=== PATIENT | male | born 1950 | race Caucasian/White ===

== ENCOUNTER 2024-12-02 15:47 | Inpatient (IN) ==
[2024-12-02] MEDS: OPTIRAY 320 125ml IV ONE (16:10)
[2024-12-02] MEDS ORDERED: LABETALOL HCL IV 5 MG/ML 20ML IV PRN ×2 (16:11→20:57)
--- NOTE | 2024-12-02 16:19 | CT Scan Report ---
Clinical History: Possible stroke Technique: Axial computed tomography images were obtained of the brain without intravenous contrast. Findings: There is mild cerebral atrophy, within expected limits for the patient's age. Extensive areas of decreased attenuation are seen within the periventricular white matter, likely representing chronic small vessel ischemic disease. There is no definite sign of acute or old infarction. No intracranial hemorrhage is evident. No definite mass lesion is seen on this noncontrast examination. There is no midline shift or other form of herniation. No hydrocephalus is seen. No fracture is identified. There is a small mucous retention cyst in the right maxillary sinus. The mastoid air cells appear clear. Impression: 1. Cerebral atrophy and chronic small vessel ischemic disease 2. No definite acute pathology These findings were discussed with the emergency department physician at 4:18 PM on 12/02/2024 Electronically signed by Cortez Alexis 12-02-2024 4:18 PM
[2024-12-02] MEDS: SODIUM CHLORIDE 0.9% 1,000 ML IV SCH (16:29)
--- NOTE | 2024-12-02 16:30 | Emergency Department Note ---
Impression & Plan Expressive aphasia, HTN (hypertension) ED Provider Note ED Provider Note NAME: JERZY OTT AGE:73 SEX: Male : 1950 ARRIVES VIA: private vehicle INFORMANT: Patient ED PROVIDER(s): Jeanie Lucas DO CHIEF COMPLAINT: difficulty speaking HPI: This is a 73-year-old male presents emerged apartment with family at bedside due to concern for difficulty speaking. Patient initially seen and made a stroke alert in triage by nursing staff as he was initially reported that patient symptoms began an hour ago. Patient taken immediately down for CT imaging. I was able to speak with the first who states that he has difficulty speaking actually began yesterday evening and then got worse today which prompted them to come in for further evaluation. She denies any recent illness, fevers or chills. She states no recent change in medication. She states the last change in medication was an increase in his sertraline 3 months ago which did seem to give him tremors. She states he has never had difficulty with speech like this before. She denies noting any facial droop. She denies that the patient complained of any pain or dizziness. Upon the patient returning to the room following CT, he denied any headache, dizziness, vision changes, chest pain, shortness of breath, abdominal pain, nausea or vomiting, weakness, or difficulty speaking. states at this time symptoms seem improved. PAST MEDICAL HISTORY:See Below PAST SURGICAL HISTORY:See Below FAMILY HISTORY:See Below SOCIAL HISTORY:See Below HOME MEDICATIONS:See Below ALLERGIES:See Below VITALS:See Below PHYSICAL EXAMINATION: GENERAL: alert, well appearing, well nourished, no distress, non-toxic EYE EXAM: normal conjunctiva, PERRL and EOM's grossly intact OROPHARYNX: no exudate, no erythema, lips, buccal mucosa, and tongue normal and mucous membranes are moist NECK: supple, no nuchal rigidity, no adenopathy, non-tender LUNGS: Clear to auscultation. Normal chest wall mechanics, no w/r/r HEART: no murmurs, S1 normal and S2 normal ABDOMEN: abdomen soft, non-tender, normo-active bowel sounds, no masses, no rebound or guarding. BACK: Back is symmetrical on inspection and there is no deformity, no midline tenderness, no CVA tenderness. SKIN: no rashes, petechiae, orbruising UPPER EXTREMITIES: upper extremities are grossly normal. FROM, nml pulses b/l. LOWER EXTREMITIES: No pitting edema. FROM, nml pulses b/l. NEURO EXAM: Normal sensorium, cranial nerves II-XII grossly intact, normal speech, no facial droop,nogross weakness of arms, no gross weakness of legs. Gross sensation intact. No ataxia. NIHSS 0 Vital Signs: reviewed and remarkable Differential Diagnosis: ischemic Stroke, hemorrhagic stroke, bells palsy, mass, neoplasm, migraine headache, seizure, subarachnoid hemorrhage, TIA, transient global amnesia, medication ADR, as well as others were considered MEDICAL DECISION MAKING: This is a 73-year-old male presents emergency department due to difficulty speaking. He was made a stroke alert in triage and taken directly to CT. Upon arrival in the room, exam performed which showed symptoms had resolved and an NIH stroke score was 0. Labs drawn and sent, IV established, EKG and chest x- ray performed at bedside interpreted by me. Patient started on IV fluids. Case discussed with on-call radiology regarding the CT imaging and then with [facility]. Given symptoms resolved and initially began 24 hours ago, no indication for TNK. Patient had no new or evolving changes on reassessment. Due to concern for symptoms though neurology recommended additional inpatient evaluation as well as additional antiplatelet medication and statin. Case discussed with the hospitalist team additionally for further evaluation and management. Consultation(s): 1618: Discussed with [facility] radiology. 1624: Discussed with [facility] neurology, Dr. [place]. Recommends asa 81 mg, plavix 300 mg, lipitor 40 mg and admission for further evaluation. 1712: Discussed with [facility] hospitalist team, for additional evaluation and management. ER Treatment Provided: See below Diagnostics Interpreted By Me: -ECG: Normal sinus at 76, normal axis, normal intervals, no acute ST/T wave changes -Cardiac Monitoring: An order was placed for continuous cardiac monitoring. The monitor shows a rate of 66 with normal sinus rhythm. -Laboratory studies: As stated above and show below. -Imaging studies: CT head: No ICH Triage Nursing Note Reviewed Prior/Outside Records Reviewed Critical Care: Critical care of 39 min performed to assess and manage high likelihood of life-threatening strokelike symptoms, involving labs and imaging performed with assessment to evaluate strokelike symptoms diagnosis with frequent reassessment. This time includes bedside time, treatment discussions with patient/family/consultants, documentation time and excludes procedure time. Past Med/Surg History Problem List Depression Hypomagnesemia DM type 2 (diabetes mellitus, type 2) Stroke-like symptoms HTN (hypertension) (Acute) Expressive aphasia (Acute) High cholesterol (Chronic) Nausea, vomiting, and diarrhea (Acute) Palpitations (Acute) Vomiting (Acute) Medical History No pertinent family history Diarrhea Hypertension Surgical History No pertinent past surgical history Social History Smoking Status: Former smoker Smoking End Date: 1985; Hx Alcohol Use: No Hx Substance Use: No Preferred Language: Estonian Communication Ability: Effective Material Handler Required: No Beliefs That Will Affect Care: None Current Living Situation: Spouse Other Information That Helps Us Care for You: No Feels Safe at Home: Yes Safety Concerns: Feels Safe At This Time Assistive Devices: CPAP Allergies Allergies Allergy/AdvReac Type Severity Reaction Status Date / Time citalopram Allergy Intermediate "ITCHY Unverified 09/19/20 15:09 HANDS" oxycodone Allergy Intermediate GI SYMPTOMS Verified 09/19/20 15:09 meperidine Allergy Mild Verified 09/19/20 15:09 metaxalone Allergy Unknown Verified 09/19/20 15:09 Sulfa (Sulfonamide Allergy Unknown Verified 09/19/20 15:09 Antibiotics) promethazine AdvReac Mild TRIGGERS Verified 09/19/20 15:09 MIGRAINES Home Meds Home Medications Medication Instructions Recorded Confirmed aspirin 81 mg tablet,delayed 81 mg PO QAM 09/19/20 12/02/24 release atorvastatin 40 mg tablet 40 mg PO QAM 09/19/20 12/02/24 hydrocodone 5 mg-acetaminophen 325 1 tab PO TID PRN Pain 09/19/20 12/02/24 mg tablet omeprazole 20 mg capsule,delayed 20 mg PO QAM 09/19/20 12/02/24 release betamethasone, augmented 0.05 % 1 applic topical BID PRN 12/02/24 12/02/24 topical ointment DIRECTED metformin 500 mg tablet,extended 500 mg PO BIDM 12/02/24 12/02/24 release 24 hr multivitamin 1 tab PO QAM 12/02/24 12/02/24 ondansetron 4 mg disintegrating 4 mg translingual Q8 PRN 12/02/24 12/02/24 tablet NAUSEA/VOMITING sertraline 100 mg tablet 100 mg PO QPM 12/02/24 12/02/24 sildenafil 50 mg tablet 50 - 100 mg PO DAILY PRN Erectile 12/02/24 12/02/24 Dysfunction tamsulosin 0.4 mg capsule 0.4 mg PO QAM 12/02/24 12/02/24 testosterone 50 mg/5 gram (1 %) 50 mg transdermal QAM 12/02/24 12/02/24 transdermal gel Results & Data (ED) Vital Signs Vital Signs - 24 hr 12/02/24 15:55 12/02/24 16:15 12/02/24 16:32 Temperature 36.2 C L Temperature Source Skin Pulse Rate 83 Pulse Rate [Apical] 75 71 Pulse Rhythm [Apical] Regular Pulse Strength [Apical] Normal Normal Respiratory Rate 18 24 18 Respiratory Effort / Characteristics Non-Labored Non-Labored Spontaneous Non-Labored Spontaneous Respiratory Depth Normal Normal Normal Respiratory Pattern Regular Regular Regular Blood Pressure 173/62 H Blood Pressure [Right Arm] 182/85 H 161/82 H Blood Pressure Mean 99 Blood Pressure Mean [Right Arm] 117 108 Blood Pressure Position [Right Arm] Sitting Pulse Oximetry 96 98 98 Oxygen Delivery Method Room Air Room Air Room Air Sepsis Recent Fever Within 48 Hours No Sepsis New/Unexplained Change in Mental Status N/A Sepsis Action Taken by Nursing No Action Required 12/02/24 16:35 Temperature Temperature Source Pulse Rate 86 Pulse Rate [Apical] Pulse Rhythm [Apical] Pulse Strength [Apical] Respiratory Rate Respiratory Effort / Characteristics Respiratory Depth Respiratory Pattern Blood Pressure Blood Pressure [Right Arm] Blood Pressure Mean Blood Pressure Mean [Right Arm] Blood Pressure Position [Right Arm] Pulse Oximetry Oxygen Delivery Method Sepsis Recent Fever Within 48 Hours Sepsis New/Unexplained Change in Mental Status Sepsis Action Taken by Nursing Laboratory Data 12/03/24 05:23 12/03/24 05:23 Lab Results 12/02/24 Range/Units 16:19 WBC 7.09 (4.8-10.8) K/ul RBC 4.03 L (4.70-6.10) M/uL Hgb 11.8 L (14.0-18.0) g/dl Hct 34.8 L (42.0-52.0) % MCV 86.4 (80.0-100.0) fL MCH 29.3 (25.0-34.0) pg MCHC 33.9 (32.0-36.0) g/dL RDW Std Deviation 40.5 (36.4-46.3) fL RDW Coeff of Carmen 13.0 (11.5-14.5) % Plt Count 179 (130-400) K/uL MPV 9.2 L (9.4-12.4) fL Immature Gran % (Auto) 0.4 % Neut % (Auto) 50.5 % Lymph % (Auto) 36.4 % Kent % (Auto) 9.0 % Eos % (Auto) 3.1 % Baso % (Auto) 0.6 % Neut # (Auto) 3.58 (1.40-6.50) K/uL Lymph # (Auto) 2.58 (1.20-3.40) K/uL Kent # (Auto) 0.64 H (0.11-0.59) K/uL Eos # (Auto) 0.22 (0.00-0.50) K/uL Baso # (Auto) 0.04 (0.00-0.20) K/uL Immature Gran # (Auto) 0.03 (0.01-0.20) K/uL PT 11.0 (9.0-12.0) Seconds INR 1.0 (0.9-1.1) APTT 24 (21-31) Seconds PTT Ratio 0.9 Sodium 137 (136-145) mmol/L Potassium 3.5 (3.5-5.1) mmol/L Chloride 104 (98-107) mmol/L Carbon Dioxide 28 (21-32) mmol/L Anion Gap 5 (3-11) BUN 19 (6-23) mg/dl Creatinine 0.80 (0.6-1.4) mg/dl Est Cr Clr Drug Dosing 83.6 ml/min eGFR 92.87 BUN/Creatinine Ratio 23.8 H (10-20) Glucose 164 H (70-99(Fasting)) mg/dl Lactate 1.7 (0.4-2.0) mmol/L Calcium 8.4 L (8.6-10.3) mg/dl Magnesium 1.4 L (1.7-2.4) mg/dl Total Bilirubin 0.5 (0.2-1.0) mg/dl AST 16 (13-39) U/L ALT 15 (7-52) U/L Alkaline Phosphatase 62 (34-104) U/L Troponin I High Sens 3.7 (0-20) pg/ml Total Protein 5.8 L (6.0-8.3) gm/dl Albumin 3.7 (3.4-5.0) gm/dl Globulin 2.1 L (2.5-4.0) gm/dl Albumin/Globulin Ratio 1.8 (0.9-2) Blood Type O Negative Antibody Screen NEGATIVE Administered Medications Acetaminophen (Acetaminophen 325 Mg Tab) 650 mg PO Q4H PRN PRN Reason: Pain or Fever Stop: 01/01/25 20:56 Last Admin: 12/03/24 15:26 Dose: 650 mg Documented By: [facility] Admin: 12/03/24 11:17 Dose: 650 mg Documented By: [facility] Aspirin (Aspirin 81 Mg Ectab) 81 mg PO [facility] Stop: 01/02/25 08:59 Last Admin: 12/03/24 09:12 Dose: 81 mg Documented By: [facility] Atorvastatin Calcium (Atorvastatin 40 Mg Tab) 40 mg PO [facility] Stop: 01/02/25 08:59 Last Admin: 12/03/24 09:12 Dose: 40 mg Documented By: [facility] Heparin Sodium (Porcine) (Heparin Sod 5,000 Unit/0.5 Ml Vial) 5,000 units SQ Q12 [facility] Stop: 01/01/25 20:59 Last Admin: 12/03/24 20:29 Dose: 5,000 units Documented By: Admin: 12/03/24 09:26 Dose: 5,000 units Documented By: Admin: 12/02/24 21:28 Dose: 5,000 units Documented By: JASON Insulin Aspart (Insulin Aspart Per Unit Charge) 0 units SC ACHS [facility] Stop: 01/01/25 20:59 Last Admin: 12/03/24 20:29 Dose: Not Given Documented By: Admin: 12/03/24 18:14 Dose: 4 units Documented By: ANSELMO Co-signed By: JOHANNA Admin: 12/03/24 14:16 Dose: 7 units Documented By: ANSELMO Co-signed By: JOHANNA Admin: 12/03/24 09:42 Dose: 4 units Documented By: ANSELMO Co-signed By: JOHANNA Admin: 12/02/24 21:29 Dose: Not Given Documented By: JASON Multivitamins (Multivitamin Tab) 1 tab PO [facility] Stop: 01/02/25 08:59 Last Admin: 12/03/24 09:12 Dose: 1 tab Documented By: ANSELMO Pantoprazole Sodium (Pantoprazole 40 Mg Tab) 40 mg PO [facility] Stop: 01/02/25 08:59 Last Admin: 12/03/24 09:12 Dose: 40 mg Documented By: ANSELMO Sertraline HCl (Sertraline Hcl 100 Mg Tablet) 100 mg PO QPM [facility] Stop: 01/01/25 20:59 Last Admin: 12/03/24 20:28 Dose: 100 mg Documented By: Admin: 12/02/24 21:30 Dose: 100 mg Documented By: JASON Discontinued Medications Atorvastatin Calcium (Atorvastatin 40 Mg Tab) 40 mg PO NOW STA Stop: 12/02/24 17:09 Last Admin: 12/02/24 17:19 Dose: 40 mg Documented By: HALINA Clopidogrel Bisulfate (Clopidogrel Bisulfate 300 Mg Tab) 300 mg PO NOW STA Stop: 12/02/24 17:09 Last Admin: 12/02/24 17:19 Dose: 300 mg Documented By: HALINA Clopidogrel Bisulfate (Clopidogrel Bisulfate 75 Mg Tab) 75 mg PO [facility] Stop: 01/02/25 08:59 Last Admin: 12/03/24 09:12 Dose: 75 mg Documented By: ANSELMO Gadobutrol (Gadobutrol 65ml Vial) 8.5 ml IV ONCE ONE Stop: 12/03/24 17:06 Last Admin: 12/03/24 17:05 Dose: 8.5 ml Documented By: MOLINA Sodium Chloride (Nss) 1,000 mls @ 125 mls/hr IV .Q8H [facility] Stop: 12/03/24 16:14 Last Infusion: 12/02/24 21:11 Dose: Infused Documented By: Admin: 12/02/24 16:29 Dose: 125 mls/hr Documented By: HALINA Magnesium Sulfate/Dextrose (Magnesium Sulfate / D5w) 1 gm in 100 mls @ 100 mls/hr IV NOW STA Stop: 12/02/24 18:05 Last Infusion: 12/02/24 18:20 Dose: Infused Documented By: Admin: 12/02/24 17:19 Dose: 100 mls/hr Documented By: HALINA Magnesium Sulfate/Dextrose (Magnesium Sulfate / D5w) 1 gm in 100 mls @ 100 mls/hr IV Q1H [facility] Stop: 12/02/24 20:14 Last Infusion: 12/02/24 21:09 Dose: Infused Documented By: Admin: 12/02/24 19:28 Dose: 100 mls/hr Documented By: Infusion: 12/02/24 19:27 Dose: Infused Documented By: Admin: 12/02/24 18:27 Dose: 100 mls/hr Documented By: HALINA Ioversol (Optiray 320 125ml) 119 ml IV ONCE ONE Stop: 12/02/24 16:10 Last Admin: 12/02/24 16:10 Dose: 119 ml Documented By: NINO Imaging Data Radiologist's Impression: Head CT 12/02/24 16:00 Clinical History: Possible stroke Technique: Axial computed tomography images were obtained of the brain without intravenous contrast. Findings: There is mild cerebral atrophy, within expected limits for the patient's age. Extensive areas of decreased attenuation are seen within the periventricular white matter, likely representing chronic small vessel ischemic disease. There is no definite sign of acute or old infarction. No intracranial hemorrhage is evident. No definite mass lesion is seen on this noncontrast examination. There is no midline shift or other form of herniation. No hydrocephalus is seen. No fracture is identified. There is a small mucous retention cyst in the right maxillary sinus. The mastoid air cells appear clear. Impression: 1. Cerebral atrophy and chronic small vessel ischemic disease 2. No definite acute pathology These findings were discussed with the emergency department physician at 4:18 PM on 12/02/2024 Electronically signed by Cortez Alexis 12-02-2024 4:18 PM Head CTA 12/02/24 16:06 Clinical history: Expressive aphasia. Possible stroke Technique: Axial computed tomography images were obtained of the brain after the administration of intravenous contrast according to the CT angiogram protocol Findings: There is calcified plaque within the cavernous and supraclinoid segments of the internal carotid arteries bilaterally No definite stenosis or aneurysm is seen of the anterior, middle, or posterior cerebral artery circulations. The visualized vertebral arteries and the basilar artery appear unremarkable Impression: No definite stenosis or aneurysm of the intracranial arteries Electronically signed by Cortez Alexis 12-02-2024 4:34 PM Neck CTA 12/02/24 16:06 Clinical history: Expressive aphasia. Possible stroke Technique: Axial computed tomography images were obtained of the neck after the administration of intravenous contrast according to the CT angiogram protocol Findings: No stenosis is seen of the common carotid arteries bilaterally. There is partially calcified plaque within the right carotid bulb and the proximal left internal carotid artery, less than 30% diameter narrowing. The remainder of the internal carotid arteries appear patent bilaterally. No stenosis of the external carotid arteries is seen The vertebral arteries are patent bilaterally with no significant stenosis seen. 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 Impression: Bilateral carotid atherosclerosis, without apparent stenosis Electronically signed by Cortez Alexis 12-02-2024 4:36 PM Discharge Plan Visit Data Chief Complaint: TIA Symptoms Stated Complaint: SPEACH, BALANCE, SHAKY ED Provider: Jeanie Lucas Discharge Problem: Expressive aphasia, HTN (hypertension) Patient Disposition: Admitted As Inpatient Discharge Instructions Interventions: ED Discharge Assessment Last Done: 12/02/24 20:21
--- NOTE | 2024-12-02 16:34 | CT Scan Report ---
Clinical history: Expressive aphasia. Possible stroke Technique: Axial computed tomography images were obtained of the brain after the administration of intravenous contrast according to the CT angiogram protocol Findings: There is calcified plaque within the cavernous and supraclinoid segments of the internal carotid arteries bilaterally No definite stenosis or aneurysm is seen of the anterior, middle, or posterior cerebral artery circulations. The visualized vertebral arteries and the basilar artery appear unremarkable Impression: No definite stenosis or aneurysm of the intracranial arteries Electronically signed by Cortez Alexis 12-02-2024 4:34 PM
--- NOTE | 2024-12-02 16:37 | CT Scan Report ---
Clinical history: Expressive aphasia. Possible stroke Technique: Axial computed tomography images were obtained of the neck after the administration of intravenous contrast according to the CT angiogram protocol Findings: No stenosis is seen of the common carotid arteries bilaterally. There is partially calcified plaque within the right carotid bulb and the proximal left internal carotid artery, less than 30% diameter narrowing. The remainder of the internal carotid arteries appear patent bilaterally. No stenosis of the external carotid arteries is seen The vertebral arteries are patent bilaterally with no significant stenosis seen. 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 Impression: Bilateral carotid atherosclerosis, without apparent stenosis Electronically signed by Cortez Alexis 12-02-2024 4:36 PM
[2024-12-02 16:38] LABS: Basophils # (auto) 0.04 K/uL (0.00-0.20); Basophils % (auto) 0.6 %; Eosinophils # (auto) 0.22 K/uL (0.00-0.50); Eosinophils % (auto) 3.1 %; Hematocrit (blood only) 34.8 % (42.0-52.0); Hemoglobin 11.8 g/dl (14.0-18.0); Immature Granulocytes # (auto) 0.03 K/uL (0.01-0.20); Immature Granulocytes % (auto) 0.4 %; Lymphocytes # (auto) 2.58 K/uL (1.20-3.40); Lymphocytes % (auto) 36.4 %; Mean Corpuscular Hemoglobin 29.3 pg (25.0-34.0); Mean Corpuscular Hgb Conc 33.9 g/dL (32.0-36.0); Mean Corpuscular Volume 86.4 fL (80.0-100.0); Mean Platelet Volume 9.2 fL (9.4-12.4); Monocytes # (auto) 0.64 K/uL (0.11-0.59); Neutrophils # (auto) 3.58 K/uL (1.40-6.50); Neutrophils % (auto) 50.5 %; Platelet Count 179 K/uL (130-400); RDW Standard Deviation 40.5 fL (36.4-46.3); Red Blood Count 4.03 M/uL (4.70-6.10); White Blood Count 7.09 K/ul (4.8-10.8)
[2024-12-02 16:50] LABS: Albumin Globulin Ratio 1.8 (0.9-2); Albumin Level 3.7 gm/dl (3.4-5.0); BUN Creatinine Ratio 23.8 (10-20); Bilirubin,Total 0.5 mg/dl (0.2-1.0); Calcium 8.4 mg/dl (8.6-10.3); Creatinine Clr Calc Pharmacy 83.6 ml/min; Globulin 2.1 gm/dl (2.5-4.0); Magnesium 1.4 mg/dl (1.7-2.4); Potassium 3.5 mmol/L (3.5-5.1); Total Protein 5.8 gm/dl (6.0-8.3)
[2024-12-02 16:57] LABS: Troponin I High Sensitivity 3.7 pg/ml (0-20)
[2024-12-02 17:00] LABS: Partial Thromboplastin Ratio 0.9; Partial Thromboplastin Time 24 Seconds (21-31)
--- NOTE | 2024-12-02 17:14 | History & Physical Report ---
Date of Service December 02, 2024 Assessment & Plan (1) Stroke-like symptoms: Plan: Jean Gates is a 73y/o M with PMHx significant for HTN, HLD, DMII, diabetic polyneuropathy, JERMAINE on CPAP, asthma, GERD, BPH with LUTS, sacroiliitis, insomnia and depression who presented to the ED for evaluation of strokelike symptoms - notably expressive aphasia. Refer to [facility] for further details. Head CT - No acute pathology. Cerebral atrophy and chronic small vessel ischemic disease. Neck CTA - Bilateral carotid atherosclerosis without apparent stenosis. Head CTA - No definite stenosis or aneurysm of the intracranial arteries. S/p 300mg Plavix and 40mg Lipitor in the ED as advised by the [facility] per discussion with the ED provider. Continue ASA 81mg daily. Adding on Plavix 75mg daily starting tomorrow AM. Continue Lipitor 40mg daily. Feels speech is back to baseline at time of our evaluation in the ED. Allow for permissive HTN; PRN IV antihypertensives for SBP>185. Full stroke work-up pending and includes: brain MRI, echocardiogram, neurology consult, AM lipid panel, speech therapy evaluation and PT/OT evaluations. (2) DM type 2 (diabetes mellitus, type 2): Plan: Hold home metformin, SSI regimen while inpatient. BSG checks ACHS. Most recent Hgb A1c was 6.2% about 2 months ago. (3) Hypomagnesemia: Plan: Mag 1.4 on presentation. S/p 1 bag IV mag in ED. Will give another 2 bags of IV mag. Continue to monitor and replete PRN. (4) Depression: Plan: Continue Zoloft 100mg QPM. Recently increased dose of Zoloft from 50mg QPM to 100mg QPM about 2 months ago. Will need close PCP f/u appointment to discuss transitioning to a different antidepressant medication possibly as the Zoloft has caused him to develop BUE tremors. DVT Prophylaxis: SQ Heparin Code Status: FULL CODE PCP: Arthur Ng DO Disposition: Admit to Med/Telemetry for further inpatient evaluation and management. Patient seen in collaboration with Dr. Andrews. Please see addendum. I spent a total of 50 minutes coordinating, documenting, and providing care for this patient excluding time spent in the performance of separately billed services or time spent by another provider/QHP. This included personally reviewing all current laboratories and imaging studies, medical reconciliation, outpatient chart review and discussion with specialists. This chart was completed in part utilizing Speech Voice Recognition Software. Grammatical errors, random word insertions, pronoun errors, and incomplete sentences are an occasional consequence of this system due to software limitations, ambient noise, and hardware issues. Any formal questions or concerns about the content, text, or information contained within the body of this dictation should be directly addressed to the provider for clarification. History of Present Illness Chief Complaint: Strokelike Symptoms Primary Care Provider: Arthur Ng DO Jean Gates is a 73y/o M with PMHx significant for HTN, HLD, DMII, diabetic polyneuropathy, JERMAINE on CPAP, asthma, GERD, BPH with LUTS, sacroiliitis, insomnia and depression who presented to the ED for evaluation of strokelike symptoms including expressive aphasia and word finding difficulty. History obtained with the patient, at bedside and associated chart review. Patient seen at bedside with Dr. Andrews. Patient initially seen in ED triage and made a stroke alert by nursing staff as it was reported that the patient's strokelike symptoms began an hour prior to presentation. However, upon the ED provider's further discussion with the patient's at bedside, it was determined that the patient's symptoms actually started about 2 weeks ago and subsequently worsened today which prompted her to bring him in for evaluation. Patient reports difficulty with word finding and expressive aphasia over the past 2 weeks. Also with some slurred speech. mentions that it got to the point today where he could "not get his words out." Patient also mentions that he was trying to file out his tax forms earlier today and was unable to write. Mentions he could hold a pen but did could not comprehend how to write anything. Denies any weakness, numbness or tingling in his extremities since this all began 2 weeks ago. Also denies any facial drooping, visual disturbances or gait abnormalities over the past 2 weeks. No recent medication changes other than his Zoloft dose was increased from 50mg QPM to 100mg QPM about 2 months ago. He has BUE tremors which have been ongoing since he started taking Zoloft. He notes that his tremors seem to be worse since increasing his Zoloft dose 2 months ago but denies any loss of strength in his BUE. At the time of our evaluation, patient feels his speech is back to baseline. Head CT noted cerebral atrophy and chronic small vessel ischemic disease but otherwise was negative for any acute infarcts. Head CTA with no definite stenosis or aneurysm of the intracranial arteries. Neck CTA with bilateral carotid atherosclerosis however there is no apparent stenosis. CXR unremarkable. S/p 300mg Plavix and 40mg Lipitor in the ED [facility] per discussion with the ED provider. Thrombolytics not indicated. Also s/p 1L NSS in the ED. No alcohol use. Stopped smoking back in October 1985. 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 Allergies Allergy/AdvReac Type Severity Reaction Status Date / Time citalopram Allergy Intermediate "ITCHY Unverified 09/19/20 15:09 HANDS" oxycodone Allergy Intermediate GI SYMPTOMS Verified 09/19/20 15:09 meperidine Allergy Mild Verified 09/19/20 15:09 metaxalone Allergy Unknown Verified 09/19/20 15:09 Sulfa (Sulfonamide Allergy Unknown Verified 09/19/20 15:09 Antibiotics) promethazine AdvReac Mild TRIGGERS Verified 09/19/20 15:09 MIGRAINES Home Medications Medication Instructions Recorded Confirmed Type aspirin 81 mg tablet,delayed 81 mg PO QAM 09/19/20 12/02/24 History release atorvastatin 40 mg tablet 40 mg PO QAM 09/19/20 12/02/24 History hydrocodone 5 mg-acetaminophen 325 1 tab PO TID PRN Pain 09/19/20 12/02/24 Hi story mg tablet omeprazole 20 mg capsule,delayed 20 mg PO QAM 09/19/20 12/02/24 History release betamethasone, augmented 0.05 % 1 applic topical BID PRN 12/02/24 12/02/24 History topical ointment DIRECTED metformin 500 mg tablet,extended 500 mg PO BIDM 12/02/24 12/02/24 History release 24 hr multivitamin 1 tab PO QAM 12/02/24 12/02/24 History ondansetron 4 mg disintegrating 4 mg translingual Q8 PRN 12/02/24 12/02/24 History tablet NAUSEA/VOMITING sertraline 100 mg tablet 100 mg PO QPM 12/02/24 12/02/24 History sildenafil 50 mg tablet 50 - 100 mg PO DAILY PRN Erectile 12/02/24 12/02/24 History Dysfunction tamsulosin 0.4 mg capsule 0.4 mg PO QAM 12/02/24 12/02/24 History testosterone 50 mg/5 gram (1 %) 50 mg transdermal QAM 12/02/24 12/02/24 History transdermal gel Past Med/Surg History Problem List Depression Hypomagnesemia DM type 2 (diabetes mellitus, type 2) Stroke-like symptoms HTN (hypertension) (Acute) Expressive aphasia (Acute) High cholesterol (Chronic) Nausea, vomiting, and diarrhea (Acute) Palpitations (Acute) Vomiting (Acute) Medical History No pertinent family history Diarrhea Hypertension Surgical History No pertinent past surgical history Social History Smoking Status: Former smoker Preferred Language: Vietnamese Feels Safe at Home: Yes Review of Systems Review of Systems: At least ten systems reviewed and negative, except as noted in the HPI. Physical Exam Physical Exam: Please refer to Dr. Andrews's addendum for physical examination findings. Results & Data Results & Data Vital Signs (Past 12 Hours) Vital Signs Temp Pulse Pulse Resp BP BP Pulse Ox 12/02/24 16:35 86 12/02/24 16:32 71 18 161/82 H 98 12/02/24 16:15 75 24 182/85 H 98 12/02/24 15:55 36.2 C L 83 18 173/62 H 96 O2 Del Method 12/02/24 16:35 12/02/24 16:32 Room Air 12/02/24 16:15 Room Air 12/02/24 15:55 Room Air Laboratory Results Short CBC 12/02/24 Range/Units 16:19 WBC 7.09 (4.8-10.8) K/ul Hgb 11.8 L (14.0-18.0) g/dl Hct 34.8 L (42.0-52.0) % Plt Count 179 (130-400) K/uL BMP 12/02/24 16:19 Sodium 137 Potassium 3.5 Chloride 104 Carbon Dioxide 28 BUN 19 Creatinine 0.80 Glucose 164 H Calcium 8.4 L Liver Function 12/02/24 Range/Units 16:19 Total Bilirubin 0.5 (0.2-1.0) mg/dl AST 16 (13-39) U/L ALT 15 (7-52) U/L Alkaline Phosphatase 62 (34-104) U/L Albumin 3.7 (3.4-5.0) gm/dl Diagnostic Findings Head CT 12/02/24 16:00 Clinical History: Possible stroke Technique: Axial computed tomography images were obtained of the brain without intravenous contrast. Findings: There is mild cerebral atrophy, within expected limits for the patient's age. Extensive areas of decreased attenuation are seen within the periventricular white matter, likely representing chronic small vessel ischemic disease. There is no definite sign of acute or old infarction. No intracranial hemorrhage is evident. No definite mass lesion is seen on this noncontrast examination. There is no midline shift or other form of herniation. No hydrocephalus is seen. No fracture is identified. There is a small mucous retention cyst in the right maxillary sinus. The mastoid air cells appear clear. Impression: 1. Cerebral atrophy and chronic small vessel ischemic disease 2. No definite acute pathology These findings were discussed with the emergency department physician at 4:18 PM on 12/02/2024 Electronically signed by Cortez Alexis 12-02-2024 4:18 PM Head CTA 12/02/24 16:06 Clinical history: Expressive aphasia. Possible stroke Technique: Axial computed tomography images were obtained of the brain after the administration of intravenous contrast according to the CT angiogram protocol Findings: There is calcified plaque within the cavernous and supraclinoid segments of the internal carotid arteries bilaterally No definite stenosis or aneurysm is seen of the anterior, middle, or posterior cerebral artery circulations. The visualized vertebral arteries and the basilar artery appear unremarkable Impression: No definite stenosis or aneurysm of the intracranial arteries Electronically signed by Cortez Alexis 12-02-2024 4:34 PM Neck CTA 12/02/24 16:06 Clinical history: Expressive aphasia. Possible stroke Technique: Axial computed tomography images were obtained of the neck after the administration of intravenous contrast according to the CT angiogram protocol Findings: No stenosis is seen of the common carotid arteries bilaterally. There is partially calcified plaque within the right carotid bulb and the proximal left internal carotid artery, less than 30% diameter narrowing. The remainder of the internal carotid arteries appear patent bilaterally. No stenosis of the external carotid arteries is seen The vertebral arteries are patent bilaterally with no significant stenosis seen. 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 Impression: Bilateral carotid atherosclerosis, without apparent stenosis Electronically signed by Cortez Alexis 12-02-2024 4:36 PM Medications Administered Sodium Chloride (Nss) 1,000 mls @ 125 mls/hr IV .Q8H KAREEN Stop: 12/03/24 16:14 Last Admin: 12/02/24 16:29 Dose: 125 mls/hr Documented By: SNS Discontinued Medications Ioversol (Optiray 320 125ml) 119 ml IV ONCE ONE Stop: 12/02/24 16:10 Last Admin: 12/02/24 16:10 Dose: 119 ml Documented By: NINO Code Status & VTE Plan Code Status FULL CODE Supervising Physician Co-Signing Physician Notes 73-year-old male with PMH of HTN, HLD, T2DM, diabetic polyneuropathy, JERMAINE on CPAP, asthma, GERD, BPH with LUTS, sacroiliitis, insomnia and depression pr esented to the ED for evaluation of strokelike symptoms. Patient reports that he has been having difficulty finding words since about 2 weeks, gradually worsening, and hence decided to present to the ED. He denies any numbness or tingling, denies any unilateral weakness of arms or legs. He reports improvement in this expressive aphasia after coming at bedside exam. Patient denies fever/cough/sore throat/chest pain/belly pain/pain or burning with passing urine/acute changes in bowel habits/nausea/vomiting/difficulty swallowing. Patient reports appetite being okay. Labs reviewed, CBC WNL, RFT fairly WNL, magnesium 1.4 we will repalce w/ 2 gm IV magnesium. UA negative for UTI. Admitting CT head, CTA head and neck reviewed. No acute finding. CXR with no acute finding. Strokelike symptoms: Will get MRI brain, echo, lipid panel, a1c, neurology consult, telemetry monitoring, permissive hypertension. Add as needed blood pressure medications for blood pressure above 185 mmHg, 5 Mg IV labetalol q4h alternate with 5 Mg IV hydralazine q4h]. add plavix, c/w home aspirin and statin. On exam: GENERAL: Alert and oriented x3. NAD, on RA. some pauses during communication, overall was good. HEENT: No pallor, no icterus. Pupils equal, round and reactive to light. Oral mucosa moist. NECK: No JVD, no neck masses. HEART: S1 and S2 heard. Regular rate and rhythm. No murmur, no gallop. RESPIRATORY SYSTEM: Normal AP diameter. No accessory muscle use. No wheezing, no crackles. ABDOMEN: Soft, bowel sounds present, nontender, no distention. CENTRAL NERVOUS SYSTEM: No facial droop. Speech is clear. Obeys simple commands. Moves extremities. power 5/5 all extremities. EXTREMITIES: No edema, no erythema seen. I have seen and examined the patient and have discussed the case with the provider above. I agree with the assessment and plan as stated. Time spent separately: 35 min. (2) DM type 2 (diabetes mellitus, type 2) Diabetes mellitus complication status: with other specified complication Diabetes mellitus [employer] insulin use: without [employer] use Qualified Code(s): E11.69 - Type 2 diabetes mellitus with other specified complication (4) Depression Depression Type: unspecified Qualified Code(s): F32.A - Depression, unspecifi ed
[2024-12-02] MEDS: ATORVASTATIN 40 MG TAB PO STA (17:19)
[2024-12-02] MEDS: MAGNESIUM SULFATE / D5W 1 GM/100 ML BAG IV STA (17:19)
[2024-12-02] MEDS: CLOPIDOGREL BISULFATE 300 MG TAB PO STA (17:19)
--- NOTE | 2024-12-02 17:26 | XRay Report ---
Exam: Chest (two views) Reason for exam: Stroke alert Previous studies 01/05/2016 PA and lateral views of the chest demonstrate the lung melissa to be clear and normally expanded. The cardiovascular markings and pulmonary vascular pattern appear normal. Mediastinal structures and ravin are normal. Chronic elevation the right hemidiaphragm is stable. The bones and soft tissues show no active process. Impression: Negative for active cardiopulmonary disease. Electronically signed by Jay Jay Martin 12-02-2024 5:26 PM
[2024-12-02 17:41] LABS: Appearance Urine Clear (Clear); Bilirubin Urine Negative (Negative); Blood Urine Negative (Negative); Color Urine Yellow; Glucose Urine UA Negative (Negative); Ketones Urine Negative (Negative); Leukocyte Esterase Urine Negative (Negative); Nitrite Urine Negative (Negative); Protein Urine Negative (Negative); Specific Gravity Urine > 1.045 (1.000-1.030); Urobilinogen Urine Negative (Negative); pH Urine 5.5 (4.5-7.5)
[2024-12-02] MEDS: MAGNESIUM SULFATE / D5W 1 GM/100 ML BAG IV SCH (18:27)
[2024-12-02] MEDS ORDERED: ONDANSETRON INJ 2 MG/ML 2 ML VIAL IV PRN (20:57)
[2024-12-02] MEDS ORDERED: GLUCOSE 10 TAB/TUBE PO PRN (20:57)
[2024-12-02] MEDS ORDERED: GLUCOSE 40% GEL 15 GM TUBE PO PRN (20:57)
[2024-12-02] MEDS ORDERED: GLUCAGON FOR INJ 1 MG VIAL SQ PRN (20:57)
[2024-12-02] MEDS ORDERED: MAGNESIUM HYDROXIDE SUSP 30 ML UDC PO PRN (20:57)
[2024-12-02] MEDS ORDERED: hydrALAZINE HCL 20 MG/ML VIAL IV PRN (20:57)
[2024-12-02] MEDS ORDERED: DEXTROSE 50% 50 ML SYRINGE IV PRN (20:57)
[2024-12-02] MEDS ORDERED: POLYETHYLENE (MIRALAX) 17 GM PACK PO PRN (20:57)
[2024-12-02] MEDS ORDERED: PHARMACIST DISCHARGE MED REC CONSULT PRN (20:57)
[2024-12-02] MEDS ORDERED: CARBOHYDRATES FOR HYPOGLYCEMIA PO PRN (20:57)
[2024-12-02] MEDS: HEPARIN SOD 5,000 UNIT/0.5 ML VIAL SQ SCH (21:28)
[2024-12-02] MEDS: INSULIN ASPART PER UNIT CHARGE SC SCH (21:29)
[2024-12-02] MEDS: SERTRALINE HCL 100 MG TABLET PO SCH (21:30)
--- NOTE | 2024-12-03 00:33 | Magnetic Resonance Report ---
Exam(s): MRI HEAD Without Contrast EXAM: MR Head Without Intravenous Contrast CLINICAL HISTORY: Reason for exam: stroke r/o. TECHNIQUE: Magnetic resonance images of the head/brain without intravenous contrast in multiple planes. COMPARISON: No relevant prior studies available. FINDINGS: Brain: Advanced nonspecific right lateral changes. The flow voids at the base the brain are intact. No mass. No hemorrhage. No acute infarct. Ventricles: Unremarkable. No ventriculomegaly. Bones/joints: Unremarkable. No acute fracture. Sinuses: Unremarkable as visualized. No acute sinusitis. Mastoid air cells: Unremarkable as visualized. No mastoid effusion. Orbits: Bilateral lens replacements. IMPRESSION: No evidence for acute intracranial pathology. Electronically signed by: Amalia Barker MD 12/03/24 00:31 AM
--- OUTSIDE RECORDS SUMMARY | 2024-12-03 04:48 | External Medical Summary | Summary of Care ---
Author Name Unknown Organization [facility] Address [address] [place] [address] Phone [phone] Care Team Providers Care Mason Apprentice Name Role Phone Jessie Ng DO Primary Care Provider Reason for Visit * Reason Onset Date Comments Medication Refill 11/26/2024 Encounter Details Date Type Department Care Team (Late st Contact Info) Description 11/26/2024 Refill Family Practice [facility] [address] [place] [address] Jessie Ng DO [address] [place] [address] Pain Allergies Active Allergy Reactions Criticality Noted Date Comments Amoxicillin-Pot Clavulanate Diarrhea Low 06/18/20 14 Metaxalone 06/18/1998 Skelexin-numbness and tingling, itching Percodan 10/12/1997 GI upset Sulfa Antibiotics 10/28/2002 rash documented as of this encounter (statuses as of 12/01/2024) Medications aspirin enteric coated 81 MG TBEC Take 1 Tablet by mouth in the morning. 05/07/20 17 Active Blood Glucose Monitoring Suppl (Neema VERIO) w/Device KITIndications:Ty pe 2 diabetes mellitus without complication, without long-term current use of insulin (HCC) Use up to 4 times a day E11.9 1 Kit 05/20/20 20 Active OneTouch UltraSoft Lancets MISCIndications:T ype 2 diabetes mellitus without complication, without long-term current use of insulin ([facility]) Use as directed 4 times a day as needed for Hyperglycemia (high sugar). Use up to four times a day as directed 100 Each 11 05/20/20 20 Active Multi-Vitamin Oral Tablet Take 1 Tablet by mouth in the morning. 90 Tablet 3 03/26/20 24 Active Betamethasone Dipropionate Aug 0.05 % External Ointment (Diprolene)Indica tions:Dermatitis Apply to affected area twice a day, do not use for more than 2 weeks at a time 50 g 3 04/17/20 24 Active metFORMIN HCl ER 500 MG Oral Tablet Extended Release 24 Hour (Glucophage XR)Indications:Ty pe 2 diabetes mellitus without complication, without long-term current use of insulin ([facility]) Take 1 Tablet by mouth 2 times a day with morning and evening meals. 180 Tablet 3 06/16/20 24 Active Sertraline HCl 100 MG Oral Tablet (Zoloft)Indicatio ns:Moderate episode of recurrent major depressive disorder (HCC) Take 1 Tablet by mouth in the morning. 90 Tablet 3 09/17/20 24 Active Tamsulosin HCl 0.4 MG Oral Capsule (Flomax) Take 1 Capsule by mouth in the morning. 30 Capsule 2 09/22/20 24 Active OneTouch Verio In Vitro Strip (Glucose Blood)Indications :Type 2 diabetes mellitus without complication, without long-term current use of insulin ([facility]) Use up to 4 times a day E11.9 400 Strip 1 09/22/20 24 Active Ondansetron 4 MG Oral Tablet Disintegrating (Zofran)Indicatio ns:Nausea Place 1 Tablet on tongue every 8 hours as needed for Nausea. dissolve on tongue. 20 Tablet 09/22/20 24 Active Atorvastatin Calcium 40 MG Oral Tablet (Lipitor)Indicati ons:Dyslipidemia, goal to be determined Take 1 Tablet by mouth in the morning. In the morning.. 90 Tablet 1 10/25/19 25 Active Omeprazole 20 MG Oral Capsule Delayed Release (PriLOSEC) Take 1 Capsule by mouth in the morning. 90 Capsule 1 10/25/19 25 Active Sildenafil Citrate 50 MG Oral Tablet Take 1-2 Tablets by mouth daily as needed for Erectile Dysfunction. 20 Tablet 6 11/12/19 25 Active Testosterone 50 MG/5GM (1%) Transdermal GelIndications:Hy pogonadism in male Apply 5 grams in the morning to the shoulders or upper arms. 300 g 5 11/17/19 25 Active HYDROcodone-Aceta minophen 5-325 MG Oral TabletIndications :Pain Take 1 Tablet by mouth 3 times a day as needed (for pain). 90 Tablet 12/01/19 25 Active HYDROcodone-Aceta minophen 5-325 MG Oral TabletIndications :Pain Take 1 Tablet by mouth 3 times a day as needed (for pain). 90 Tablet 10/27/19 25 025 Discontin ued(Refil l) documented as of this encounter (statuses as of 12/01/2024) Active Problems Problem Noted Date Diagnosed Date Moderate episode of recurrent major depressive d isorder 05/01/2024 Sacroiliitis, not elsewhere classified 3 Type 2 diabetes mellitus wit h diabetic polyneuropathy, without long-term current use of insulin 01/23/2023 Uncomplicated asthma 01/23/2023 Post-traumatic stress disorder, unspecified 06/23 Gastroesophageal reflux disease without esophagi tis 04/03/2020 Major depressive disorder, recurrent, unspecifie d 04/03/2020 Type 2 diabetes mellitus wit hout complication, without long-term current use of insulin 04/29/2019 Family history of malignant neoplasm of colon Overview (10/29/2018): brother Family history of malignant neoplasm of prostate 10/29/2018 Overview (10/29/2018): brother Controlled substance agreement signed 09/06/2017 Benign localized prostatic h yperplasia with lower urinary tract symptoms (LUTS) 01/23/2017 Dyslipidemia, goal LDL below 130 10/08/2012 Moderate obstructive sleep apnea 11/14/2011 Overview (03/29/2012): 03/29/12 -- change back to 5-15 CPAP 8-15 RDI 15.4 [facility] Patient Essential hypertension with goal blood pressure less than 140/90 06/11/2008 Insomnia 11/13/2006 Overview (07/23/2017): ICD-10 update of inactive term 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 06/20/2002 Erectile Dysfunction 08/12/1998 documented as of this encounter (statuses as of 12/01/2024) Resolved Problems Problem Noted Date Diagnosed Date Resolved Date Moderate episode of recurren t major depressive disorder 07/20/2022 08/21/2023 Diabetes mellitus 07/20/2022 10/18/2022 Hx of adenomatous colonic polyps 04/17/2019 03/25/2020 Overview (03/25/2020): Historical. Preoperative cardiovascular examination 10/08/2012 11/14/2012 Shortness of breath 04/29/2012 11/14/19 13 Other chest pain 04/29/2012 10/08/2012 Bacterial pneumonia 12/07/2011 11/14/19 13 Adenomatous polyp of colon 12/30/2010 0 04/17/2019 Acute bronchitis, complicated 10/18/2010 11/18/2010 Dyslipidemia, goal to be determined 10/07/2009 10/08/2012 Overview (10/07/2009): Per Lipid Taxonomy. Type 2 diabetes mellitus 02/27/200701/2020 Overview (03/25/2020): Duplicate. ADVANCE DIRECTIVE INFORMATION 11/13/2006 03/25/2020 Overview (03/25/2020): No, Advance Directive brochure offered , patient declined. Historical. Major depression, single episode 11/13/2006 03/02/2021 TESTICULAR HYPOFUNC NEC 05/15/200510/23 FAMILY HX-GI MALIGNANCY 04/21/2005 0601/2020 Overview (03/25/2020): Historical. ADHESIVE CAPSULIT SHLDER 10/12/1997 Back disorder 11/13/2006 PURE HYPERCHOLESTEROLEM 09/21 Overview (10/07/2009): Per Lipid Taxonomy. PULSATILE TINNITUS 0 Overview (03/25/2020): Acute. Adenomatous colon polyp 03/23 Overview (11/14/2012): 2mm sessile documented as of this encounter (statuses as of 12/01/2024) Immunizations Name Administration Dates Next Due COVID-19 mRNA, LNP-s, No Pre serve, 2-Dose Series (Optichron) 07/30/2021,02/09/2021,01/26/2021,01/10,12/20/2020 COVID-19, MRNA-LNP, 24-25, P R, 30MCG/0.3ML, IM, 12YRS AND ABOVE ([employer] Utility) 08/05/2024 COVID-19, MRNA-LNP, PF, 30 M CG/0.3 mL, 12 YRS AND ABOVE, IM ([employer]) 08/08/2023 Covid-19, Mrna, Lnp-s, Pf, B ivalent, 30 Mcg, IM, 12 yrs and above (Optichron) 01/19/2023 DTaP Dipth/Tet/Acell Pertussis (Infanrix), Peds 10/22/2006 Pneumococcal Conjugate Vacc, 13 Valent (Prevnar) 10/21/2015 Pneumococcal Polysaccharide PPV23 (Pneumovax) 07/13/2016 RSV Vac., Bivalent, Perfusio n F, Pf,0.5 Ml (Abrysvo) 08/23/2023 Season Influenza, Quad, PF, Adjuvanted, 65+ Yrs, IM (FLUAD) 07/04/2023,07/11/2022,06/22/2020 Seasonal Influenza Vac., MDV , IM, 0.5 mL (Fluzone) 07/06/2017,08/05/2014,07/22/2013,07/22 Seasonal Influenza Virus Vac cine, Unspecified Formulation 06/22/2021,06/22/2020,06/27/2019,06/27,07/06/2017,07/19/2015,08/05/2014 ,07/22/2013,07/22/2012,07/22/2011,07/22 Seasonal Influenza, High Dos e, Trivalent, PF, IM (Fluzone HD) 08/01/2024 Seasonal Influenza, PF, 6 M & above, IM , (FluLaval or Fluzone) 06/27/2018 Seasonal Influenza, Quadriva lent, No Preserve, IM 07/19/2015 Seasonal Influenza, Recombin ant, Trivalent, PF (Flublock) 07/31/2016 Seasonal Influenza, Trivalen t, (IIV3), PF, (Fluzone) 07/22/2011,07/31/2010 Seasonal Influenza, Trivalen t, Adjuvanted, 65+ YRS, PF, (Fluad) 06/20/2019,06/27/2018 TD, Preservative Free 07/13/2016 TDAP (age 10 and older)(Boostrix) 03/18/2024 TDAP, Age 7 and older, IM (Adacel) 10/22/2005 Varicella Zoster Vaccine (Adult) 10/26/2014 Zoster Vaccine Recombinant (Shingrix) 09/02/2020 ,09/02/2020,05/20/2020 documented as of this encounter Social History Tobacco Use Types Packs/Day Years Used Date Smoking Tobacco: Former Cigarettes 1 20 0 10/22/1966 - 10/22/1986 Smokeless Tobacco: Never Alcohol Use Standard Drinks/Week Comments Yes 0 (1 standard drink = 0.6 oz pur e alcohol) very rare social PHQ-2 Answer Date Recorded PHQ Adult Total Score 0 01/23/2023 Hunger Vital Sign Answer Date Recorded Within the past 12 months, y ou worried that your food would run out before you got the money to buy more. Patient declined Within the past 12 months, t he food you bought just didn't last and you didn't have money to get more. Patient declined 02/2024 Childcare Answer Date Recorded Do you feel overwhelmed with taking care of a child, family member or friend? No 03/26/2024 Does your family need help f inding childcare? (Household - for ages 0-17 years) Not on file 03/26/2024 Clothing Answer Date Recorded Have you been unable to get clothing when it was really needed? No 03/26/2024 Is your family able to get c lothes or diapers when needed? (Household - for ages 0-17 years) Not on file 03/26/2024 Personal Safety Answer Date Recorded Do you feel unsafe or have concerns for your saf ety? No 03/26/2024 Do you have concerns for you r family's safety? (Household - for ages 0-17 years) Not on file 03/26/2024 Utilities Answer Date Recorded Do you have trouble paying y our heating, water, or electric bill? No 03/26/2024 Is your family able to pay t he heat, water, or electric bill? (Household - for ages 0-17 years) Not on file 03/26/2024 Does your family have access to good internet? (Household - for ages 0-17 years) Not on file 03/26/2024 Employment Status Answer Date Recorded Are you unemployed or without regular income? No 03/26/2024 Does the household have a re gular source of income? (Household - for ages 0-17 years) Not on file 03/26/2024 Social Connections Answer Date Recorded How often do you feel lonely or isolated from th ose around you? Never 03/26/2024 Financial Resource Strain Answer Date R ecorded Do you have any trouble payi ng for your medications, or do you think you might in the future? No 03/26/2024 Does your family have troubl e paying for medicine? (Household - for ages 0-17 years) Not on file 03/26/2024 Transportation Needs Answer Date Record ed READ ONLY Do you have troubl e getting a ride to medical visits or work? Never True 03/26/2024 Does your family have a hard time getting a ride to doctors visits? (Household - for ages 0-17 years) Not on file 03/26/2024 Has lack of transportation k ept you from medical appointments, meetings, work, or from getting things needed for daily living? Check all that apply. (Adult - for ages 18 years and over) Not on file 03/26/2024 Do you (or your family) have trouble finding or paying for a ride (transportation)? (Household - for ages 0-17 years) Not on file 03/26/2024 Housing Stability Answer Date Recorded Do you currently live in a s helter or have no steady place to sleep at night? No 03/26/2024 READ ONLY Do you think you a re at risk of becoming homeless? No 03/26/2024 Does your family worry about paying for your home or becoming homeless? (Household - for ages 0-17 years) Not on file 0 03/26/2024 Are you homeless or worried that you might be in the future? (Adult - for ages 18 years and over) Not on file Are you (or your family) merrill eless or worried that you might be in the future? (Household - for ages 0-17 years) Not on file Food Insecurity Answer Date Recorded Do you need food for this week? No 03/26/2024 Are you able to get enough f ood for your family? (Household - for ages 0-17 years) Not on file 03/26/2024 Does your family need food t his week? (Household - for ages 0-17 years) Not on file 03/26/2024 Do you always have enough fo od for your family? (Household - for ages 0-17 years) Not on file 03/26/2024 Food Insecurity Answer Date Recorded Within the past 12 months, y ou worried that your food would run out before you got the money to buy more. Patient declined Within the past 12 months, t he food you bought just didn't last and you didn't have money to get more. Patient declined 02/2024 Do you need food for this week? 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 Authorizing Provider: JESSIE NG * Telephone Encounter - July Louis [facility] - 11/27/2024 12:20 PM EST Pending Prescriptions: Disp Refills HYDROcodone-Acetaminophen 5-325 MG Oral Ta*90 Tab*0 Sig: Take 1 Tablet by mouth 3 times a day as needed (for pain). * Telephone Encounter - July Louis [facility] - 11/27/2024 12:17 PM EST I have reviewed the patients controlled substance dispensing history in the Prescription Drug Monitoring Program in compliance with the [facility] regulations before prescribing a controlled substance. PDMP checked on 11/27/2024. Pending Prescriptions: Disp Refills HYDROcodone-Acetaminophen 5-325 MG Oral T*90 Tab*0 Sig: Take 1 Tablet by mouth 3 times a day as needed (for pain). Last Visit: 10/30/2024 (in office), Visit date not found (telemedicine) Next Visit: Visit date not found Date medication was last filled: 10/27/24 Date medication is due for refill: 11/25/24 Pharmacy: [id number] Is this request for a controlled substance? Yes and Urine Drug Screen Not completed Toxicology results: Results for orders placed or performed in visit on 07/11/22 PAIN MANAGEMENT DRUG PANEL, URINE W/ INTERPRETATION Result Value Pain Management Interpretation Based on the medication information provided: The presence of hydrocodone, dihydrocodeine and hydromorphone is CONSISTENT with hydrocodone use. Amphetamines Screen, U Negative Benzodiazepines Screen, U Negative Cannabinoids Screen, U Negative Cocaine Metabolite Screen, U Negative Fentanyl Screen, U Negative Hydrocodone Screen, U Refer to confirmation results (A) Methadone Metabolite Screen, U Negative Morphine/Codeine Screen, U Refer to confirmation results (A) Oxycodone Screen, U Refer to confirmation results (A) Specimen Validity Interpretation Normal Creatinine, U 109 Narrative Cutoff Concentrations: Drug Level Amphetamines 500 ng/mL Benzodiazepines 100 ng/mL Cannabinoids 50 ng/mL Cocaine Metabolite 150 ng/mL Fentanyl 1 ng/mL Hydrocodone / Hydromorphone 300 ng/mL Methadone Metabolite 100 ng/mL Morphine / Codeine 300 ng/mL Oxycodone / Oxymorphone 100 ng/mL Screening results are presumptive and can only be used for medical purposes. Confirmatory testing is available upon request. *Note: Due to a large number of results and/or encounters for the requested time period, some results have not been displayed. A complete set of results can be found in Results Review. Please approve if appropriate. Thank you, July Louis, PharmD Clinical Pharmacist [facility] ([facility] [phone] 11/27/2024, 12:20 PM documented in this encounter Plan of Treatment Upcoming Encounters Date Type Department Care Team (Late st Contact Info) Description 12/19/2024 10:30 AM EST Office Visit Orthopaedics Spine Surgery [facility] [address] [phone] Dinesh Reilly MD [address] [place] [address] 01/12/2025 10:15 AM EDT Office Visit Orthopaedics [facility] [address] [phone] Brandyn Yadav PA-C [address] [place] [phone] 04/10/2025 1:00 PM EDT Office Visit Orthopaedics Spine Surgery [facility] [address] [place] [phone] Dinesh Reilly MD [address] [place] [address] 05/26/2025 2:45 PM EDT Office Visit Urology, [facility] [address] [place] [address] Man Odonnell MD [address] [place] [place] [address] Scheduled Procedures Name Priority Associated Diagnoses Date/Ti me COLONOSCOPY FLEXIBLE PROXIMA L DIAGNOSTIC Recall Family history of colon cancer Health Maintenance Due Date Last Done Comments Cologuard 1994 Sigmoidoscopy 1994 Adult Wellness Visit 2015 Fecal Occult Blood Test 10/23/2019 10/23/2018, 08/17 Depression Monitoring 01/24/2024 01/23/2023 COVID-19 Vaccine ( season) 2024 08/05/2024, 08/08/2023, 01/19/2023, Additional history exists Diabetic Foot Exam 12/24/2024 12/25/2023, 0 01/23/2023, 03/09/2022, Additional history exists Diabetic Eye Exam 12/30/2024 12/31/2023, , 05/07/2023, Additional history exists HbA1c 03/17/2025 09/17/2024, 04/21, 08/21/2023, Additional history exists Albumin/Creatinine Ratio 09/17/202509/17/2 024, 05/01/2024, 08/21/2023, Additional history exists B-12 09/17/2025 09/17/2024, 07/24, 01/23/2023, Additional history exists GFR 09/17/2025 09/17/2024, 04/21, 08/21/2023, Additional history exists Colonoscopy 05/10/2026 05/10/2021, 04/22, 03/01/2016, Additional history exists Colorectal Cancer Screening 05/10/2026 Lipid Panel 09/17/2029 09/17/2024, 04/21, 08/21/2023, Additional history exists DTap/Tdap Vaccines (5 - Td or Tdap) 03/18/2034 03/18/2024, 07/13/2016, 10/22/2006, Additional history exists AAA Screening Completed 02/09/2016, 01/12/2009 Pneumococcal Vaccine: 50+ Years Completed 07/13/2016, 10/21/2015 Zoster Vaccines Completed 09/02/2020, 08/22, 05/20/2020, Additional history exists RETIRED - COLONOSCOPY-EVERY 5 YRS AGES 18-100 Discontinued 05/10/2021, 05/10/2021, 03/01/2016, Additional history exists Influenza Vaccine (FLU shot) Completed 08/01/2024, 08/01/2024, 07/04/2023, Additional history exists HPV (Gardasil) Vaccine Aged Out No lo nger eligible based on patient's age to complete this topic Hepatitis B Vaccine Aged Out No longe r eligible based on patient's age to complete this topic MENINGOCOCCAL (MENACTRA/MENVEO) Aged Out No longer eligible based on patient's age to complete this topic documented as of this encounter Medical Devices Not on filedocumented as of this encounter Visit Diagnoses Diagnosis Pain Generalized pain documented in this encounter Care Teams Mason Apprentice Relationship Specialty Start Date End Date Jessie Ng DO [address] [facility] [place] [address] PCP - General Family Medicine 11/20/19 documented as of this encounter
--- OUTSIDE RECORDS SUMMARY | 2024-12-03 04:48 | External Medical Summary | Summary of Care ---
Author Name Unknown Organization [facility] Address [address] [place] [address] Phone [phone] Care Team Providers Care Rural Route Mail Carrier Name Role Phone Arthur Ng Primary Care Provider Reason for Referral * Evaluate & Treat - Unlimited Visits (Within 30 days (routine)) - Authorized Specialty Diagnoses / Procedures Referred By Francisco Javier villarreal Referred To Contact Neuro/Ortho Surgery - Spine. / Neurological Surgery Diagnoses Degeneration of intervertebral disc of lumbar region with discogenic back pain Brandyn Yadav PA-C [address] [place] [phone] Phone: tel: fax: Referral ID Status Reason Start Date Expiration Date Visits Requested Visits Authorized [id number] Authorized Specialty Services Required 12/01/2024 [id number] Question Answer Referral Priority Within 30 days (routine) Where should this appointment be scheduled? [facility] spine region: Back - Thoracic/Lumbar Do you have any recent complete loss of bladder or bowel function? No * Evaluate & Treat - Unlimited Visits (Within 10 days (routine)) - Authorized Specialty Diagnoses / Procedures Referred By Francisco Javier villarreal Referred To Contact Physical Therapy / Physical Medicine And Rehab Diagnoses Right patellofemoral syndrome Degeneration of intervertebral disc of lumbar region with discogenic back pain Brandyn Yadav PA-C [address] [place] [phone] Phone: tel: fax: Referral ID Status Reason Start Date Expiration Date Visits Requested Visits Authorized [id number] Authorized Specialty Services Required 12/01/2024 [id number] Question Answer Referral Priority Within 10 days (routine) Where should this appointment be scheduled? [facility] Reason for Visit * Reason Comments NEW PATIENT New pt presents for R knee pain * Evaluate & Treat - Unlimited Visits (Within 10 days (routine)) - Authorized Specialty Diagnoses / Procedures Referred By Contjoni t Referred To Contact Orthopaedic Surgery / Orthopedics Diagnoses Plica syndrome of knee, right Cipriano, Ralph Khan MD [address] [place] [address] [place] [address] Phone: tel: fax: Referral ID Status Reason Start Date Expiration Date Visits Requested Visits Authorized [id number] Authorized Specialty Services Required 10/30/2024 [id number] Encounter Details Date Type Department Care Team (Latest Contact Info) Description 12/01/2024 9:30 AM EST Office Visit Orthopaedics [facility] [address] [place] [phone] Brandyn Yadav PA-C [address] [place] [phone] Right patellofemoral syndrome*; Patellofemoral arthritis of right knee Allergies Active Allergy Reactions Criticality Noted Date Comments Amoxicillin-Pot Clavulanate Diarrhea Low 06/18/20 14 Metaxalone 06/18/1998 Skelexin-numbness and tingling, itching Percodan 10/12/1997 GI upset Sulfa Antibiotics 10/28/2002 rash documented as of this encounter (statuses as of 12/01/2024) Medications aspirin enteric coated 81 MG TBEC Take 1 Tablet by mouth in the morning. 05/07/20 17 Active Blood Glucose Monitoring Suppl (ONETOUCH VERIO) w/Device KITIndications:Ty pe 2 diabetes mellitus without complication, without long-term current use of insulin (HCC) Use up to 4 times a day E11.9 1 Kit 05/20/20 20 Active OneTouch UltraSoft Lancets MISCIndications:T ype 2 diabetes mellitus without complication, without long-term current use of insulin (HCC) Use as directed 4 times a day [...] without long-term current use of insulin (HCC) Take 1 Tablet by mouth 2 times [...] Active Ondansetron 4 MG Oral Tablet Disintegrating (Zofran)Cosmetio ns:Nausea Place 1 Tablet on tongue every 8 hours as needed for Nausea. dissolve on tongue. 20 Tablet 09/22/20 24 Active Atorvastatin Calcium 40 MG Oral Tablet (Lipitor)Indicati ons:Dyslipidemia, goal to be determined Take 1 Tablet by mouth in the morning. In the morning.. 90 Tablet 1 01/04/20 25 Active Omeprazole 20 MG Oral Capsule [...] back to 5-15 CPAP 8-15 RDI 15.4 [facility] Essential hypertension with goal blood [...] mRNA, LNP-s, No Pre serve, 2-Dose Series (L8 SmartLight) 07/30/2021,02/09/2021,01/26/2021,01/10,12/20/2020 COVID-19, MRNA-LNP, 24-25, P R, 30MCG/0.3ML, IM, 12YRS AND ABOVE (Telerik) 08/05/2024 COVID-19, MRNA-LNP, PF, 30 M CG/0.3 mL, 12 YRS AND ABOVE, IM (Hilosoft) 08/08/2023 Covid-19, Mrna, Lnp-s, Pf, B ivalent, 30 Mcg, IM, 12 yrs and above (L8 SmartLight) 01/19/2023 DTaP Dipth/Tet/Acell Pertussis (Infanrix), Peds 10/22/2006 [...] on file documented as of this encounter Progress Notes * Brandyn Yadav PA-C - 12/01/2024 10:16 AM EST Subjective Jean Gates is a 73 year old male. Chief Complaint Patient presents with NEW PATIENT New pt presents for R knee pain HPI: New patient presents with several months of right knee pain. He points towards the anterior knee approximate patellar tendon and distal quad tendon. States that he had 3 previous knee arthroscopies by [facility] for debridement as well as plica excision. Denies any mechanical symptoms. Denies any swelling or redness. No calf pain. No numbness or tingling distally. X-rays will need to be updated. PMH: Patient Active Problem List Diagnosis Erectile Dysfunction Displacement of lumbar intervertebral disc without myelopathy TESTICULAR HYPOFUNC NEC Insomnia Essential hypertension with goal blood pressure less than 140/90 Moderate obstructive sleep apnea Dyslipidemia, goal LDL below 130 Benign localized prostatic hyperplasia with lower urinary tract symptoms (LUTS) Controlled substance agreement signed Family history of malignant neoplasm of colon Family history of malignant neoplasm of prostate Type 2 diabetes mellitus without complication, without long-term current use of insulin ([facility]) Gastroesophageal reflux disease without esophagitis Major depressive disorder, recurrent, unspecified ([facility]) Post-traumatic stress disorder, unspecified Sacroiliitis, not elsewhere classified ([facility]) Type 2 diabetes mellitus with diabetic polyneuropathy, without long-term current use of insulin ([facility]) Uncomplicated asthma Moderate episode of recurrent major depressive disorder ([facility]) Current Outpatient Medications Medication Sig Dispense Refill aspirin enteric coated 81 MG TBEC Take 1 Tablet by mouth in the morning. Blood Glucose Monitoring Suppl ([employer] VERIO) w/Device KIT Use up to 4 times a day E11.9 1 Kit 0 HackerRankTouch UltraSoft Lancets [facility] Use as directed 4 times a day as needed for Hyperglycemia (high sugar). Use up to four times a day as directed 100 Each 11 Multi-Vitamin Oral Tablet Take 1 Tablet by mouth in the morning. 90 Tablet 3 Betamethasone Dipropionate Aug 0.05 % External Ointment (Diprolene) Apply to affected area twice a day, do not use for more than 2 weeks at a time 50 g 3 metFORMIN HCl ER 500 MG Oral Tablet Extended Release 24 Hour (Glucophage XR) Take 1 Tablet by mouth2 times a day with morning and evening meals. 180 Tablet 3 Sertraline HCl 100 MG Oral Tablet (Zoloft) Take 1 Tablet by mouth in the morning. 90 Tablet 3 Tamsulosin HCl 0.4 MG Oral Capsule (Flomax) Take 1 Capsule by mouth in the morning. 30 Capsule 2 OneTouch Verio In Vitro Strip (Glucose Blood) Use up to 4 times a day E11.9 400 Strip 1 Ondansetron 4 MG Oral Tablet Disintegrating (Zofran) Place 1 Tablet on tongue every 8 hours as needed for Nausea. dissolve on tongue. 20 Tablet 0 Atorvastatin Calcium 40 MG Oral Tablet (Lipitor) Take 1 Tablet by mouth in the morning. In the morning.. 90 Tablet 1 Omeprazole 20 MG Oral Capsule Delayed Release (PriLOSEC) Take 1 Capsule by mouth in the morning. 90Capsule 1 HYDROcodone-Acetaminophen 5-325 MG Oral Tablet Take 1 Tablet by mouth 3 times a day as needed (for pain). 90 Tablet 0 Sildenafil Citrate 50 MG Oral Tablet Take 1-2 Tablets by mouth daily as needed for Erectile Dysfunction. 20 Tablet 6 Testosterone 50 MG/5GM (1%) Transdermal Gel Apply 5 grams in the morning to the shoulders or upper arms. 300 g 5 No current facility-administered medications for this visit. Past Medical History: Diagnosis Date Adenomatous colon polyp 12/2010 2mm sessile Adenomatous polyp of colon 12/30/2010 Bacterial pneumonia 12/07/2011 Benign neoplasm of colon 01/18/2011 one polyp, path shows adenomatous tissuerepeat in 5 years Benign prostatic hypertrophy with lower urinary tract symptoms (LUTS) 01/23/2017 Calculus of ureter 08/12/1998 Dyslipidemia, goal to be determined Erectile Dysfunction 08/12/1998 Essential and other specified forms of tremor Family history of malignant neoplasm of colon 10/29/2018 Family history of malignant neoplasm of prostate 10/29/2018 FAMILY HX-GI MALIGNANCY 04/21/2005 Herpes zoster 06/13/2009 HTN, goal below 140/90 06/11/2008 Insomnia, unspecified 11/13/2006 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 OS LUMBAR DISC DISPLACEMENT 06/20/2002 RENETTA DEPRESS DISOR SGL EPIS UNSP 11/13/2006 Major depressive disorder, single episode, severe (HCC) with PTSD Obstructive sleep apnea on CPAP JERMAINE (obstructive sleep apnea) 11/14/2011 Other chest pain 04/29/2012 Plica syndrome of knee, right 1969 Pulsatile tinnitus PVD (posterior vitreous detachment), both eyes 07/2012 OU Retinal tear 08/23/2012 OS-treatment Laser Retinopexy, Dr. Brown Shortness of breath 04/29/2012 TESTICULAR HYPOFUNC NEC 05/10/2005 Type 2 diabetes mellitus (HCC) 02/27/2007 Vitreous hemorrhage (HCC) 09/29/2012 left eye Past Surgical History: Procedure Laterality Date COLONOSCOPY W/ BIOPSY (RECTUM) 01/18/2011 one polyp, path shows adenomatous tissuerepeat in 5 years COLONOSCOPY, DIAGNOSTIC (RECTUM) 03/01/2016 diverticulosis, repeat 5 yrs/COLONOSCOPY FLEXIBLE PROXIMAL DIAGNOSTIC performed by Teena Keith MD at [facility] COLONOSCOPY, DIAGNOSTIC (RECTUM) 05/10/2021 Family hx colon cancer, diverticulosis, 5y recall/ COLONOSCOPY FLEXIBLE PROXIMAL DIAGNOSTIC performed by Teena Keith MD at [facility] DESTROY LUMBAR SACRAL NERVE IMAGING SINGLE 12/30/2018 DESTROY LUMBAR SACRAL NERVE IMAGING SINGLE performed by Johnathan Darby, DO at OR [facility] DESTROY LUMBAR SACRAL NERVE IMAGING SINGLE 02/17/2019 DESTROY LUMBAR SACRAL NERVE IMAGING SINGLE performed by Johnathan Darby, at OR [facility] EMG, 1 EXTREMITY 05/31/2000 Left Leg. Positive for chronic L3-L4 radiculopathy. INJECT DX/THER SUBSTANCE INTERLAMINAR LUMBAR/SACRAL W IMAGE GUIDE 07/22/2018 INJECTION SPINE LUMBAR OR SACRAL performed by Johnathan Darby, at OR [facility] INJECT DX/THER SUBSTANCE INTERLAMINAR LUMBAR/SACRAL W IMAGE GUIDE 07/18/2023 INJECTION SPINE LUMBAR OR SACRAL performed by Johnathan Darby, at OR [facility] KNEE ARTHROSCOPY, DIAGNOSTIC X2 KNEE ARTHROSCOPY/SURGERY L-/S-SPINE PARAVERTEBRAL FACET INJ,1 LEVEL 09/19/2018 L-/S-SPINE PARAVERTEBRAL FACET INJ, 1 LEVEL performed by Johnathan Darby, DO at OR [facility] L-/S-SPINE PARAVERTEBRAL FACET INJ,1 LEVEL Bilateral 10/17/2018 L-/S-SPINE PARAVERTEBRAL FACET INJ, 1 LEVEL performed by Johnathan Darby, DO at OR [facility] L-/S-SPINE PARAVERTEBRAL FACET INJ,1 LEVEL 07/21/2019 L-/S-SPINE PARAVERTEBRAL FACET INJ, 1 LEVEL performed by Johnathan Darby, DO at OR [facility] L-/S-SPINE PARAVERTEBRAL FACET INJ,1 LEVEL 09/04/2019 L-/S-SPINE PARAVERTEBRAL FACET INJ, 1 LEVEL performed by Johnathan Darby, DO at OR [facility] L-/S-SPINE PARAVERTEBRAL FACET INJ,1 LEVEL 03/11/2020 L-/S-SPINE PARAVERTEBRAL FACET INJ, 1 LEVEL performed by Johnathan Darby, DO at OR [facility] L-/S-SPINE PARAVERTEBRAL FACET INJ,1 LEVEL 06/24/2020 L-/S-SPINE PARAVERTEBRAL FACET INJ, 1 LEVEL performed by Johnathan Darby, DO at OR [facility] L-/S-SPINE PARAVERTEBRL FACET INJ,2 LEVELS 06/24/2020 L-/S-SPINE PARAVERTEBRAL FACET INJ, 2 LEVELS performed by Johnathan Darby, DO at OR [facility] LASER TRABECULOPLASTY 08/23/2012 Laser procedure of the LEFT eye; Dr. Brown LUMBAR / SACRAL EPIDURAL, SINGLE LEVEL 06/12/2016 INJECTION TRANSFORAMINAL EPIDURAL LUMBAR OR SACRAL performed by Johnathan Safia Darby, DO at OR [facility] LUMBAR / SACRAL EPIDURAL, SINGLE LEVEL 04/11/2018 INJECTION TRANSFORAMINAL EPIDURAL LUMBAR OR SACRAL performed by Johnathan Safia Darby, DO at OR [facility] LUMBAR / SACRAL EPIDURAL, SINGLE LEVEL 05/16/2018 INJECTION TRANSFORAMINAL EPIDURAL LUMBAR OR SACRAL performed by Johnathan Safia Darby, DO at OR [facility] MISCELLANEOUS ORDER ([facility] ONLY) Bilateral adhesive capsulitis reversal under anethesia MISCELLANEOUS ORDER ([facility] ONLY) Right flank lipoma removed MRI BRAIN W WO CONTRAST 10/17/2024 No acute intracranial abnormality. Advanced chronic small vessel ischemic gliosis. PARTIAL REMOVAL OF EYE FLUID 23G PPV for non-clearing VH OS; Dr. Brown REMOVAL OF APPENDIX 1961 SACROILIAC JOINT INJECT W/GUIDANCE 09/13/2020 INJECTION SACROILIAC JOINT performed by Johnathan Darby, DO at [facility] SACROILIAC JOINT INJECT W/GUIDANCE 01/09/2022 INJECTION SACROILIAC JOINT performed by Johnathan Darby, DO at OR [facility] SACROILIAC JOINT INJECT W/GUIDANCE 08/16/2022 INJECTION SACROILIAC JOINT performed by Johnathan Darby, DO at OR [facility] Review of patient's allergies indicates: Allergen Reactions Metaxalone Skelexin-numbness and tingling, itching Percodan GI upset Sulfa Antibiotics rash Amoxicillin-Pot Clavulanate Diarrhea Family History Problem Relation Name Age of Onset Cancer Father lung Cancer Brother colon Heart Disorder Mother [place] late 70's Thyroid Disorder Mother Graves Diabetes Brother 1/2 brother same mother Eye Problems Sister Multiple Sclerosis Sister Eye Problems Brother Prostate cancer Brother Other (skin disorders) Other denies melanoma or other skin disorders Allergies Son No Past Hx Daughter Eye Problems None Denies family hx of retinal problems Glaucoma None Family Status Relation Status Fa (Not Specified) Bro (Not Specified) Mo (Not Specified) Bro (Not Specified) Sis (Not Specified) Bro (Not Specified) Other (Not Specified) Son (Not Specified) Clemente (Not Specified) NONE (Not Specified) NONE (Not Specified) Social History Socioeconomic History Marital status: Spouse name: Not on file Number of children: Not on file Years of education: Not on file Highest education level: Not on file Occupational History 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 Social Needs Financial Resource Strain: Low Risk (03/26/2024) Financial Resource Strain Do you have any trouble paying for your medications, or do you think you might in the future? (Adult - for ages 18 years and over): No Does your family have trouble paying for medicine? (Household - for ages 0-17 years): Not on file Food Insecurity: Unknown (03/26/2024) Food Insecurity Worried About Running Out of Food in the Last Year: Patient declined Ran Out of Food in the Last Year: Patient declined Do you need food for this week? (Adult - for ages 18 years and over): No Transportation Needs: No Transportation Needs (03/26/2024) Transportation Needs Do you have trouble getting a ride to medical visits or work? (Adult - for ages 18 years and over):Never True Does your family have a hard time getting a ride to doctors visits? (Household - for ages 0-17 years): Not on file Has lack of transportation kept you from medical appointments, meetings, work, or from getting things needed for daily living? Check all that apply. (Adult - for ages 18 years and over): Not on file Do you (or your family) have trouble finding or paying for a ride (transportation)? (Household - for ages 0-17 years): Not on file Social Connections: Socially Integrated (03/26/2024) Social Connections How often do you feel lonely or isolated from those around you? (Adult - for ages 18 years and over): Never Housing Stability: Low Risk (03/26/2024) Housing Stability Do you currently live in a mcc or have no steady place to sleep at night? (Adult - for ages 18 years and over): No Do you think you are at risk of becoming homeless? (Adult - for ages 18 years and over): No Does your family worry about paying for your home or becoming homeless? (Household - for ages 0-17 years): Not on file Are you homeless or worried that you might be in the future? (Adult - for ages 18 years and over): Not on file Are you (or your family) homeless or worried that you might be in the future? (Household - for ages0-17 years): Not on file Objective There were no vitals taken for this visit. complete review of systems negative General: alert and oriented x3 male, no acute distress, appears currently stated age, pleasant, well nourished Skin: Right knee does not reveal any erythema, effusion, ecchymosis, abrasion, laceration, skin breakdown otherwise Neurovascular: Right lower extremity is neurovascularly intact with good sensation strength throughout, calf supple nontender, toes were mobile, +5 strength dorsi and plantar flexion of the foot Musculoskeletal: Right knee ROM 0-125, minimal jointline tenderness, noted crepitation noted in PFJ, femoral condyles and tibial plateau on our overly tender. Negative Shannon's. There is not a notable amount of discomfort in the patellofemoral joint with resisted knee extension or maintaining quad function and straight leg raise. Ligamentously stable regarding cruciate and collateral ligaments.Extensor mechanism intact. No obvious cystic change or masses the popliteal fossa. Pes anserine bursa and patellar tendon nontender. Hip and ankle atraumatic X-rays of the right knee four views reveals fairly well-preserved mediolateral joint spaces there is notable degeneration patellofemoral joints with lateral patellar tilt joint space narrowing and sclerotic bone change. Correlates clinically. There is no evidence of loose bodies. Plain film radiographs do not reveal any type of advanced degeneration such as osteoarthritis. No acute findings such as fracture dislocation or subluxation. Unable to identify any type of obvious cystic changes or masses in the bone. Official radiology report to follow accordingly and we listed in the patient's chart under imaging. Personal interpretation and documentation regarding today's plain film radiographs performed by myself. ASSESSMENT/PLAN: Right patellofemoral syndrome (Primary) - PHYSICAL THERAPY REFERRAL OP Patellofemoral arthritis of right knee Other orders - XR KNEE 4 OR MORE VIEWS - SPINE SURGERY REFERRAL OP Check-out note: Physical therapy order and a 6 week follow up with myself 6 week New consultation with Teresa or Dr. Reilly, thank you Impression: Right knee pain secondary to patellofemoral syndrome with underlying patellofemoral osteoarthritis Plan: Today 's findings were discussed with the patient. They were educated regarding their diagnosis. The patient is requesting appointment with our spine team regarding his low back. States that hehas a history of degenerative disc disease treated elsewhere. Has not done a lot of physical therapy over the last several years. He has received pain injections from pain management, I believe outside facility. I can facilitate assisting with getting the patient is set up with our spine team. Advised that he should utilize minimum of 6 weeks of physical therapy before seeing the spine team and determine at that time of his consultation if referral to pain management warranted. The patient willfollow up with myself in 6 weeks for his right knee pain. Minimal relief and we would likely pursueinjection options for his patellofemoral arthritis. The patient is in agreement. The patient has noother questions or concerns. Pleased with today 's care. Call sooner if needed. This chart was completed in part utilizing [employer] Speech Voice Recognition Software. Grammatical errors, random word insertions, prounoun errors, and incomplete sentences are an occasional consequence of this system due to software limitations, ambient noise, and hardware issues. Any formal questions or concerns about the content, text, or information contained within the body of this dictation should be directly addressed to the provider for clarification. Brandyn Yadav PA-C documented in this encounter Nursing Notes * Loan Kumar CMA - 12/01/2024 9:36 AM EST New pt presents for R knee pain Pt states pain 5/10 today in R knee Pt states most of the pain comes at night Pt had fall many years ago from a 12 ft in the air, fell right onto R knee R knee has had 3 surgeries (every 6-8 years) Plica syndrome - Loan MONET documented in this encounter Miscellaneous Notes * Addendum Note - Keysha Londono MED ASSIST - 12/01/2024 3:03 PM EST Addended by: KEYSHA LONDONO on: 12/01/2024 03:03 PM Modules accepted: Orders documented in this encounter Plan of Treatment Upcoming Encounters Date Type Department Care Team (Late st Contact Info) Description 12/19/2024 10:30 AM EST Office Visit Orthopaedics Spine Surgery [facility] [address] [place] [phone] Dinesh Reilly MD [address] [place] [address] 01/12/2025 10:15 AM EDT Office Visit Orthopaedics [facility] [address] [place] [phone] Brandyn Yadav PA-C [address] [place] [phone] 04/10/2025 1:00 PM EDT Office Visit Orthopaedics Spine Surgery [facility] [address] [place] [phone] Dinesh Reilly MD [address] [place] [address] 05/26/2025 2:45 PM EDT Office Visit Urology, [facility] [address] [place] [address] Man Odonnell MD [address] [place] [address] Scheduled Procedures Name Priority Associated Diagnoses Date/Ti me COLONOSCOPY FLEXIBLE PROXIMA L DIAGNOSTIC Recall Family history of colon cancer Scheduled Referrals Name Type Priority Associated Diagnoses Orde r Schedule PHYSICAL THERAPY REFERRAL OP Referral Within 10 days (routine) Right patellofemoral syndrome Ordered: 12/01/2024 SPINE SURGERY REFERRAL OP Referral Within 30 days (routine) Ordered: 12/01/2024 Health Maintenance Due Date Last Done Comments [...] 04/21, 08/21/2023, Additional history exists Albumin/Creatinine Ratio 09/17/2025 024, 05/01/2024, 08/21/2023, Additional history exists B-12 [...] Not on filedocumented as of this encounter Procedures Procedure Name Priority Date/Time Associated Diagnosis Comments XR KNEE 4 OR MORE VIEWS Routine 12/01/2024 9:59 AM EST documented in this encounter Results * XR KNEE 4 OR MORE VIEWS (12/01/2024 9:59 AM EST) Anatomical Region Laterality Modality Knee, Lower Extremity Digital Ra diography 12/01/2024 9:38 PM EST Impressions 12/01/2024 9:36 PM EST IMPRESSION Left greater than right lateral patellar tilt with mild patellofemoral arthrosis bilaterally. Narrative 12/01/2024 9:36 PM EST EXAM Bilateral knees -12/01/2024 9:59 am HISTORY Pain COMPARISON No Comparison. TECHNIQUE Three views of right knee, skyline view of bilateral knees FINDINGS Moderate lateral patellar tilt, left greater than right with mild bilateral patellofemoral arthrosis. Right femorotibial joint spaces relatively preserved. Trace right suprapatellar joint effusion. Vascular calcifications. Bone island at the supracondylar distal right femur measuring about 1.2 by 0.4 cm. Procedure Note Raymond Burch MD - 12/01/2024 EXAM Bilateral knees -12/01/2024 9:59 am HISTORY Pain COMPARISON No Comparison. TECHNIQUE Three views of right knee, skyline view of bilateral knees FINDINGS Moderate lateral patellar tilt, left greater than right with mildbilateral patellofemoral arthrosis. Right femorotibial joint spaces relatively preserved. Trace right suprapatellar joint effusion. Vascular calcifications. [place] at the supracondylar distal right femur measuring about 1.2 by 0.4cm. IMPRESSION IMPRESSION Left greater than right lateral patellar tilt with mild patellofemoralarthrosis bilaterally. us Brandyn Yadav PA-C RADIOLOGY ([employer] [facility]) Final Result documented in this encounter Visit Diagnoses Diagnosis Right patellofemoral syndrome- Primary Pain in joint, lower leg Patellofemoral arthritis of right knee documented in this encounter Care Teams Rural Route Mail Carrier Relationship Specialty Start Date End Date Arthur Ng DO [address] [place] [address] PCP - General Family Medicine 11/20/19 documented as of this encounter
--- OUTSIDE RECORDS SUMMARY | 2024-12-03 04:48 | External Medical Summary | Summary of Care ---
Author Name Unknown Organization [facility] Address [address] [address] Phone [phone] Care Team Providers Care Vanstone Machine Operator Name Role Phone Jessie Ng DO Primary Care Provider Reason for Visit * Reason Onset Date Comments Medication Refill 11/14/2024 Encounter Details Date Type Department Care Team (Late st Contact Info) Description 11/14/2024 Refill Family Practice [facility] [address] [place] [address] Jessie Ng DO [address] [place] [address] Hypogonadism in male Allergies Active Allergy Reactions Criticality Noted Date Comments Amoxicillin-Pot Clavulanate Diarrhea Low 06/18/20 14 Metaxalone 06/18/1998 Skelexin-numbness and tingling, itching Percodan 10/12/1997 GI upset Sulfa Antibiotics 10/28/2002 rash documented as of this encounter (statuses as of 11/17/2024) Medications aspirin enteric coated 81 MG TBEC Take 1 Tablet by mouth in the morning. 05/07/20 17 Active Blood Glucose Monitoring Suppl ([employer] VERIO) w/Device KITIndications:Ty pe 2 diabetes mellitus without complication, without long-term current use of insulin ([facility]) Use up to 4 times a [...] morning. 90 Capsule 1 10/25/19 25 Active HYDROcodone-Aceta minophen 5-325 MG Oral TabletIndications :Pain Take 1 Tablet by mouth 3 times a day as needed (for pain). 90 Tablet 10/27/19 25 Active Sildenafil Citrate 50 MG Oral Tablet Take 1-2 Tablets by mouth daily as needed for Erectile Dysfunction. 20 Tablet 6 11/12/19 25 Active Testosterone 50 MG/5GM (1%) Transdermal GelIndications:Hy pogonadism in male Apply 5 grams in the morning to the shoulders or upper arms. 300 g 5 11/17/19 25 Active Testosterone 50 MG/5GM (1%) Transdermal GelIndications:Hy pogonadism in male Apply 5 grams in the morning to the shoulders or upper arms. 300 g 5 06/16/20 24 025 Discontin ued(Refil l) documented as of this encounter (statuses as of 11/17/2024) Active Problems Problem Noted Date Diagnosed Date [...] back to 5-15 CPAP 8-15 RDI 15.4 [place] Home Patient Essential hypertension with goal blood pressure less than 140/90 06/11/2008 Insomnia 11/13/2006 Overview (07/23/2017): ICD-10 update of inactive term 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 06/20/2002 Erectile Dysfunction 08/12/1998 documented as of this encounter (statuses as of 11/17/2024) Resolved Problems Problem Noted Date Diagnosed Date [...] TESTICULAR HYPOFUNC NEC 05/15/200510/23 FAMILY HX-GI MALIGNANCY 04/21/200501/2020 Overview (03/25/2020): Historical. ADHESIVE CAPSULIT SHLDER 10/12/1997 Back disorder 11/13/2006 PURE HYPERCHOLESTEROLEM 09/21 Overview (10/07/2009): Per Lipid Taxonomy. PULSATILE TINNITUS 0 Overview (03/25/2020): Acute. Adenomatous colon polyp 03/23 Overview (11/14/2012): 2mm sessile documented as of this encounter (statuses as of 11/17/2024) Immunizations Name Administration Dates Next Due COVID-19 mRNA, LNP-s, No Pre serve, 2-Dose Series ([employer]) 07/30/2021,02/09/2021,01/26/2021,01/10,12/20/2020 COVID-19, MRNA-LNP, 24-25, P R, 30MCG/0.3ML, IM, 12YRS AND ABOVE ([employer]) 08/05/2024 COVID-19, MRNA-LNP, PF, 30 M CG/0.3 mL, 12 YRS AND ABOVE, IM ([employer]) 08/08/2023 Covid-19, Mrna, Lnp-s, Pf, B ivalent, 30 Mcg, IM, 12 yrs and above ([employer]) 01/19/2023 DTaP Dipth/Tet/Acell Pertussis (Infanrix), Peds 10/22/2006 [...] ages 0-17 years) Not on file 03/26/2024 Sex and Gender Information Value Date [...] Telephone Encounter - Jessie Ng DO - 11/17/2024 12:05 PM EST Signed Prescriptions: Disp Refills Testosterone 50 MG/5GM (1%) Transdermal [id number] g 5 Sig: Apply 5 grams in the morning to the shoulders or upper arms. Authorizing Provider: JESSIE NG * Telephone Encounter - Fabi Raymond [facility] - 11/14/2024 1:24 PM EST Pending Prescriptions: Disp Refills Testosterone 50 MG/5GM (1%) Transdermal [id number] g 5 Sig: Apply 5 grams in the morning to the shoulders or upper arms. * Telephone Encounter - Fabi Raymond, [facility] - 11/14/2024 1:23 PM EST I have reviewed the patients controlled substance dispensing history in the Prescription Drug Monitoring Program in compliance with the [facility] regulations before prescribing a controlled substance. PDMP checked on 11/14/2024. Pending Prescriptions: Disp Refills Testosterone 50 MG/5GM (1%) Transdermal G*300 g 5 Sig: Apply 5 grams in the morning to the shoulders or upper arms. Last Visit: 10/30/2024 (in office), Visit date not found (telemedicine) Next Visit: Visit date not found Date medication was last filled: 06/17/24 Date medication is due for refill: 08/15/24 Pharmacy: [id number] Is this request for a controlled substance? Yes and Urine Drug Screen Not completed Toxicology results: Results for orders placed or performed in visit on 07/11/22 PAIN MANAGEMENT DRUG PANEL, URINE W/ INTERPRETATION Result Value Compliance Interpretation Based on the medication information provided: [...] Screen, U Refer to confirmation results (A) Valid Interpretation Normal Creatinine, U 109 Narrative Cutoff [...] in Results Review. Please approve if appropriate. Fabi Stevens [facility] Clinical Pharmacist [facility] ([facility]) [phone] documented in this encounter Plan of Treatment Upcoming Encounters Date Type Department Care Team (Late st Contact Info) Description 11/19/2024 11:30 AM EST Office Visit Orthopaedics [facility] [address] [place] [phone] Brandyn Yadav PA-C [address] [place] [phone] 04/10/2025 1:00 PM EDT Office Visit Orthopaedics Spine Surgery [facility] [address] [facility] [place] [phone] Dinesh Reilly MD [address] [place] [address] 05/26/2025 2:45 PM EDT Office Visit Urology, [facility] [address] [facility] [place] [address] Man Odonnell MD [address] [place] [...] as of this encounter Visit Diagnoses Diagnosis Hypogonadism in male documented in this encounter Care Teams Vanstone Machine Operator Relationship Specialty Start Date End Date Jessie Ng DO [address] [place] [address] PCP - General Family Medicine 11/20/19 documented as of this encounter
--- OUTSIDE RECORDS SUMMARY | 2024-12-03 04:48 | External Medical Summary | Summary of Care ---
Author Name Unknown Organization [facility] Address [address] [place] [address] Phone [phone] Care Team Providers Care Automation And Control Engineer Name Role Phone Arthur Ng Primary Care Provider Reason for Referral * Evaluate & Treat - Unlimited Visits (Within 30 days (routine)) - Authorized Specialty Diagnoses / Procedures Referred By Francisco Javier villarreal Referred To Contact Neuro/Ortho Surgery - Spine. / Neurological Surgery Diagnoses Degeneration of intervertebral disc of lumbar region with discogenic back pain Brandyn Yadav PA-C [address] [place] [phone] Phone: tel: fax: Referral ID Status Reason Start Date Expiration Date Visits Requested Visits Authorized [id number] Authorized Specialty Services Required 12/01/2024 999 999 [...] Yadav PA-C [address] [place] [phone] Phone: tel: fax: Referral ID Status Reason Start Date Expiration Date Visits Requested Visits Authorized [id number] Authorized Specialty Services Required 12/01/2024 999 999 [...] of knee, right Cipriano, Ralph Khan MD [address] [place] [address] [place] [address] Phone: tel: fax: Referral ID Status Reason Start Date Expiration Date Visits Requested Visits Authorized [id number] Authorized Specialty Services Required 10/30/[phone] Encounter Details Date Type Department Care Team (Latest Contact Info) Description 12/01/2024 9:30 AM EST Office Visit Orthopaedics [facility] [address] [place] [phone] Brandyn Yadav PA-C [address] [place] [phone] Right patellofemoral syndrome*; Patellofemoral arthritis of right [...] back to 5-15 CPAP 8-15 RDI 15.4 [place] Home Patient Essential hypertension with goal blood [...] mRNA, LNP-s, No Pre serve, 2-Dose Series ([employer]) 07/30/2021,02/09/2021,01/26/2021,01/10,12/20/2020 COVID-19, MRNA-LNP, 24-25, P R, 30MCG/0.3ML, IM, 12YRS AND ABOVE ([employer]) 08/05/2024 COVID-19, MRNA-LNP, PF, 30 M CG/0.3 mL, 12 YRS AND ABOVE, IM ([employer]) 08/08/2023 Covid-19, Mrna, Lnp-s, Pf, B ivalent, 30 Mcg, IM, 12 yrs and above ([employer]) 01/19/2023 DTaP Dipth/Tet/Acell Pertussis (Infanrix), Peds 10/22/2006 [...] he had 3 previous knee arthroscopies by [facility] for debridement as well as plica [...] complication, without long-term current use of insulin ([facility]) Gastroesophageal reflux disease without esophagitis Major depressive disorder, recurrent, unspecified ([facility]) Post-traumatic stress disorder, unspecified Sacroiliitis, not elsewhere classified ([facility]) Type 2 diabetes mellitus with diabetic polyneuropathy, without long-term current use of insulin ([facility]) Uncomplicated asthma Moderate episode of recurrent major depressive disorder ([facility]) Current Outpatient Medications Medication Sig Dispense Refill aspirin enteric coated 81 MG TBEC Take 1 Tablet by mouth in the morning. Blood Glucose Monitoring Suppl ([employer] VERIO) w/Device KIT Use up to 4 times a day E11.9 1 Kit 0 Food [employer] UltraSoft Lancets [facility] [place] Use as directed 4 times a day [...] performed by Teena Keith MD at ENDOSCOPY [facility] COLONOSCOPY, DIAGNOSTIC (RECTUM) 05/10/2021 Family hx colon cancer, diverticulosis, 5y recall/ COLONOSCOPY FLEXIBLE PROXIMAL DIAGNOSTIC performed by Teena Keith MD at ENDOSCOPY [facility] DESTROY LUMBAR SACRAL NERVE IMAGING SINGLE 12/30/2018 DESTROY LUMBAR SACRAL NERVE IMAGING SINGLE performed by Johnathan Darby, DO at OR [facility] DESTROY LUMBAR SACRAL NERVE IMAGING SINGLE 02/17/2019 DESTROY LUMBAR SACRAL NERVE IMAGING SINGLE performed by Johnathan Darby, at OR [facility] EMG, 1 EXTREMITY 05/31/2000 Left Leg. Positive for chronic L3-L4 radiculopathy. INJECT DX/THER SUBSTANCE INTERLAMINAR LUMBAR/SACRAL W IMAGE GUIDE 07/22/2018 INJECTION SPINE LUMBAR OR SACRAL performed by Johnathan Darby, at OR [facility] INJECT DX/THER SUBSTANCE INTERLAMINAR LUMBAR/SACRAL W IMAGE GUIDE 07/18/2023 INJECTION SPINE LUMBAR OR SACRAL performed by Johnathan Darby, at OR [facility] KNEE ARTHROSCOPY, DIAGNOSTIC X2 KNEE ARTHROSCOPY/SURGERY L-/S-SPINE PARAVERTEBRAL FACET INJ,1 LEVEL 09/19/2018 L-/S-SPINE PARAVERTEBRAL FACET INJ, 1 LEVEL performed by Johnathan Darby, DO at OR [facility] L-/S-SPINE PARAVERTEBRAL FACET INJ,1 LEVEL Bilateral 10/17/2018 L-/S-SPINE PARAVERTEBRAL FACET INJ, 1 LEVEL performed by Johnathan Darby, DO at OR [facility] L-/S-SPINE PARAVERTEBRAL FACET INJ,1 LEVEL 07/21/2019 L-/S-SPINE PARAVERTEBRAL FACET INJ, 1 LEVEL performed by Johnathan Darby, DO at OR [facility] L-/S-SPINE PARAVERTEBRAL FACET INJ,1 LEVEL 09/04/2019 L-/S-SPINE PARAVERTEBRAL FACET INJ, 1 LEVEL performed by Johnathan Darby, DO at OR [facility] L-/S-SPINE PARAVERTEBRAL FACET INJ,1 LEVEL 03/11/2020 L-/S-SPINE PARAVERTEBRAL FACET INJ, 1 LEVEL performed by Johnathan Darby, DO at OR [facility] L-/S-SPINE PARAVERTEBRAL FACET INJ,1 LEVEL 06/24/2020 L-/S-SPINE PARAVERTEBRAL FACET INJ, 1 LEVEL performed by Johnathan Darby, DO at OR [facility] L-/S-SPINE PARAVERTEBRL FACET INJ,2 LEVELS 06/24/2020 L-/S-SPINE PARAVERTEBRAL FACET INJ, 2 LEVELS performed by Johnathan Darby, DO at OR [facility] LASER TRABECULOPLASTY 08/23/2012 Laser procedure of the LEFT eye; Dr. Brown LUMBAR / SACRAL EPIDURAL, SINGLE LEVEL 06/12/2016 INJECTION TRANSFORAMINAL EPIDURAL LUMBAR OR SACRAL performed by Johnathan Safia Darby, DO at OR [facility] LUMBAR / SACRAL EPIDURAL, SINGLE LEVEL 04/11/2018 INJECTION TRANSFORAMINAL EPIDURAL LUMBAR OR SACRAL performed by Johnathan Safia Darby, DO at OR [facility] LUMBAR / SACRAL EPIDURAL, SINGLE LEVEL 05/16/2018 INJECTION TRANSFORAMINAL EPIDURAL LUMBAR OR SACRAL performed by Johnathan Safia Darby, DO at OR [facility] MISCELLANEOUS ORDER ([facility] ONLY) Bilateral adhesive capsulitis [...] performed by Johnathan Darby, DO at OR [facility] SACROILIAC JOINT INJECT W/GUIDANCE 01/09/2022 INJECTION SACROILIAC JOINT performed by Johnathan Darby, DO at OR [facility] SACROILIAC JOINT INJECT W/GUIDANCE 08/16/2022 INJECTION SACROILIAC JOINT performed by Johnathan Darby, DO at OR [facility] Review of patient's allergies indicates: Allergen Reactions Metaxalone Skelexin-numbness and tingling, itching Percodan GI upset Sulfa Antibiotics rash Amoxicillin-Pot Clavulanate Diarrhea Family History Problem Relation Name Age of Onset Cancer Father lung Cancer Brother colon Heart Disorder Mother [place] late 70's Thyroid Disorder Mother Graves Diabetes [...] on file Occupational History 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 Grammatical errors, random [...] AM EST Office Visit Orthopaedics Spine Surgery [facility] [address] [place] [phone] Dinesh Reilly MD [address] [place] [address] 01/12/2025 10:15 AM EDT Office Visit Orthopaedics [facility] [address] [place] [phone] Brandyn Yadav PA-C [address] [place] [phone] 04/10/2025 1:00 PM EDT Office Visit Orthopaedics Spine Surgery [facility] [address] [place] [phone] Dinesh Reilly MD [address] [place] [address] 05/26/2025 2:45 PM EDT Office Visit Urology, [facility] [address] [place] [address] Man Odonnell MD [address] [place] [address] Pending Results Name Type Priority Associated Diagnoses Date /Time XR KNEE 4 OR MORE VIEWS Medical Imaging Routine 12/01/2024 9:59 AM EST Scheduled Procedures Name Priority Associated Diagnoses Date/Ti [...] 04/21, 08/21/2023, Additional history exists Albumin/Creatinine Ratio 09/17/20252 024, 05/01/2024, 08/21/2023, Additional history exists B-12 [...] as of this encounter Visit Diagnoses Diagnosis Right patellofemoral syndrome- Primary Pain in joint, lower leg Patellofemoral arthritis of right knee documented in this encounter Care Teams Automation And Control Engineer Relationship Specialty Start Date End Date Arthur Ng DO [address] [facility] [place] [address] PCP - General Family Medicine 11/20/19 documented as of this encounter
--- OUTSIDE RECORDS SUMMARY | 2024-12-03 04:49 | External Medical Summary | Summary of Care ---
Author Name Unknown Organization [facility] Address [address] [place] [address] Phone [phone] Care Team Providers Care Inspector Rubber Stamp Die Name Role Phone Jessie Ng Primary Care Provider Reason for Visit * Reason Comments Follow Up Encounter Details Date Type Department Care Team (Late st Contact Info) Description 11/12/2024 1:45 PM EST Office Visit Urology, [facility] [address] [facility] [place] [address] Man Odonnell MD [address] [place] [address] Elevated prostate specific antigen (PSA)*; BPH with obstruction/lower urinary tract symptoms Allergies Active Allergy Reactions Criticality Noted Date Comments Amoxicillin-Pot Clavulanate Diarrhea Low 06/18/20 14 Metaxalone 06/18/1998 Skelexin-numbness and tingling, itching Percodan 10/12/1997 GI upset Sulfa Antibiotics 10/28/2002 rash documented as of this encounter (statuses as of 11/12/2024) Medications aspirin enteric coated 81 MG TBEC Take 1 Tablet by mouth in the morning. 017 Active Blood Glucose Monitoring Suppl (DJZ VERIO) w/Device KITIndications:Ty pe 2 diabetes mellitus without complication, without long-term current use of insulin (HCC) Use up to 4 times a day E11.9 1 Kit Active OneTouch UltraSoft Lancets MISCIndications:T ype 2 diabetes mellitus without complication, without long-term current use of insulin (HCC) Use as directed 4 times a day as needed for Hyperglycemia (high sugar). Use up to four times a day as directed 100 Each 11 Active Multi-Vitamin Oral Tablet Take 1 Tablet by mouth in the morning. 90 Tablet 3 024 Active Betamethasone Dipropionate Aug 0.05 % External Ointment (Diprolene)Indica tions:Dermatitis Apply to affected area twice a day, do not use for more than 2 weeks at a time 50 g 3 024 Active metFORMIN HCl ER 500 MG Oral Tablet Extended Release 24 Hour (Glucophage XR)Indications:Ty pe 2 diabetes mellitus without complication, without long-term current use of insulin ([facility]) Take 1 Tablet by mouth 2 times a day with morning and evening meals. 180 Tablet 3 024 Active Testosterone 50 MG/5GM (1%) Transdermal GelIndications:Hy pogonadism in male Apply 5 grams in the morning to the shoulders or upper arms. 300 g 5 024 Active Sertraline HCl 100 MG Oral Tablet (Zoloft)Indicatio ns:Moderate episode of recurrent major depressive disorder (HCC) Take 1 Tablet by mouth in the morning. 90 Tablet 3 024 Active Tamsulosin HCl 0.4 MG Oral Capsule (Flomax) Take 1 Capsule by mouth in the morning. 30 Capsule 2 Active OneTouch Verio In Vitro Strip (Glucose Blood)Indications :Type 2 diabetes mellitus without complication, without long-term current use of insulin (HCC) Use up to 4 times a day E11.9 400 Strip 1 024 Active Ondansetron 4 MG Oral Tablet Disintegrating (Zofran)Indicatio ns:Nausea Place 1 Tablet on tongue every 8 hours as needed for Nausea. dissolve on tongue. 20 Tablet 024 Active Atorvastatin Calcium 40 MG Oral Tablet (Lipitor)Indicati ons:Dyslipidemia, goal to be determined Take 1 Tablet by mouth in the morning. In the morning.. 90 Tablet 1 025 Active Omeprazole 20 MG Oral Capsule Delayed Release (PriLOSEC) Take 1 Capsule by mouth in the morning. 90 Capsule 1 025 Active HYDROcodone-Aceta minophen 5-325 MG Oral TabletIndications :Pain Take 1 Tablet by mouth 3 times a day as needed (for pain). 90 Tablet 025 Active Sildenafil Citrate 50 MG Oral Tablet Take 1-2 Tablets by mouth daily as needed for Erectile Dysfunction. 20 Tablet 6 025 Active Tadalafil 5 MG Oral Tablet (Cialis)Indicatio ns:Benign prostatic hyperplasia with lower urinary tract symptoms, symptom details unspecified 1 daily for lower urinary tract symptoms FILL PRESCRIBED 90 Tablet 3 024 2024 Discontinued documented as of this encounter (statuses as of 11/12/2024) Active Problems Problem Noted Date Diagnosed Date [...] back to 5-15 CPAP 8-15 RDI 15.4 German Morley Patient Essential hypertension with goal blood pressure less than 140/90 06/11/2008 Insomnia 11/13/2006 Overview (07/23/2017): ICD-10 update of inactive term 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 06/20/2002 Erectile Dysfunction 08/12/1998 documented as of this encounter (statuses as of 11/12/2024) Resolved Problems Problem Noted Date Diagnosed Date [...] as of this encounter (statuses as of 11/12/2024) Immunizations Name Administration Dates Next Due COVID-19 mRNA, LNP-s, No Pre serve, 2-Dose Series (ClearMyMail) 07/30/2021,02/09/2021,01/26/2021,01/10,12/20/2020 COVID-19, MRNA-LNP, 24-25, P R, 30MCG/0.3ML, IM, 12YRS AND ABOVE ([employer]) 08/05/2024 COVID-19, MRNA-LNP, PF, 30 M CG/0.3 mL, 12 YRS AND ABOVE, IM ([employer]) 08/08/2023 Covid-19, Mrna, Lnp-s, Pf, B ivalent, 30 Mcg, IM, 12 yrs and above ([employer]My[employer]) 01/19/2023 DTaP Dipth/Tet/Acell Pertussis (Infanrix), Peds 10/22/2006 [...] 03/26/2024 Does the household have a re lar source of income? (Household - for ages [...] as of this encounter Progress Notes * Man Odonnell MD - 11/12/2024 1:45 PM EST [id number] PCP: JESSIE NG [address] [place] [address] [phone] Jean Gates is a 73 year old male, who presents for follow-up of his history of BPH and elevated PSA. Patient's past notes reviewed. Unfortunately, the patient's PSA has continued to rise. Free PSA of 33% is noted. Patient's history of topical testosterone use is noted. 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 He is using tadalafil, tamsulosin and testosterone. BPH: Patient is being seen for BPH today. He has had the following symptoms: slow stream, intermittency,nocturia x 1-2, urgency and frequency. Severity is moderate. Using tadalafil for LUTS. He has previously had no surgery done. Problem has been present for years. Problem is getting worse. Elevated PSA: Patient is being seen for evaluation of an elevated PSA. Previous evaluation includes prostate biopsy Sep 2019, 1 core with atypia.. Patient has been on tadalafil daily. ED: Using tadalafil and testosterone. Provided by PMD. Provided for low libido. PSA Results: Lab Results Component Value Date/Time PSA - [facility] 7.78 (H) 09/17/2024 08:57 AM PSA - [facility] 5.69 (H) 02/07/2024 03:57 PM PSA - [facility] 6.07 (H) 08/21/2023 08:43 AM PSA - [facility] 4.62 (H) 09/02/2020 10:29 AM PSA - [facility] 4.74 (H) 09/22/2019 11:43 AM PSA - [facility] 4.17 (H) 10/29/2018 02:16 PM PSA SCREENING 3.28 06/18/2014 11:14 AM PSA SCREENING 2.62 11/14/2012 10:49 AM PSA SCREENING 2.75 11/18/2010 11:42 AM Current Outpatient Medications Medication Sig Dispense Refill aspirin enteric coated 81 MG TBEC Take 1 Tablet by mouth in the morning. Blood Glucose Monitoring Suppl (ONETOUCH VERIO) w/Device KIT Use up to 4 times a day E11.9 1 Kit 0 OneTouch UltraSoft Lancets MIS Use as directed 4 times a day [...] morning and evening meals. 180 Tablet 3 Tadalafil 5 MG Oral Tablet (Cialis) 1 daily for lower urinary tract symptoms FILL PRESCRIBED 90 Tablet 3 Testosterone 50 MG/5GM (1%) Transdermal Gel Apply 5 grams in the morning to the shoulders or upper arms. 300 g 5 Sertraline HCl 100 MG Oral Tablet (Zoloft) [...] as needed (for pain). 90 Tablet 0 No current facility-administered medications for this visit. Review of patient's allergies indicates: Allergen Reactions Metaxalone Skelexin-numbness and tingling, itching Percodan GI upset Sulfa Antibiotics rash Amoxicillin-Pot Clavulanate Diarrhea Social History: Social History Tobacco Use Smoking status: Former Current packs/day: 0.00 Average packs/day: 1 pack/day for 20.0 years (20.0 ttl pk-yrs) Types: Cigarettes Start date: 10/22/1966 Quit date: 10/22/1986 Years since quittin.0 Smokeless tobacco: Never Substance Use Topics Alcohol use: Yes Comment: very rare social Vaping/E-Cigarette Use Vaping/E-Cigarette Use Never User Vaping/E-Cigarette Substances Vaping/E-Cigarette Devices Family History Problem Relation Name Age of Onset Cancer Father lung Cancer Brother colon Heart Disorder Mother DE late 70's Thyroid Disorder Mother Graves Diabetes Brother 1/2 brother same mother Eye Problems Sister Multiple Sclerosis Sister Eye Problems Brother Prostate cancer Brother Other (skin disorders) Other denies melanoma or other skin disorders Allergies Son No Past Hx Daughter Eye Problems None Denies family hx of retinal problems Glaucoma None Past Surgical History: Procedure Laterality Date COLONOSCOPY W/ BIOPSY (RECTUM) 01/18/2011 one polyp, path shows adenomatous tissuerepeat in 5 years COLONOSCOPY, DIAGNOSTIC (RECTUM) 03/01/2016 diverticulosis, repeat 5 yrs/COLONOSCOPY FLEXIBLE PROXIMAL DIAGNOSTIC performed by Teena Keith MD at [facility] COLONOSCOPY, DIAGNOSTIC (RECTUM) 05/10/2021 Family hx colon cancer, diverticulosis, 5y recall/ COLONOSCOPY FLEXIBLE PROXIMAL DIAGNOSTIC performed by Teena Keith MD at [facility] DESTROY LUMBAR SACRAL NERVE IMAGING SINGLE 12/30/2018 DESTROY LUMBAR SACRAL NERVE IMAGING SINGLE performed by Johnathan Darby, at [facility] DESTROY LUMBAR SACRAL NERVE IMAGING SINGLE 02/17/2019 DESTROY LUMBAR SACRAL NERVE IMAGING SINGLE performed by Johnathan Darby DO at OR [facility] EMG, 1 EXTREMITY 05/31/2000 Left Leg. Positive for chronic L3-L4 radiculopathy. INJECT DX/THER SUBSTANCE INTERLAMINAR LUMBAR/SACRAL W IMAGE GUIDE 07/22/2018 INJECTION SPINE LUMBAR OR SACRAL performed by Johnathan Darby, at [facility] INJECT DX/THER SUBSTANCE INTERLAMINAR LUMBAR/SACRAL W IMAGE GUIDE 07/18/2023 INJECTION SPINE LUMBAR OR SACRAL performed by Johnathan Darby, DO at [facility] KNEE ARTHROSCOPY, DIAGNOSTIC X2 KNEE ARTHROSCOPY/SURGERY L-/S-SPINE PARAVERTEBRAL FACET INJ,1 LEVEL 09/19/2018 L-/S-SPINE PARAVERTEBRAL FACET INJ, 1 LEVEL performed by Johnathan Darby, DO at [facility] L-/S-SPINE PARAVERTEBRAL FACET INJ,1 LEVEL Bilateral 10/17/2018 L-/S-SPINE PARAVERTEBRAL FACET INJ, 1 LEVEL performed by Johnathan Darby DO at [facility] L-/S-SPINE PARAVERTEBRAL FACET INJ,1 LEVEL 07/21/2019 L-/S-SPINE PARAVERTEBRAL FACET INJ, 1 LEVEL performed by Johnathan Darby, DO at [facility] L-/S-SPINE PARAVERTEBRAL FACET INJ,1 LEVEL 09/04/2019 L-/S-SPINE PARAVERTEBRAL FACET INJ, 1 LEVEL performed by Johnathan Darby, DO at [facility] L-/S-SPINE PARAVERTEBRAL FACET INJ,1 LEVEL 03/11/2020 L-/S-SPINE PARAVERTEBRAL FACET INJ, 1 LEVEL performed by Johnathan Darby DO at [facility] L-/S-SPINE PARAVERTEBRAL FACET INJ,1 LEVEL 06/24/2020 L-/S-SPINE PARAVERTEBRAL FACET INJ, 1 LEVEL performed by Johnathan Darby, DO at [facility] L-/S-SPINE PARAVERTEBRL FACET INJ,2 LEVELS 06/24/2020 L-/S-SPINE PARAVERTEBRAL FACET INJ, 2 LEVELS performed by Johnathan Eugene Darby, at [facility] LASER TRABECULOPLASTY 08/23/2012 Laser procedure of the LEFT eye; Dr. Brown LUMBAR / SACRAL EPIDURAL, SINGLE LEVEL 06/12/2016 INJECTION TRANSFORAMINAL EPIDURAL LUMBAR OR SACRAL performed by Johnathan Safia Darby, DO at [facility] LUMBAR / SACRAL EPIDURAL, SINGLE LEVEL 04/11/2018 INJECTION TRANSFORAMINAL EPIDURAL LUMBAR OR SACRAL performed by Johnathan Safia Darby, DO at [facility] LUMBAR / SACRAL EPIDURAL, SINGLE LEVEL 05/16/2018 INJECTION TRANSFORAMINAL EPIDURAL LUMBAR OR SACRAL performed by Mcdermott Safia Darby, at [facility] MISCELLANEOUS ORDER ([facility] ONLY) Bilateral adhesive capsulitis [...] performed by Johnathan Darby, DO at [facility] SACROILIAC JOINT INJECT W/GUIDANCE 01/09/2022 INJECTION SACROILIAC JOINT performed by Johnathan Darby, DO at [facility] SACROILIAC JOINT INJECT W/GUIDANCE 08/16/2022 INJECTION SACROILIAC JOINT performed by Johnathan Darby, at [facility] Past Medical History: Diagnosis Date Adenomatous colon [...] HYPOFUNC NEC 05/10/2005 Type 2 diabetes mellitus ([facility]) 02/27/2007 Vitreous hemorrhage ([facility]) 09/29/2012 left eye Patient Active Problem List Diagnosis Erectile Dysfunction [...] without long-term current use of insulin (HCC) Gastroesophageal reflux disease without esophagitis Major depressive disorder, recurrent, unspecified (HCC) Post-traumatic stress disorder, unspecified Sacroiliitis, not elsewhere classified ([facility]) Type 2 diabetes mellitus with diabetic polyneuropathy, without long-term current use of insulin ([facility]) Uncomplicated asthma Moderate episode of recurrent major depressive disorder ([facility]) Constitutional: (-) fever and (-) chills Eyes: (+) corrective lenses ENT: (-) stridor Male : see HPI Musculoskeletal: (+) back pain/problems Neurology: (+) tremor Psychiatry: (+) expressive aphasia Physical Exam Nursing note reviewed. Constitutional: Appearance: Normal appearance. HENT: Head: Normocephalic and atraumatic. Right Ear: External ear normal. Left Ear: External ear normal. Ears: Comments: Resolving right periocular ecchymosis Nose: Nose normal. Mouth/Throat: Mouth: Mucous membranes are moist. Eyes: Extraocular Movements: Extraocular movements intact. Cardiovascular: Pulses: Normal pulses. Pulmonary: Effort: Pulmonary effort is normal. No respiratory distress. Abdominal: Palpations: Abdomen is soft. Tenderness: There is no abdominal tenderness. Musculoskeletal: Cervical back: Normal range of motion and neck supple. Lymphadenopathy: Cervical: No cervical adenopathy. Skin: Coloration: Skin is not cyanotic or pale. Neurological: Mental Status: He is alert and oriented to person, place, and time. Comments: Intention tremor, mild Psychiatric: Attention and Perception: Attention normal. Mood and Affect: Mood and affect normal. Impression/Plan: 73-year-old male with a history of elevated and rising PSA. Findings reviewed with the patient. Patient request switch to sildenafil for his ED as he feels tadalafil is not as effective as previously - provided. While his PSA value is elevated his free PSA value is somewhat reassuring. Seen that it has been a couple of months since his last value we will recheck it today. If the value remains elevated will proceed with a prostate MRI. If both of these areworrisome for the presence of malignancy will consider a prostate biopsy. Otherwise, will see the patient in 6 months time with repeat lab work. Above content is personally reviewed. Patient vocalizes good understanding of the treatment plan. Man Odonnell MD 12:09 PM 11/12/2024 documented in this encounter Nursing Notes * Sruthi Fry LPN - 11/12/2024 1:27 PM EST 20 month ret. Patient presents alone. Tamsulosin, tadalafil, testosterone gel. documented in this encounter Plan of Treatment Upcoming Encounters Date Type Department Care Team (Late st Contact Info) Description 11/14/2024 9:30 AM EST Office Visit Orthopaedics [facility] [address] [place] [phone] Brandyn Yadav PA-C [address] [place] [phone] 04/10/2025 1:00 PM EDT Office Visit Orthopaedics Spine Surgery [facility] [address] [facility] [place] [phone] Dinesh Reilly MD [address] [place] [address] 05/26/2025 2:45 PM EDT Office Visit Urology, [facility] [address] [place] [address] Man Odonnell MD [address] [place] [address] Pending Results Name Type Priority Associated Diagnoses Date /Time PSA WITH FREE PSA IF INDICATED Lab Routine Elevated prostate specific antigen (PSA) 11/12/2024 2:04 PM EST Scheduled Orders Name Type Priority Associated Diagnoses Orde r Schedule PSA WITH FREE PSA IF INDICATED Lab Routine Elevated prostate specific antigen (PSA) Expected: 11/12/2024, Expires: 11/12/2025 PSA WITH FREE PSA IF INDICATED Lab Routine Elevated prostate specific antigen (PSA) BPH with obstruction/lower urinary tract symptoms Expected: 05/12/2025 (Approximate), Expires: 11/12/2025 Scheduled Procedures Name Priority Associated Diagnoses Date/Ti [...] as of this encounter Visit Diagnoses Diagnosis Elevated prostate specific antigen (PSA)- Primary BPH with obstruction/lower urinary tract symptoms Hypertrophy of prostate with urinary obstruction and other lower urinary tract symptoms (LUTS) documented in this encounter Care Teams Inspector Rubber Stamp Die Relationship Specialty Start Date End Date Jessie Ng DO [address] [place] [address] PCP - General Family Medicine 11/20/19 documented as of this encounter
--- OUTSIDE RECORDS SUMMARY | 2024-12-03 04:49 | External Medical Summary | Summary of Care ---
Author Name Unknown Organization [facility] Address [address] [place] [address] Phone [phone] Care Team Providers Care Cable Inspector Name Role Phone NgCuongArthurruben Duvalmirlande Primary Care Provider Reason for Visit * Reason Comments Outpatient Testing Encounter Details Date Type Department Care Team (Late st Contact Info) Description 11/12/2024 2:00 PM EST Laboratory Laboratory, [facility] [address] [place] [phone] [facility] [address] [place] [address] Elevated prostate specific antigen (PSA) Allergies Active Allergy Reactions Criticality Noted Date Comments Amoxicillin-Pot Clavulanate Diarrhea Low 06/18/20 14 Metaxalone 06/18/1998 Skelexin-numbness and tingling, itching Percodan 10/12/1997 GI upset Sulfa Antibiotics 10/28/2002 rash documented as of this encounter (statuses as of 11/12/2024) Medications aspirin enteric coated 81 MG TBEC Take 1 Tablet by mouth in the morning. 05/07/20 17 Active Blood Glucose Monitoring Suppl (Cotap VERIO) w/Device KITIndications:Typ e 2 diabetes mellitus without complication, without long-term current use of insulin (HCC) Use up to 4 times a day E11.9 1 Kit 05/20/20 20 Active OneTouch UltraSoft Lancets MISCIndications:Ty pe 2 diabetes mellitus without complication, without long-term current use of insulin ([facility]) Use as directed 4 times a day as needed for Hyperglycemia (high sugar). Use up to four times a day as directed 100 Each 11 05/20/20 20 Active Multi-Vitamin Oral Tablet Take 1 Tablet by mouth in the morning. 90 Tablet 3 03/26/20 24 Active Betamethasone Dipropionate Aug 0.05 % External Ointment (Diprolene)Indicat ions:Dermatitis Apply to affected area twice a day, do not use for more than 2 weeks at a time 50 g 3 04/17/20 24 Active metFORMIN HCl ER 500 MG Oral Tablet Extended Release 24 Hour (Glucophage XR)Indications:Typ e 2 diabetes mellitus without complication, without long-term current use of insulin ([facility]) Take 1 Tablet by mouth 2 times a day with morning and evening meals. 180 Tablet 3 06/16/20 24 Active Testosterone 50 MG/5GM (1%) Transdermal GelIndications:Hyp ogonadism in male Apply 5 grams in the morning to the shoulders or upper arms. 300 g 5 06/16/20 24 Active Sertraline HCl 100 MG Oral Tablet (Zoloft)Indication s:Moderate episode of recurrent major depressive disorder (HCC) Take 1 Tablet by mouth in the morning. 90 Tablet 3 09/17/20 24 Active Tamsulosin HCl 0.4 MG Oral Capsule (Flomax) Take 1 Capsule by mouth in the morning. 30 Capsule 2 09/22/20 24 Active OneTouch Verio In Vitro Strip (Glucose Blood)Indications: Type 2 diabetes mellitus without complication, without long-term current use of insulin ([facility]) Use up to 4 times a day E11.9 400 Strip 1 09/22/20 24 Active Ondansetron 4 MG Oral Tablet Disintegrating (Zofran)Indication s:Nausea Place 1 Tablet on tongue every 8 hours as needed for Nausea. dissolve on tongue. 20 Tablet 09/22/20 24 Active Atorvastatin Calcium 40 MG Oral Tablet (Lipitor)Indicatio ns:Dyslipidemia, goal to be determined Take 1 Tablet by mouth in the morning. In the morning.. 90 Tablet 1 10/25/19 25 Active Omeprazole 20 MG Oral Capsule Delayed Release (PriLOSEC) Take 1 Capsule by mouth in the morning. 90 Capsule 1 10/25/19 25 Active HYDROcodone-Acetam inophen 5-325 MG Oral TabletIndications: Pain Take 1 Tablet by mouth 3 times a day as needed (for pain). 90 Tablet 10/27/19 25 Active Sildenafil Citrate 50 MG Oral Tablet Take 1-2 Tablets by mouth daily as needed for Erectile Dysfunction. 20 Tablet 6 11/12/19 25 Active documented as of this encounter (statuses as [...] back to 5-15 CPAP 8-15 RDI 15.4 [facility] Patient Essential hypertension with goal blood [...] mRNA, LNP-s, No Pre serve, 2-Dose Series ([employer]) 07/30/2021,02/09/2021,01/26/2021,01/10,12/20/2020 COVID-19, MRNA-LNP, 24-25, P R, 30MCG/0.3ML, IM, 12YRS AND ABOVE ([employer]) 08/05/2024 COVID-19, MRNA-LNP, PF, 30 M CG/0.3 mL, 12 YRS AND ABOVE, IM ([employer]) 08/08/2023 Covid-19, Mrna, Lnp-s, Pf, B ivalent, 30 Mcg, IM, 12 yrs and above ([employer]) 01/19/2023 DTaP Dipth/Tet/Acell Pertussis (Infanrix), Peds 10/22/2006 [...] on file documented as of this encounter Plan of Treatment Upcoming Encounters Date Type Department Care Team (Late st Contact Info) Description 11/14/2024 9:30 AM EST Office Visit Orthopaedics [facility] [address] [place] [phone] Brandyn Yadav PA-C [address] [place] [phone] 04/10/2025 1:00 PM EDT Office Visit Orthopaedics Spine Surgery [facility] [address] [place] [phone] Dinesh Reilly MD [address] [place] [address] 05/26/2025 2:45 PM EDT Office Visit Urology, [facility] [address] [place] [address] Man Odonnell MD [address] [place] [address] Pending Results Name Type Priority Associated Diagnoses Date /Time PSA WITH FREE PSA IF INDICATED Lab Routine Elevated prostate specific antigen (PSA) 11/12/2024 2:04 PM EST Scheduled Procedures Name Priority Associated Diagnoses [...] Visit Diagnoses Diagnosis Elevated prostate specific antigen (PSA) documented in this encounter Care Teams Cable Inspector Relationship Specialty Start Date End Date Arthur Ng DO [address] [place] [address] PCP - General Family Medicine 11/20/19 documented as of this encounter
--- OUTSIDE RECORDS SUMMARY | 2024-12-03 04:49 | External Medical Summary ---
Author Name Unknown Address Unknown Organization K01:[facility] - [address] [place] [address] Laboratory Report Ordering Provider Test Date Status MISA AKHTAR 11/12/2024 14:04:01 Final Observation Date Value Abnormality Reference (Units ) Status PSA 11/12/2024 14:04:01 5.85 Above high normal <4 .10 (ng/mL) Final Performing Location [facility] - [address] [place] [address]
--- OUTSIDE RECORDS SUMMARY | 2024-12-03 04:49 | External Medical Summary | Summary of Care ---
Author Name Unknown Organization [facility] Address [address] [place] [address] Phone [phone] Care Team Providers Care Referral Coordinator Name Role Phone Mumtaz Ngale Duvalmirlande Primary Care Provider Encounter Details Date Type Department Care Team (Late st Contact Info) Description 11/12/2024 Population Health External Data Unspecified Department Allergies Active Allergy Reactions Criticality Noted Date Comments Amoxicillin-Pot Clavulanate Diarrhea Low 06/18/20 14 Metaxalone 06/18/1998 Skelexin-numbness and tingling, itching Percodan 10/12/1997 GI upset Sulfa Antibiotics 10/28/2002 rash documented as of this encounter (statuses as of 11/12/2024) Medications aspirin enteric coated 81 MG TBEC Take 1 Tablet by mouth in the morning. 05/07/20 17 Active Blood Glucose Monitoring Suppl (ONETOUCH VERIO) w/Device KITIndications:Typ e 2 diabetes mellitus without complication, without long-term current use of insulin (HCC) Use up to 4 times a day E11.9 1 Kit 05/20/20 Active OneTouch UltraSoft Lancets MISCIndications:Ty pe 2 diabetes mellitus without complication, without long-term current use of insulin (HCC) Use as directed 4 times a day as needed for Hyperglycemia (high sugar). Use up to four times a day as directed 100 Each 11 05/20/20 Active Multi-Vitamin Oral Tablet Take 1 Tablet [...] back to 5-15 CPAP 8-15 RDI 15.4 [facility] Essential hypertension with goal blood [...] mRNA, LNP-s, No Pre serve, 2-Dose Series ([place]) 07/30/2021,02/09/2021,01/26/2021,01/10,12/20/2020 COVID-19, MRNA-LNP, 24-25, P R, 30MCG/0.3ML, IM, 12YRS AND ABOVE ([facility]) 08/05/2024 COVID-19, MRNA-LNP, PF, 30 M CG/0.3 mL, 12 YRS AND ABOVE, IM ([facility]) 08/08/2023 Covid-19, Mrna, Lnp-s, Pf, B ivalent, 30 Mcg, IM, 12 yrs and above (Pfizer) 01/19/2023 DTaP Dipth/Tet/Acell Pertussis (Infanrix), Peds 10/22/2006 [...] 11/14/2024 9:30 AM EST Office Visit Orthopaedics [facility] [address] [phone] Brandyn Yadav PA-C [address] [phone] 04/10/2025 1:00 PM EDT Office Visit Orthopaedics Spine Surgery [facility] [address] [phone] Dinesh Reilly MD [address] [place] [address] 05/26/2025 2:45 PM EDT Office Visit Urology, [facility] [address] [place] [address] Man Odonnell MD [address] [place] [...] Not on filedocumented as of this encounter Care Teams Referral Coordinator Relationship Specialty Start Date End Date Arthur Ng DO [address] [address] PCP - General Family Medicine 11/20/19 documented as of this encounter
--- OUTSIDE RECORDS SUMMARY | 2024-12-03 04:49 | External Medical Summary ---
Author Name Unknown Address Unknown Organization K01:LABORATORY [facility] [place] - [address] [place] [address] Laboratory Report Ordering Provider Test Date Status GIOVANAMISA 11/12/2024 14:04:01 Final Observation Date Value Abnormality Reference (Units ) Status Free PSA 11/12/2024 14:04:01 1.90 (ng/mL) Final Free PSA % 11/12/2024 14:04:01 32 >25 (%) Final Performing Location LAB[facility]ATORY [facility] [place] - [address] [place] [address]
--- OUTSIDE RECORDS SUMMARY | 2024-12-03 04:49 | External Medical Summary | Summary of Care ---
Author Name Unknown Organization [facility] Address [address] [address] Phone [phone] Care Team Providers Care Steel Roller Name Role Phone Arthur Ng Primary Care Provider Reason for Referral * Evaluate & Treat - Unlimited Visits (Within 10 days (routine)) - Authorized Specialty Diagnoses / Procedures Referred By Francisco Javier villarreal Referred To Contact Orthopaedic Surgery / Orthopedics Diagnoses Plica syndrome of knee, right Ralph Cota MD [address] [place] [address] [place] [address] Phone: tel: fax: Referral ID Status Reason Start Date Expiration Date Visits Requested Visits Authorized [id number] Authorized Specialty Services Required 10/30/[phone] Question Answer Referral Priority Within 10 days (routine) Where should this appointment be scheduled? [facility] What body part is the patient being seen for? Thigh/Knee What condition is the patient being seen for? Sprain/Strain/Tear/Other Comments Plica syndrome right knee, previous surgery with [facility], Dr Chowdhury Reason for Visit * Reason Comments Acute Pt here for symptoms of Plica syndrome in Rt knee, he has had this in the past and now has same type of symptoms. Had been seen at [facility] for 3 prior episodes. This was an abrupt onset 2 weeks ago.He feels this is number 4 with having this issue Encounter Details Date Type Department Care Team (Late st Contact Info) Description 10/30/2024 10:20 AM EST Office Visit Family [facility] [address] [place] [address] Ralph Cota MD [address] [place] [address] [place] [address] Plica syndrome of knee, right* Allergies Active Allergy Reactions Criticality Noted Date Comments Amoxicillin-Pot Clavulanate Diarrhea Low 06/18/20 14 Metaxalone 06/18/1998 Skelexin-numbness and tingling, itching Percodan 10/12/1997 GI upset Sulfa Antibiotics 10/28/2002 rash documented as of this encounter (statuses as of 10/30/2024) Medications aspirin enteric coated 81 MG TBEC [...] meals. 180 Tablet 3 06/16/20 24 Active Tadalafil 5 MG Oral Tablet (Cialis)Indicatio ns:Benign prostatic hyperplasia with lower urinary tract symptoms, symptom details unspecified 1 daily for lower urinary tract symptoms FILL PRESCRIBED 90 Tablet 3 06/16/20 24 Active Testosterone 50 MG/5GM (1%) Transdermal GelIndications:Hy [...] (for pain). 90 Tablet 10/27/19 25 Active predniSONE 20 MG Oral Tablet (Deltasone)Indica tions:Plica syndrome of knee, right two pills daily with food for 5 days, then one daily with food 15 Tablet 10/30/19 25 025 Active Cyclobenzaprine HCl 5 MG Oral Tablet (Flexeril)Indicat ions:DDD (degenerative disc disease), cervical Take 1 Tablet by mouth at bedtime as needed for Muscle spasms. 30 Tablet 09/22/20 24 025 Discontin ued(Patie nt preferenc e/discont inuation) documented as of this encounter (statuses as of 10/30/2024) Active Problems Problem Noted Date Diagnosed Date [...] back to 5-15 CPAP 8-15 RDI 15.4 [facility] Essential hypertension with goal blood pressure less than 140/90 06/11/2008 Insomnia 11/13/2006 Overview (07/23/2017): ICD-10 update of inactive term 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 06/20/2002 Erectile Dysfunction 08/12/1998 documented as of this encounter (statuses as of 10/30/2024) Resolved Problems Problem Noted Date Diagnosed Date [...] as of this encounter (statuses as of 10/30/2024) Immunizations Name Administration Dates Next Due COVID-19 mRNA, LNP-s, No Pre serve, 2-Dose Series (Me[employer]) 07/30/2021,02/09/2021,01/26/2021,01/10,12/20/2020 COVID-19, MRNA-LNP, 24-25, P R, 30MCG/0.3ML, IM, 12YRS AND ABOVE ([facility]) 08/05/2024 COVID-19, MRNA-LNP, PF, 30 M CG/0.3 mL, 12 YRS AND ABOVE, IM ([facility]) 08/08/2023 Covid-19, Mrna, Lnp-s, Pf, B ivalent, [...] on file documented as of this encounter Last Filed Vital Signs Vital Sign Reading Time Taken Comments Blood Pressure 136/72 10/30/2024 10:10 AM EST Pulse 64 10/30/2024 10:10 AM EST Temperature 35.9 C (96.7 F) 10/30/2024 10:[address] Respiratory Rate 16 10/30/2024 10:10 AM EST Oxygen Saturation - - Inhaled Oxygen Concentration - - Weight 79.4 kg (175 lb) 10/30/2024 10:10 AM EST Height - - Body Mass Index 28.25 09/17/2024 8:14 AM EST documented in this encounter Progress Notes * Ralph Coat MD - 10/30/2024 10:06 AM EST Jean was dropped in 1968 from 12 feet during parachute training in the [place] and hurt his right knee and has had problems since. Dr Chowdhury finally diagnosed plica syndrome and he has been scoped three times with relief that can last years. The right knee is acting up again with a pain that can reach 8. The hydrocodone drops it to a 4 but he feels he needs to see ortho again. Health Maintenance addressed. Is vaxxed Patient Active Problem List Diagnosis Erectile Dysfunction [...] stress disorder, unspecified Sacroiliitis, not elsewhere classified (HCC) Type 2 diabetes mellitus with diabetic polyneuropathy, without long-term current use of insulin (HCC) Uncomplicated asthma Moderate episode of recurrent major depressive disorder (HCC) Past Medical History: Diagnosis Date Adenomatous colon polyp 12/30 2mm sessile Adenomatous polyp of colon 12/30/2010 Bacterial pneumonia 12/07/2011 Benign neoplasm of colon 01/18/2011 one polyp, path shows adenomatous tissuerepeat in 5 years Benign prostatic hypertrophy with lower urinary tract symptoms (LUTS) 01/23/2017 Calculus of ureter 08/12/98 Dyslipidemia, goal to be determined Erectile Dysfunction 08/12/1998 Essential and other specified forms of tremor Family history of malignant neoplasm of colon 10/29/2018 Family history of malignant neoplasm of prostate 10/29/2018 FAMILY HX-GI MALIGNANCY 04/21/2005 Herpes zoster 06/13/09 HTN, goal below 140/90 06/11/2008 Insomnia, unspecified 11/13/2006 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 OS LUMBAR DISC DISPLACEMENT 06/20/2002 RENETTA DEPRESS DISOR SGL EPIS UNSP 11/13/2006 Major depressive disorder, single episode, severe (HCC) with PTSD Obstructive sleep apnea on CPAP JERMAINE (obstructive sleep apnea) 11/14/2011 Other chest pain 04/29/2012 Pulsatile tinnitus PVD (posterior vitreous detachment), both [...] performed by Teena Keith MD at ENDOSCOPY [facility] COLONOSCOPY, DIAGNOSTIC (RECTUM) 05/10/2021 Family hx colon cancer, diverticulosis, 5y recall/ COLONOSCOPY FLEXIBLE PROXIMAL DIAGNOSTIC performed by Teena Keith MD at ENDOSCOPY [facility] DESTROY LUMBAR SACRAL NERVE IMAGING SINGLE 12/30/2018 DESTROY LUMBAR SACRAL NERVE IMAGING SINGLE performed by Johnathan Darby DO at OR [facility] DESTROY LUMBAR SACRAL NERVE IMAGING SINGLE 02/17/2019 DESTROY LUMBAR SACRAL NERVE IMAGING SINGLE performed by Johnathan Darby DO at OR [facility] EMG, 1 EXTREMITY 05/31/2000 Left Leg. Positive for chronic L3-L4 radiculopathy. INJECT DX/THER SUBSTANCE INTERLAMINAR LUMBAR/SACRAL W IMAGE GUIDE 07/22/2018 INJECTION SPINE LUMBAR OR SACRAL performed by Johnathan Darby DO at OR [facility] INJECT DX/THER SUBSTANCE INTERLAMINAR LUMBAR/SACRAL W IMAGE GUIDE 07/18/2023 INJECTION SPINE LUMBAR OR SACRAL performed by Johnathan Darby DO at OR [facility] KNEE ARTHROSCOPY, DIAGNOSTIC X2 KNEE ARTHROSCOPY/SURGERY L-/S-SPINE PARAVERTEBRAL FACET INJ,1 LEVEL 09/19/2018 L-/S-SPINE PARAVERTEBRAL FACET INJ, 1 LEVEL performed by Johnathan Darby DO at OR [facility] L-/S-SPINE PARAVERTEBRAL FACET INJ,1 LEVEL Bilateral 10/17/2018 L-/S-SPINE PARAVERTEBRAL FACET INJ, 1 LEVEL performed by Johnathan Darby DO at OR [facility] L-/S-SPINE PARAVERTEBRAL FACET INJ,1 LEVEL 07/21/2019 L-/S-SPINE PARAVERTEBRAL FACET INJ, 1 LEVEL performed by Johnathan Darby DO at OR [facility] L-/S-SPINE PARAVERTEBRAL FACET INJ,1 LEVEL 09/04/2019 L-/S-SPINE PARAVERTEBRAL FACET INJ, 1 LEVEL performed by Johnathan Darby DO at OR [facility] L-/S-SPINE PARAVERTEBRAL FACET INJ,1 LEVEL 03/11/2020 L-/S-SPINE PARAVERTEBRAL FACET INJ, 1 LEVEL performed by Johnathan Darby DO at OR [facility] L-/S-SPINE PARAVERTEBRAL FACET INJ,1 LEVEL 06/24/2020 L-/S-SPINE PARAVERTEBRAL FACET INJ, 1 LEVEL performed by Johnathan Darby DO at OR [facility] L-/S-SPINE PARAVERTEBRL FACET INJ,2 LEVELS 06/24/2020 L-/S-SPINE PARAVERTEBRAL FACET INJ, 2 LEVELS performed by Johnathan Darby DO at OR [facility] LASER TRABECULOPLASTY 08/23/2012 Laser procedure of the LEFT eye; Dr. Brown LUMBAR / SACRAL EPIDURAL, SINGLE LEVEL 06/12/2016 INJECTION TRANSFORAMINAL EPIDURAL LUMBAR OR SACRAL performed by Johnathan Darby, DO at OR [facility] LUMBAR / SACRAL EPIDURAL, SINGLE LEVEL 04/11/2018 INJECTION TRANSFORAMINAL EPIDURAL LUMBAR OR SACRAL performed by Johnathan Darby, DO at OR [facility] LUMBAR / SACRAL EPIDURAL, SINGLE LEVEL 05/16/2018 INJECTION TRANSFORAMINAL EPIDURAL LUMBAR OR SACRAL performed by Johnathan Darby, at OR [facility] MISCELLANEOUS ORDER ([facility] ONLY) Bilateral adhesive capsulitis reversal under anethesia MISCELLANEOUS ORDER ([facility] ONLY) Right flank lipoma removed PARTIAL REMOVAL OF EYE FLUID 23G PPV for non-clearing VH OS; Dr. Brown REMOVAL OF APPENDIX 1961 SACROILIAC JOINT INJECT W/GUIDANCE 09/13/2020 INJECTION SACROILIAC JOINT performed by Johnathan Darby, DO at OR [facility] SACROILIAC JOINT INJECT W/GUIDANCE 01/09/2022 INJECTION SACROILIAC JOINT performed by Johnathan Darby, DO at OR [facility] SACROILIAC JOINT INJECT W/GUIDANCE 08/16/2022 INJECTION SACROILIAC JOINT performed by Johnathan Darby, DO at OR [facility] Review of patient's allergies indicates: Allergen Reactions Metaxalone Skelexin-numbness and tingling, itching Percodan GI upset Sulfa Antibiotics rash Amoxicillin-Pot Clavulanate Diarrhea Social History Socioeconomic History Marital status: Spouse name: Not on file Number of children: Not on file Years of education: Not on file Highest education level: Not on file Occupational History 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 (Adult - for ages 18 years and over): No Does your family have trouble paying for medicine? (Household - for ages 0-17 years): Not on file Food Insecurity: No Food Insecurity (03/26/2024) Food Insecurity Do you need food for this week? (Adult - for ages 18 years and over): No Are you able to get enough food for your family? (Household - for ages 0-17 years): Not on file Does your family need food this week? (Household - for ages 0-17 years): Not on file Do you always have enough food for your family? (Household - for ages 0-17 years): Not on file Transportation Needs: No Transportation Needs (03/26/2024) Transportation [...] Stability Do you currently live in a residential or have no steady place to sleep [...] - for ages0-17 years): Not on file Current Outpatient Medications Medication Sig Dispense Refill aspirin enteric coated 81 MG TBEC Take 1 Tablet by mouth in the morning. Blood Glucose Monitoring Suppl (ONETOUCH VERIO) w/Device KIT Use up to 4 times a day E11.9 1 Kit 0 OneTouch UltraSoft Lancets MISC Use as directed 4 times a day [...] Nausea. dissolve on tongue. 20 Tablet 0 Cyclobenzaprine HCl 5 MG Oral Tablet (Flexeril) Take 1 Tablet by mouth at bedtime as needed for Muscle spasms. 30 Tablet 0 Atorvastatin Calcium 40 MG Oral [...] No current facility-administered medications for this visit. Immunization History Administered Date(s) Administered COVID-19 mRNA, LNP-s, No Preserve, 2-Dose Series ([employer]) 12/20/2020, 01/10/2021, 01/26/2021, 02/09/2021, 07/30/2021 COVID-19, LNP-s, No Preserve, Gregg-sucrose, Ages 12+ (MeBeam) 02/26/2022 COVID-19, MRNA-LNP, 24-25, PA, 30MCG/0.3ML, IM, 12YRS AND ABOVE ([facility]) 08/05/2024 COVID-19, MRNA-LNP, PF, 30 MCG/0.3 mL, 12 YRS AND ABOVE, IM ([facility]) 08/08/2023 Covid-19, Mrna, Lnp-s, Pf, Bivalent, 30 Mcg, IM, 12 yrs and above ([employer]) 01/19/2023 DTaP - Dipth/Tet/Acell Pertussis (Infanrix), Peds 10/22/2006 Pneumococcal Conjugate Vacc, 13 Valent (Prevnar) 10/21/2015 Pneumococcal Polysaccharide PPV23 (Pneumovax) 07/13/2016 RSV Vac., Bivalent, Perfusion F, Pf,0.5 Ml (Abrysvo) 08/23/2023 Season Influenza, Quad, PF, Adjuvanted, 65+ Yrs, IM (FLUAD) 06/22/2020, 07/11/2022, 07/04/2023 Seasonal Influenza Vac., MDV, IM, 0.5 mL (Fluzone) 07/22/2012, 07/22/2013, 08/05/2014, 07/06/2017 Seasonal Influenza Virus Vaccine, Unspecified Formulation 07/31/2010, 07/22/2011, 07/22/2012, 07/22/2013, 08/05/2014, 07/19/2015, 07/06/2017, 06/27/2018, 06/27/2019, 06/22/2020, 06/22/2021 Seasonal Influenza, High Dose, Trivalent, PF, IM (Fluzone HD) 08/01/2024 Seasonal Influenza, PF, 6 M & above, IM , (FluLaval or Fluzone) 06/27/2018 Seasonal Influenza, Quadrivalent, No Preserve, IM 07/19/2015 Seasonal Influenza, Recombinant, Trivalent, PF (Flublock) 07/31/2016 Seasonal Influenza, Trivalent, (IIV3), PF, (Fluzone) 07/31/2010, 07/22/2011 Seasonal Influenza, Trivalent, Adjuvanted, 65+ YRS, PF, (Fluad) 06/27/2018, 06/20/2019 TD, Preservative Free 07/13/2016 TDAP (age 10 and older)(Boostrix) 03/18/2024 TDAP, Age 7 and older, IM (Adacel) 10/22/2005 Varicella Zoster Vaccine (Adult) 10/26/2014 Zoster Vaccine Recombinant (Shingrix) 05/20/2020, 09/02/2020, 09/02/2020 Lab Results Component Value Date/Time HEMOGLOBIN A1C - [facility] 6.2 (H) 09/17/2024 08:57 AM HEMOGLOBIN A1C - [facility] 6.5 (H) 05/01/2024 03:20 PM HEMOGLOBIN A1C - [facility] 6.4 (H) 08/21/2023 08:43 AM HEMOGLOBIN A1C - [facility] 6.9 (H) 09/02/2020 10:29 AM HEMOGLOBIN A1C - [facility] 7.5 (H) 05/20/2020 08:57 AM HEMOGLOBIN A1C - [facility] 6.9 (H) 11/04/2019 10:19 AM Results for orders placed or performed in visit on 09/17/24 LIPID PANEL WITH DIRECT LDL IF TG IS HIGH Result Value Ref Range Triglycerides 88 <=174 mg/dL Cholesterol 137 <200 mg/dL HDL Cholesterol 65 >39 mg/dL Non-HDL Cholesterol 72 <=159 mg/dL LDL Cholesterol 54 <=129 mg/dL Results for orders placed or performed in visit on 09/17/24 COMPREHENSIVE METABOLIC PANEL Result Value Ref Range BUN 22 (H) 6 - 20 mg/dL CREATININE 0.8 0.6 - 1.2 mg/dL EGFR >90 >=60 mL/min SODIUM 141 135 - 146 mmol/L POTASSIUM 4.5 3.5 - 5.1 mmol/L CHLORIDE 101 98 - 107 mmol/L CO2 30 22 - 32 mmol/L ANION GAP 10 7 - 15 mmol/L GLUCOSE 161 (H) 70 - 120 mg/dL Albumin 4.5 3.8 - 5.0 g/dL AST 23 10 - 50 U/L Alkaline Phosphatase 97 35 - 130 U/L Bilirubin, Total 0.4 <=1.2 mg/dL CALCIUM 9.9 8.4 - 10.2 mg/dL Protein 6.8 6.0 - 8.3 g/dL ALT 24 10 - 50 U/L O: General appearance: well developed, well nourished and in no acute distress. Blood pressure 136/72, pulse 64, temperature 96.7 F (35.9 C), temperature source Tympanic, resp. rate 16, weight 175 lb (79.4 kg). The right knee is just a little swollen A: Plica syndrome of knee, right (Primary) - predniSONE 20 MG Oral Tablet (Deltasone); two pills daily with food for 5 days, then one daily with food this is up to him. He did not want a muscle relaxer. He uses ice when the thigh tightens up. - ORTHOPAEDICS REFERRAL OP [facility]. Follow Up: Return if symptoms worsen or fail to improve. documented in this encounter Plan of Treatment Upcoming Encounters Date Type Department Care Team (Late st Contact Info) Description 11/12/2024 1:45 PM EST Office Visit Urology, [facility] [address] [address] Man Odonnell MD [address] [place] [address] 11/14/2024 9:30 AM EST Office Visit Orthopaedics [facility] [address] [phone] Brandyn Yadav PA-C [address] [address] 04/10/2025 1:00 PM EDT Office Visit Orthopaedics Spine Surgery [facility] [address] [phone] Dinesh Reilly MD [address] [place] [address] Scheduled Procedures Name Priority Associated Diagnoses Date/Ti me COLONOSCOPY FLEXIBLE PROXIMA L DIAGNOSTIC Recall Family history of colon cancer Scheduled Referrals Name Type Priority Associated Diagnoses Order Schedule ORTHOPAEDICS REFERRAL OP Referral Within 10 days (routine) Plica syndrome of knee, right Ordered: 10/30/2024 Health Maintenance Due Date Last Done Comments [...] as of this encounter Visit Diagnoses Diagnosis Plica syndrome of knee, right- Primary documented in this encounter Care Teams Steel Roller Relationship Specialty Start Date End Date Arthur Ng DO [address] [place] [address] PCP - General Family Medicine 11/20/19 documented as of this encounter
--- OUTSIDE RECORDS SUMMARY | 2024-12-03 04:49 | External Medical Summary | Summary of Care ---
Author Name Unknown Organization [facility] Address [address] [place] [address] Phone [phone] Care Team Providers Care Club Director Name Role Phone Jessie Ng DO Primary Care Provider Reason for Visit * Reason Onset Date Comments Medication Refill 10/23/2024 Encounter Details Date Type Department Care Team (Late st Contact Info) Description 10/23/2024 Refill Family Practice [facility] [address] [place] [address] Jessie Ng DO [address] [place] [address] Dyslipidemia, goal to be determined; Pain Allergies Active Allergy Reactions Criticality Noted Date Comments Amoxicillin-Pot Clavulanate Diarrhea Low 06/18/20 14 Metaxalone 06/18/1998 Skelexin-numbness and tingling, itching Percodan 10/12/1997 GI upset Sulfa Antibiotics 10/28/2002 rash documented as of this encounter (statuses as of 10/27/2024) Medications aspirin enteric coated 81 MG TBEC Take 1 Tablet by mouth in the morning. 05/07/20 17 Active Blood Glucose Monitoring Suppl (FiTeqIO) w/Device KITIndications:Ty pe 2 diabetes mellitus without complication, without long-term current use of insulin ([facility]) Use up to 4 times a day E11.9 1 Kit 05/20/20 20 Active OneTouch UltraSoft Lancets MISCIndications:T ype 2 diabetes mellitus without complication, without long-term current use of insulin ([facility]) Use as directed 4 times [...] on tongue. 20 Tablet 09/22/20 24 Active Cyclobenzaprine HCl 5 MG Oral Tablet (Flexeril)Indicat ions:DDD (degenerative disc disease), cervical Take 1 Tablet by mouth at bedtime as needed for Muscle spasms. 30 Tablet 09/22/20 24 Active Atorvastatin Calcium 40 [...] (for pain). 90 Tablet 10/27/19 25 Active Atorvastatin Calcium 40 MG Oral Tablet (Lipitor)Indicati ons:Dyslipidemia, goal to be determined Take 1 Tablet by mouth in the morning. In the morning.. 90 Tablet 1 07/17/20 24 025 Discontin ued(Refil l) Omeprazole 20 MG Oral Capsule Delayed Release (PriLOSEC) Take 1 Capsule by mouth in the morning. 90 Capsule 1 07/17/20 24 025 Discontin ued(Refil l) HYDROcodone-Aceta minophen 5-325 MG Oral TabletIndications :Pain Take 1 Tablet by mouth 3 times a day as needed (for pain). 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 06/20/2002 Erectile Dysfunction 08/12/1998 documented as of this encounter (statuses as of 10/27/2024) Resolved Problems Problem Noted Date Diagnosed Date [...] as of this encounter (statuses as of 10/27/2024) Immunizations Name Administration Dates Next Due COVID-19 mRNA, LNP-s, No Pre serve, 2-Dose Series ([employer]) 07/30/2021,02/09/2021,01/26/2021,01/10,12/20/2020 COVID-19, MRNA-LNP, 24-25, P R, 30MCG/0.3ML, IM, 12YRS AND ABOVE ([employer]) 08/05/2024 COVID-19, MRNA-LNP, PF, 30 M CG/0.3 mL, 12 YRS AND ABOVE, IM ([employer]) 08/08/2023 Covid-19, Mrna, Lnp-s, Pf, B ivalent, 30 Mcg, IM, 12 yrs and above ([employer]) 01/19/2023 DTaP Dipth/Tet/Acell Pertussis (Infanrix), Peds 10/22/2006 [...] No 03/26/2024 Does the household have a [facility] source of income? (Household - for ages [...] Miscellaneous Notes * Telephone Encounter - Jessie Ng, - 10/27/2024 8:49 AM EST Signed Prescriptions: Disp Refills Atorvastatin Calcium 40 MG Oral Tablet (Li*90 Tab*1 Sig: Take 1 Tablet by mouth in the morning. In the morning.. Authorizing Provider: JESSIE NG Ordering User: JERZY SALEH Omeprazole 20 MG Oral Capsule Delayed Rele*90 Cap*1 Sig: Take 1 Capsule by mouth in the morning. Authorizing Provider: JESSIE NG Ordering User: JERZY SALEH HYDROcodone-Acetaminophen 5-325 MG Oral Ta*90 Tab*0 Sig: Take 1 Tablet by mouth 3 times a day as needed (for pain). Authorizing Provider: JESSIE NG * Telephone Encounter - Jerzy Banerjee, [facility] - 10/25/2024 7:38 AM ESTPending Prescriptions: Disp Refills HYDROcodone-Acetaminophen 5-325 MG Oral Ta*90 Tab*0 Sig: Take 1 Tablet by mouth 3 times a day as needed (for pain). Signed Prescriptions: Disp Refills Atorvastatin Calcium 40 MG Oral Tablet (Li*90 Tab*1 Sig: Take 1 Tablet by mouth in the morning. In the morning.. Authorizing Provider: JESSIE NG Ordering User: JERZY SALEH Omeprazole 20 MG Oral Capsule Delayed Rele*90 Cap*1 Sig: Take 1 Capsule by mouth in the morning. Authorizing Provider: JESSIE NG Ordering User: JERZY SALEH * Telephone Encounter - Jerzy Banerjee, [facility] - 10/25/2024 7:38 AM EST I have reviewed the patients controlled substance dispensing history in the Prescription Drug Monitoring Program in compliance with the [facility] regulations before prescribing a controlled substance. PDMP checked on 10/25/2024. Pending Prescriptions: Disp Refills HYDROcodone-Acetaminophen 5-325 MG Oral T*90 Tab*0 Sig: Take 1 Tablet by mouth 3 times a day as needed (for pain). Signed Prescriptions: Disp Refills Atorvastatin Calcium 40 MG Oral Tablet (Li*90 Tab*1 Sig: Take 1 Tablet by mouth in the morning. In the morning.. Authorizing Provider: JESSIE NG Ordering User: JERZY SALEH Omeprazole 20 MG Oral Capsule Delayed Rele*90 Cap*1 Sig: Take 1 Capsule by mouth in the morning. Authorizing Provider: JESSIE NG Ordering User: JERZY SALEH Last Visit: 09/17/2024 (in office), Visit date not found (telemedicine) Next Visit: Visit date not found Date medication was last filled: 09/22/24 Date medication is due for refill: 10/21/24 Pharmacy: [id number] Is this request for a controlled [...] Results Review. Please approve if appropriate. Thank You, Jerzy Saleh [facility] Clinical Pharmacist Centralized Clinical Pharmacy Services ([facility]) 10/25/2024, 7:38 AM documented in this encounter Plan of Treatment Upcoming Encounters Date Type Department Care Team (Late st Contact Info) Description 11/12/2024 1:45 PM EST Office Visit Urology, [facility] [address] [place] [address] Man Odonnell MD [address] [place] [address] 04/10/2025 1:00 PM EDT Office Visit Orthopaedics Spine Surgery, [facility] [address] [place] [address] Dinesh Reilly MD [address] [place] [id number] Scheduled Procedures Name Priority Associated Diagnoses Date/Ti [...] as of this encounter Visit Diagnoses Diagnosis Dyslipidemia, goal to be determined Other and unspecified hyperlipidemia Pain Generalized pain documented in this encounter Care Teams Club Director Relationship Specialty Start Date End Date Jessie Ng DO [address] [place] [address] PCP - General Family Medicine 11/20/19 documented as of this encounter
--- OUTSIDE RECORDS SUMMARY | 2024-12-03 04:50 | External Medical Summary | Summary of Care ---
Author Name Unknown Organization [facility] Address [address] [facility] [address] Phone [phone] Care Team Providers Care Sewer Repairer Name Role Phone Jessie Ng Primary Care Provider Reason for Visit * Reason Onset Date Comments Medication Refill 09/20/2024 Encounter Details Date Type Department Care Team (Late st Contact Info) Description 09/20/2024 Refill Family Practice [facility] [address] [place] [address] Anisa Holman MD [address] [place] [address] Pain Allergies Active Allergy Reactions Criticality Noted Date Comments Amoxicillin-Pot Clavulanate Diarrhea Low 06/18/20 14 Metaxalone 06/18/1998 Skelexin-numbness and tingling, itching Percodan 10/12/1997 GI upset Sulfa Antibiotics 10/28/2002 rash documented as of this encounter (statuses as of 09/22/2024) Medications aspirin enteric coated 81 MG TBEC Take 1 Tablet by mouth in the morning. 05/07/20 17 Active Blood Glucose Monitoring Suppl ([employer] VERIO) w/Device KITIndications:Ty pe 2 diabetes mellitus without complication, without long-term current use of insulin ([facility]) Use up to 4 times a day E11.9 1 Kit 05/20/20 20 Active OneTouch UltraSoft Lancets MISCIndications:T ype 2 diabetes mellitus without complication, without long-term current use of insulin ([facility]) Use as directed 4 times a day as needed for Hyperglycemia (high sugar). Use up to four times a day as directed 100 Each 11 05/20/20 20 Active Glucose Blood (ONETOUCH VERIO) STRPIndications:T ype 2 diabetes mellitus without complication, without long-term current use of insulin ([facility]) Use up to 4 times a day E11.9 100 Strip 11 05/20/20 20 Active Ondansetron 4 MG Oral Tablet Disintegrating (Zofran)Indicatio ns:Nausea Place 1 Tablet on tongue every 8 hours as needed for Nausea. dissolve on tongue. 20 Tablet 03/20/20 23 Active Multi-Vitamin Oral Tablet Take 1 Tablet [...] complication, without long-term current use of insulin ([facility]) Take 1 Tablet by mouth 2 [...] arms. 300 g 5 06/16/20 24 Active Cyclobenzaprine HCl 5 MG Oral Tablet (Flexeril)Indicat ions:DDD (degenerative disc disease), cervical Take 1 Tablet by mouth at bedtime as needed for Muscle spasms. 30 Tablet 06/16/20 24 Active Atorvastatin Calcium 40 MG Oral Tablet (Lipitor)Indicati ons:Dyslipidemia, goal to be determined Take 1 Tablet by mouth in the morning. In the morning.. 90 Tablet 1 07/17/20 24 Active Omeprazole 20 MG Oral Capsule Delayed Release (PriLOSEC) Take 1 Capsule by mouth in the morning. 90 Capsule 1 07/17/20 24 Active Sertraline HCl 100 MG Oral Tablet (Zoloft)Indicatio ns:Moderate episode of recurrent major depressive disorder (HCC) Take 1 Tablet by mouth in the morning. 90 Tablet 3 09/17/20 24 Active HYDROcodone-Aceta minophen 5-325 MG Oral TabletIndications :Pain Take 1 Tablet by mouth 3 times a day as needed (for pain). 90 Tablet 09/22/20 24 Active Tamsulosin HCl 0.4 MG Oral Capsule (Flomax) Take 1 Capsule by mouth in the morning. 30 Capsule 2 09/22/20 24 Active HYDROcodone-Aceta minophen 5-325 MG Oral TabletIndications :Pain Take 1 Tablet by mouth 3 times a day as needed (for pain). 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 06/20/2002 Erectile Dysfunction 08/12/1998 documented as of this encounter (statuses as of 09/22/2024) Resolved Problems Problem Noted Date Diagnosed Date [...] as of this encounter (statuses as of 09/22/2024) Immunizations Name Administration Dates Next Due COVID-19 mRNA, LNP-s, No Pre serve, 2-Dose Series ([employer]) 07/30/2021,02/09/2021,01/26/2021,01/10,12/20/2020 COVID-19, MRNA-LNP, 24-25, P R, 30MCG/0.3ML, IM, 12YRS AND ABOVE ([employer]) 08/05/2024 COVID-19, MRNA-LNP, PF, 30 M CG/0.3 mL, 12 YRS AND ABOVE, IM ([employer]) 08/08/2023 Covid-19, Mrna, Lnp-s, Pf, B ivalent, 30 Mcg, IM, 12 yrs and above ([employer] system) 01/19/2023 DTaP Dipth/Tet/Acell Pertussis (Infanrix), Peds 10/22/2006 [...] No 03/26/2024 Does the [facility] have [facility]? (Household - for ages [...] Telephone Encounter - Jessie Ng DO - 09/22/2024 11:27 AM EST Signed Prescriptions: Disp Refills HYDROcodone-Acetaminophen 5-325 MG Oral Ta*90 Tab*0 Sig: Take 1 Tablet by mouth 3 times a day as needed (for pain). Authorizing Provider: JESSIE NG * Telephone Encounter - Sofy Mccracken, [facility] - 09/22/2024 10:43 AM ESTPending Prescriptions: Disp Refills HYDROcodone-Acetaminophen 5-325 MG Oral Ta*90 Tab*0 Sig: Take 1 Tablet by mouth 3 times a day as needed (for pain). * Telephone Encounter - Sofy Mccracken [facility] - 09/22/2024 10:43 AM EST I have reviewed the patients controlled substance dispensing history in the Prescription Drug Monitoring Program in compliance with the [facility] regulations before prescribing a controlled substance. PDMP checked on 09/22/2024. Pending Prescriptions: Disp Refills HYDROcodone-Acetaminophen 5-325 MG Oral T*90 Tab*0 Sig: Take 1 Tablet by mouth 3 times a day as needed (for pain). Last Visit: 09/17/2024 (in office), Visit date not found (telemedicine) Next Visit: Visit date not found Date medication was last filled: 08/21 Date medication is due for refill: 09/19 Pharmacy: [id number] Is this request for a controlled [...] Review. Please approve if appropriate. Thank you, Sofy Mccracken, PharmD Clinical Pharmacist Centralized Clinical Pharmacy Services ([facility]PS) 09/22/24 10:43 AM [phone] documented in this encounter Plan of Treatment Upcoming Encounters Date Type Department Care Team (Late st Contact Info) Description 10/17/2024 9:30 AM EST Imaging Radiology [address] 132 [facility] [place] [address] 04/10/2025 1:00 PM EDT Office Visit Orthopaedics Spine Surgery, [facility] [address] [place] [address] Dinesh Reilly MD [address] [place] [address] Scheduled Procedures Name Priority Associated Diagnoses Date/Ti [...] AAA Screening Completed 02/09/2016, 01/12/2009 Pneumococcal Vaccine: 65+ Years Completed 07/13/2016, 10/21/2015 Zoster Vaccines Completed [...] pain documented in this encounter Care Teams Sewer Repairer Relationship Specialty Start Date End Date Jessie Ng DO [address] [place] [address] PCP - General Family Medicine 11/20/19 documented as of this encounter
--- OUTSIDE RECORDS SUMMARY | 2024-12-03 04:50 | External Medical Summary | Summary of Care ---
Author Name Unknown Organization [facility] Address [address] [place] [address] Phone [phone] Care Team Providers Care Seismology Technical Officer Name Role Phone Arthur Ng Primary Care Provider Reason for Visit * Reason Onset Date Comments Medication Refill 09/20/2024 Encounter Details Date Type Department Care Team (Late st Contact Info) Description 09/20/2024 [facility]ill Urology, [facility] [place] [address] Giovana Bynum MD [address] [place] [address] Allergies Active Allergy Reactions Criticality Noted Date Comments Amoxicillin-Pot Clavulanate Diarrhea Low 06/18/20 14 Metaxalone 06/18/1998 Skelexin-numbness and tingling, itching Percodan 10/12/1997 GI upset Sulfa Antibiotics 10/28/2002 rash documented as of this encounter (statuses as of 09/24/2024) Medications aspirin enteric coated 81 MG TBEC Take 1 Tablet by mouth in the morning. 05/07/20 17 Active Blood Glucose Monitoring Suppl ([id number] VER[facility]) w/Device KITIndications:Ty pe 2 diabetes mellitus without complication, without long-term current use of insulin (HCC) Use up to 4 times a day E11.9 1 Kit 05/20/20 20 Active OneTouch UltraSoft Lancets MISCIndications:T ype 2 diabetes mellitus without complication, without long-term current use of insulin ([facility]) Use as directed 4 times a [...] long-term current use of insulin ([facility]) Take 1 Tablet by mouth 2 [...] arms. 300 g 5 06/16/20 24 Active Atorvastatin Calcium 40 MG [...] morning. 30 Capsule 2 09/22/20 24 Active Glucose Blood (ONETOUCH VERIO) STRPIndications:T ype 2 diabetes mellitus without complication, without long-term current use of insulin (HCC) Use up to 4 times a day E11.9 100 Strip 11 05/20/20 20 024 Discontin ued(Refil l) Ondansetron 4 MG Oral Tablet Disintegrating (Zofran)Indicatio ns:Nausea Place 1 Tablet on tongue every 8 hours as needed for Nausea. dissolve on tongue. 20 Tablet 03/20/20 23 024 Discontin ued(Refil l) Tamsulosin HCl 0.4 MG Oral Capsule (Flomax) Take 1 Capsule by mouth in the morning. 90 Capsule 3 03/10/20 24 024 Discontin ued(Refil l) Cyclobenzaprine HCl 5 MG Oral Tablet (Flexeril)Indicat ions:DDD (degenerative disc disease), cervical Take 1 Tablet by mouth at bedtime as needed for Muscle spasms. 30 Tablet 06/16/20 24 024 Discontin ued(Refil l) HYDROcodone-Aceta minophen 5-325 MG Oral TabletIndications :Pain Take 1 Tablet by mouth 3 times a day as needed (for pain). 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 ADHESIVE CAPSULIT SHLDER 10/12/1997 Back disorder 11/13/2006 PURE HYPERCHOLESTEROLEM 09/21 Overview (10/07/2009): Per Lipid Taxonomy. PULSATILE TINNITUS 0 Overview (03/25/2020): Acute. Adenomatous colon polyp 03/23 Overview (11/14/2012): 2mm sessile documented as of this encounter (statuses as of 09/24/2024) Immunizations Name Administration Dates Next Due COVID-19 mRNA, LNP-s, No Pre serve, 2-Dose Series ([employer]) 07/30/2021,02/09/2021,01/26/2021,01/10,12/20/2020 COVID-19, MRNA-LNP, 24-25, P R, 30MCG/0.3ML, IM, 12YRS AND ABOVE ([employer]) 08/05/2024 COVID-19, MRNA-LNP, PF, 30 M CG/0.3 mL, 12 YRS AND ABOVE, IM ([employer]) 08/08/2023 Covid-19, Mrna, Lnp-s, Pf, B ivalent, 30 Mcg, IM, 12 yrs and above ([employer]) 01/19/2023 DTaP Dipth/Tet/Acell Pertussis (Infanrix), Peds 10/22/2006 [...] encounter Miscellaneous Notes * Telephone Encounter - Zelda Moody OSA - 09/24/2024 9:26 AM EST Pt is scheduled for November 12 * Telephone Encounter - Giovana Bynum MD - 09/22/2024 10:07 AM EST Patient overdue for OV. PSA has risen, needs f/o to discuss cancer risk. Thx, HM * Telephone Encounter - Giovana Bynum MD - 09/22/2024 10:07 AM EST Signed Prescriptions: Disp Refills Tamsulosin HCl 0.4 MG Oral Capsule (Flomax)30 Cap*2 Sig: Take 1 Capsule by mouth in the morning. Authorizing Provider: GIOVANA BYNUM * Telephone Encounter - Denise Erickson LPN - 09/22/2024 9:42 AM ESTPending Prescriptions: Disp Refills Tamsulosin HCl 0.4 MG Oral Capsule (Flomax)90 Cap*3 Sig: Take 1 Capsule by mouth in the morning. * Telephone Encounter - Lilly Maynard LPN - 09/22/2024 8:27 AM ESTPending Prescriptions: Disp Refills Tamsulosin HCl 0.4 MG Oral Capsule (Flomax)90 Cap*3 Sig: Take 1Capsule by mouth in the morning. documented in this encounter Plan of Treatment Upcoming Encounters Date Type Department Care Team (Late st Contact Info) Description 10/17/2024 9:30 AM EST Imaging Radiology [facility] [address] [facility] [place] [address] 11/12/2024 1:45 PM EST Office Visit Urology, [facility] [address] [place] [address] Giovana Bynum MD [address] [place] [address] 04/10/2025 1:00 PM EDT Office Visit Orthopaedics Spine Surgery, [facility] [address] [facility] [place] [address] Dinesh Reilly MD [address] [place] [address] Scheduled Procedures Name Priority Associated Diagnoses Date/Ti [...] filedocumented as of this encounter Care Teams Seismology Technical Officer Relationship Specialty Start Date End Date Arthur Ng DO [address] [place] [address] PCP - General Family Medicine 11/20/19 documented as of this encounter
--- OUTSIDE RECORDS SUMMARY | 2024-12-03 04:50 | External Medical Summary | Summary of Care ---
Author Name Unknown Organization [facility] Address [address] [place] [address] Phone [phone] Care Team Providers Care Test Engineering Manager Name Role Phone Arthur Ng DO Primary Care Provider Reason for Visit * Reason Onset Date Comments Medication Refill 09/20/2024 Encounter Details Date Type Department Care Team (Late st Contact Info) Description 09/20/2024 Refill Family Practice [facility] [address] [place] [address] Arthur Ng DO [address] [place] [address] Type 2 diabetes mellitus without complication, without long-term current use of insulin ([facility]) Allergies Active Allergy Reactions Criticality Noted Date Comments Amoxicillin-Pot Clavulanate Diarrhea Low 06/18/20 14 Metaxalone 06/18/1998 Skelexin-numbness and tingling, itching Percodan 10/12/1997 GI upset Sulfa Antibiotics 10/28/2002 rash documented as of this encounter (statuses as of 09/22/2024) Medications aspirin enteric coated 81 MG TBEC Take 1 Tablet by mouth in the morning. 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 300 g 5 06/16/20 24 Active Cyclobenzaprine HCl 5 MG Oral Tablet (Flexeril)Indicati ons:DDD (degenerative disc disease), cervical Take 1 Tablet [...] morning. 90 Tablet 3 09/17/20 24 Active HYDROcodone-Acetam inophen 5-325 MG Oral TabletIndications: Pain Take 1 Tablet by mouth 3 times a day as needed (for pain). 90 Tablet 09/22/20 24 Active Tamsulosin HCl 0.4 MG Oral Capsule (Flomax) Take 1 Capsule by mouth in the morning. 30 Capsule 2 09/22/20 24 Active documented as of this encounter (statuses [...] back to 5-15 CPAP 8-15 RDI 15.4 [facility] Patient Essential hypertension with goal blood pressure [...] mRNA, LNP-s, No Pre serve, 2-Dose Series ([employer] 07/30/2021,02/09/2021,01/26/2021,01/10,12/20/2020 COVID-19, MRNA-LNP, 24-25, P R, 30MCG/0.3ML, IM, 12YRS AND ABOVE ([employer]) 08/05/2024 COVID-19, MRNA-LNP, PF, 30 M CG/0.3 mL, 12 YRS AND ABOVE, IM ([employer]) 08/08/2023 Covid-19, Mrna, Lnp-s, Pf, B ivalent, 30 Mcg, IM, 12 yrs and above ([employer] 01/19/2023 DTaP Dipth/Tet/Acell Pertussis (Infanrix), Peds 10/22/2006 [...] encounter Miscellaneous Notes * Telephone Encounter - Kirsty Mccracken [facility] - 09/22/2024 12:01 PM ESTRefused Prescriptions: Disp Refills metFORMIN HCl ER 500 MG Oral Tablet Extend*180 Ta*3 Sig: Take 1Tablet by mouth 2 times a day with morning and evening meals.Refused By: KIRSTY MCCRACKEN for Refusal: Too soonReason for Refusal Comment: 180/3 sent 06/16 documented in this encounter Plan of Treatment Upcoming Encounters Date Type Department Care Team (Late st Contact Info) Description 10/17/2024 9:30 AM EST Imaging Radiology [address] [place] [address] 04/10/2025 1:00 PM EDT Office Visit Orthopaedics Spine Surgery, [facility] [address] [place] [address] Dinesh Reilly MD [address] [place] [address] Scheduled Procedures Name Priority Associated Diagnoses [...] as of this encounter Visit Diagnoses Diagnosis Type 2 diabetes mellitus without complication, without long-term current use of insulin (HCC) documented in this encounter Care Teams Test Engineering Manager Relationship Specialty Start Date End Date Arthur Ng DO [address] [place] [address] PCP - General Family Medicine 11/20/19 documented as of this encounter
--- OUTSIDE RECORDS SUMMARY | 2024-12-03 04:50 | External Medical Summary | Summary of Care ---
Author Name Unknown Organization [facility] Address [address] [place] [facility] [place] [address] Phone [phone] Care Team Providers Care Converting Supervisor Name Role Phone Arthur Ng Primary Care Provider Reason for Visit * Reason Onset Date Comments Medication Refill 09/20/2024 Encounter Details Date Type Department Care Team (Late st Contact Info) Description 09/20/2024 Refill Urology, [facility] [place] [address] Giovana Bynum MD 27 [...] 05/07/20 17 Active Blood Glucose Monitoring Suppl ([employer] [place] VERIO) w/Device KITIndications:Ty pe 2 diabetes mellitus without complication, without long-term current use of insulin (HCC) Use up to 4 times a day E11.9 1 Kit 05/20/20 20 Active OneTouch UltraSoft Lancets MISCIndications:T ype 2 diabetes mellitus without complication, without long-term current use of insulin ([facility]) Use as directed 4 times a day as needed for Hyperglycemia (high sugar). Use up to four times a day as directed 100 Each 11 05/20/20 20 Active Glucose Blood (ONETOUCH VERIO) STRPIndications:T ype 2 diabetes mellitus without complication, without long-term current use of insulin ([facility]) Use up to 4 times a day [...] without long-term current use of insulin ([facility]) Take 1 Tablet by mouth 2 times [...] morning. 90 Capsule 1 07/17/20 24 Active HYDROcodone-Aceta minophen 5-325 MG Oral TabletIndications :Pain Take 1 Tablet by mouth 3 times a day as needed (for pain). 90 Tablet 08/21/20 24 Active Sertraline HCl 100 MG Oral Tablet (Zoloft)Indicatio ns:Moderate episode of recurrent major depressive disorder (HCC) Take 1 Tablet by mouth in the morning. 90 Tablet 3 09/17/20 24 Active Tamsulosin HCl 0.4 MG Oral Capsule (Flomax) Take 1 Capsule by mouth in the morning. 30 Capsule 2 09/22/20 24 Active Tamsulosin HCl 0.4 MG Oral Capsule (Flomax) Take 1 Capsule by mouth in the morning. 90 Capsule 3 03/10/20 24 024 Discontin ued(Refil l) documented as [...] back to 5-15 CPAP 8-15 RDI 15.4 [place] Home Patient Essential hypertension with goal blood [...] mRNA, LNP-s, No Pre serve, 2-Dose Series (GBS) 07/30/2021,02/09/2021,01/26/2021,01/10,12/20/2020 COVID-19, MRNA-LNP, 24-25, P R, 30MCG/0.3ML, IM, 12YRS AND ABOVE ([employer]) 08/05/2024 COVID-19, MRNA-LNP, PF, 30 M CG/0.3 mL, 12 YRS AND ABOVE, IM ([employer]) 08/08/2023 Covid-19, Mrna, Lnp-s, Pf, B ivalent, 30 Mcg, IM, 12 yrs and above (GBS) 01/19/2023 DTaP Dipth/Tet/Acell Pertussis (Infanrix), Peds 10/22/2006 [...] No 03/26/2024 Does the household have a [facility] source of income? (Household - for ages [...] encounter Miscellaneous Notes * Telephone Encounter - Giovana Bynum MD [...] 1 Capsule by mouth in the morning. documented in this encounter Plan of Treatment Upcoming Encounters Date Type Department Care Team (Late st Contact Info) Description 10/17/2024 9:30 AM EST Imaging Radiology [address], [address] [place] [address] 04/10/2025 1:00 PM EDT Office Visit Orthopaedics Spine Surgery, [facility] 132 [facility] [place] [address] Dinesh Reilly MD [address] [place] [...] filedocumented as of this encounter Care Teams Converting Supervisor Relationship Specialty Start Date End Date Arthur Ng DO [address] [place] [address] PCP - General Family Medicine 11/20/19 documented as of this encounter
--- OUTSIDE RECORDS SUMMARY | 2024-12-03 04:50 | External Medical Summary | Summary of Care ---
Author Name Unknown Organization [facility] Address [address] [place] [address] Phone [phone] Care Team Providers Care Silk Brusher Name Role Phone Arthur Ng Primary Care Provider Reason for Visit * Reason Onset Date Comments Appointment 10/16/2024 Encounter Details Date Type Department Care Team (Late st Contact Info) Description 10/16/2024 Telephone [address] [place], [place] [id number] Mago Kamara TECH Appointment Allergies Active Allergy Reactions Criticality Noted Date Comments Amoxicillin-Pot Clavulanate Diarrhea Low 06/18/20 14 Metaxalone 06/18/1998 Skelexin-numbness and tingling, itching Percodan 10/12/1997 GI upset Sulfa Antibiotics 10/28/2002 rash documented as of this encounter (statuses as of 10/16/2024) Medications aspirin enteric coated 81 MG TBEC [...] a day as directed 100 Each 05/20/20 Active Multi-Vitamin Oral Tablet Take 1 [...] complication, without long-term current use of insulin ([facility]) Take 1 Tablet by mouth 2 times a day with morning and evening meals. 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 300 g 06/16/20 24 Active Atorvastatin Calcium 40 MG [...] Muscle spasms. 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 06/20/2002 Erectile Dysfunction 08/12/1998 documented as of this encounter (statuses as of 10/16/2024) Resolved Problems Problem Noted Date Diagnosed Date [...] as of this encounter (statuses as of 10/16/2024) Immunizations Name Administration Dates Next Due COVID-19 mRNA, LNP-s, No Pre serve, 2-Dose Series ([employer]) 07/30/2021,02/09/2021,01/26/2021,01/10,12/20/2020 COVID-19, MRNA-LNP, 24-25, P R, 30MCG/0.3ML, IM, 12YRS AND ABOVE ([employer]) 08/05/2024 COVID-19, MRNA-LNP, PF, 30 M CG/0.3 mL, 12 YRS AND ABOVE, IM ([employer]) 08/08/2023 Covid-19, Mrna, Lnp-s, Pf, B ivalent, 30 Mcg, IM, 12 yrs and above ([employer]) 01/19/2023 DTaP Dipth/Tet/Acell Pertussis (Infanrix), Peds 10/22/2006 [...] No 03/26/2024 Does the household have a [facility] source of income? (Household - for [...] encounter Miscellaneous Notes * Telephone Encounter - Mago Kamara TECH - 10/16/2024 4:34 PM EST Name: Jean Gates Do you have any of the following: Pacemaker, stents, heart valves, aneurysm clips? No Have you ever worked with metal or have you ever gotten metal in your eyes? No Have you had a colonoscopy in the last 30 days? No On dialysis? No Do you have any dermals or body piercing's? No or ? Do you wear an insulin pump or diabetic monitor? No No new tattoos CARRILLO Young documented in this encounter Plan of Treatment Upcoming Encounters Date Type Department Care Team (Late st Contact Info) Description 10/17/2024 9:30 AM EST Imaging Radiology [address] 132 [facility] [place] [address] 11/12/2024 1:45 PM EST Office Visit Urology, [facility] 132 [facility] [place] [address] Man Odonnell MD [address] [place] [address] 04/10/2025 1:00 PM EDT Office Visit Orthopaedics Spine Surgery, [facility] 132 [facility] [place] [address] Dinesh Reilly MD [address] [place] [...] filedocumented as of this encounter Care Teams Silk Brusher Relationship Specialty Start Date End Date Arthur Ng DO [address] [address] PCP - General Family Medicine 11/20/19 documented as of this encounter
--- OUTSIDE RECORDS SUMMARY | 2024-12-03 04:50 | External Medical Summary | Summary of Care ---
Author Name Unknown Organization [facility] Address [address] [facility] [place] [address] Phone [phone] Care Team Providers Care Customs Appraiser Name Role Phone Jessie gN DO Primary Care Provider Reason for Visit * Reason Onset Date Comments Medication Refill 09/20/2024 Encounter Details Date Type Department Care Team (Late st Contact Info) Description 09/20/[address] [facility] [address] [place] [address] Jessie Ng DO [address] [place] [address] Type 2 diabetes mellitus without complication, without long-term current use of insulin (HCC); Nausea; DDD (degenerative disc disease), cervical Allergies Active Allergy Reactions Criticality Noted Date [...] 1 Kit 05/20/20 Active OneTouch UltraSoft Lancets MISCIndications:T ype 2 [...] 2 weeks at a time 50 g 04/17/20 24 Active metFORMIN HCl ER 500 [...] Muscle spasms. 30 Tablet 09/22/20 24 Active Glucose Blood (ONETOUCH VERIO) [...] Tablet 03/20/20 23 024 Discontin ued(Refil l) Cyclobenzaprine HCl 5 MG Oral Tablet (Flexeril)Indicat ions:DDD (degenerative disc disease), cervical Take 1 Tablet by mouth at bedtime as needed for Muscle spasms. 30 Tablet 06/16/20 24 024 Discontin ued(Refil l) documented as [...] back to 5-15 CPAP 8-15 RDI 15.4 [place]ian Home Patient Essential hypertension with goal blood [...] mRNA, LNP-s, No Pre serve, 2-Dose Series ([employer]) 07/30/2021,02/09/2021,01/26/2021,01/10,12/20/2020 COVID-19, MRNA-LNP, 24-25, P R, 30MCG/0.3ML, IM, 12YRS AND ABOVE ([employer]) 08/05/2024 COVID-19, MRNA-LNP, PF, 30 M CG/0.3 mL, 12 YRS AND ABOVE, IM ([employer]) 08/08/2023 Covid-19, Mrna, Lnp-s, Pf, B ivalent, 30 Mcg, IM, 12 yrs and above ([employer]) 01/19/2023 DTaP Dipth/Tet/Acell Pertussis (Infanrix), Peds 10/22/2006 [...] Encounter - Jessie Ng DO - 09/22/2024 1:58 PM EST Signed Prescriptions: Disp Refills OneTouch Verio In Vitro Strip (Glucose Blo*400 St*1 Sig: Use up to 4 times a day E11.9 Authorizing Provider: JESSIE NG Ordering User: KIRSTY MCCRACKEN Ondansetron 4 MG Oral Tablet Disintegratin*20 Tab*0 Sig: Place 1 Tablet on tongue every 8 hours as needed for Nausea. dissolve on tongue. Authorizing Provider: JESSIE PERES Cyclobenzaprine HCl 5 MG Oral Tablet (Flex*30 Tab*0 Sig: Take 1 Tablet by mouth at bedtime as needed for Muscle spasms. Authorizing Provider: JESSIE NG * Telephone Encounter - Kirsty Mccracken [facility] - 09/22/2024 12:31 PM ESTPending Prescriptions: Disp Refills Ondansetron 4 MG Oral Tablet Disintegratin*20 Tab*0 Sig: Place 1 Tablet on tongue every 8 hours as needed for Nausea. dissolve on tongue. Cyclobenzaprine HCl 5 MG Oral Tablet (Flex*30 Tab*0 Sig: Take 1 Tablet by mouth at bedtime as needed for Muscle spasms. Signed Prescriptions: Disp Refills OneTouch Verio In Vitro Strip (Glucose Blo*400 St*1 Sig: Use up to 4 times a day E11.9 Authorizing Provider: JESSIE NG Ordering User: KIRSTY MCCRACKEN * Telephone Encounter - Kirsty Mccracken [facility] - 09/22/2024 12:24 PM EST Ondansetron last prescribed 03/20/23 Cyclobenzaprine is off protocol Please approve if continuation is appropriate Pending Prescriptions: Disp Refills Ondansetron 4 MG Oral Tablet Disintegrati*20 Tab*0 Sig: Place 1 Tablet on tongue every 8 hours as needed for Nausea. dissolve on tongue. Cyclobenzaprine HCl 5 MG Oral Tablet (Fle*30 Tab*0 Sig: Take 1 Tablet by mouth at bedtime as needed for Muscle spasms. Last Visit: 09/17/2024 (in office), Visit date not found (telemedicine) Next Visit: Visit date not found If no future appointments scheduled, and last appointment is greater than a year ago, please schedule patient for a follow-up appointment Last date the medication was ordered: 03/20/23, 06/16/24 Pharmacy: [id number] [facility] Is this request for a controlled substance? No Urine Drug Screen: Results for orders placed or performed in [...] results can be found in Results Review. Patient Phone Numbers Labs: Lab Results Component Value Date/Time CREAT 0.8 09/17/2024 08:57 AM CREAT 0.9 09/02/2020 10:29 AM CREAT 0.9 08/21/1996 09:15 AM POTASSIUM 4.5 09/17/2024 08:57 AM POTASSIUM 3.8 09/02/2020 10:29 AM POTASSIUM 4.2 08/21/1996 09:15 AM TSH 1.54 05/01/2024 03:20 PM TSH 2.48 05/20/2020 08:57 AM TSH 1.11 08/21/1996 09:15 AM LDL 54 09/17/2024 08:57 AM LDL 71 09/02/2020 10:29 AM LDL NOT APPLICABLE 09/02/2020 10:29 AM LDL 215. (HH) 08/27/1996 09:00 AM ALT 24 09/17/2024 08:57 AM ALT 22 09/02/2020 10:29 AM HGBA1C 6.2 (H) 09/17/2024 08:57 AM HGBA1C 6.9 (H) 09/02/2020 10:29 AM documented in this encounter Plan of Treatment Upcoming Encounters Date Type Department Care Team (Late st Contact Info) Description 10/17/2024 9:30 AM EST Imaging Radiology [facility] 132 [facility] [place] [address] 04/10/2025 1:00 PM EDT Office Visit Orthopaedics Spine Surgery, [facility] 132 [facility] [place] [address] Dinesh Reilly MD [address] [place] [address] Scheduled Procedures Name Priority Associated Diagnoses Date/Ti [...] 08/21/2023, Additional history exists Colonoscopy 05/10/2026 05/10/2021, 07, 03/01/2016, Additional history exists Colorectal Cancer Screening [...] without long-term current use of insulin (HCC) Nausea Nausea alone DDD (degenerative disc disease), cervical Degeneration of cervical intervertebral disc documented in this encounter Care Teams Customs Appraiser Relationship Specialty Start Date End Date Jessie Ng DO [address] [place] [address] PCP - General Family Medicine 11/20/19 documented as of this encounter
--- OUTSIDE RECORDS SUMMARY | 2024-12-03 04:50 | External Medical Summary | Summary of Care ---
Author Name Unknown Organization [facility] Address [address] [place] [address] Phone [phone] Care Team Providers Care Nuts And Bolts Assembler Name Role Phone Arthur Ng DO Primary Care Provider Reason for Visit * Reason Onset Date Comments Medication Refill 10/07/2024 Encounter Details Date Type Department Care Team (Late st Contact Info) Description 10/07/2024 Refill Family Practice [facility] [address] [place] [address] Arthur Ng DO [address] [place] [address] Type 2 diabetes mellitus without complication, without long-term current use of insulin (HCC); Benign prostatic hyperplasia with lower urinary tract symptoms, symptom details unspecified Allergies Active Allergy Reactions Criticality Noted Date Comments Amoxicillin-Pot Clavulanate Diarrhea Low 06/18/20 14 Metaxalone 06/18/1998 Skelexin-numbness and tingling, itching Percodan 10/12/1997 GI upset Sulfa Antibiotics 10/28/2002 rash documented as of this encounter (statuses as of 10/08/2024) Medications aspirin enteric coated 81 MG TBEC [...] long-term current use of insulin ([facility]) Use as directed 4 times [...] long-term current use of insulin ([facility]) Take 1 Tablet by mouth [...] as of this encounter (statuses as of 10/08/2024) Active Problems Problem Noted Date Diagnosed Date [...] back to 5-15 CPAP 8-15 RDI 15.4 Ivorian Home Patient Essential hypertension with goal blood pressure less than 140/90 06/11/2008 Insomnia 11/13/2006 Overview (07/23/2017): ICD-10 update of inactive term 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 ADHESIVE CAPSULIT SHLDER 10/12/1997 Back disorder 11/13/2006 PURE HYPERCHOLESTEROLEM 09/21 Overview (10/07/2009): Per Lipid Taxonomy. PULSATILE TINNITUS Overview (03/25/2020): Acute. Adenomatous colon polyp 03/23 Overview (11/14/2012): 2mm sessile documented as of this encounter (statuses as of 10/08/2024) Immunizations Name Administration Dates Next Due COVID-19 mRNA, LNP-s, No Pre serve, 2-Dose Series ([employer]) 07/30/2021,02/09/2021,01/26/2021,01/10,12/20/2020 COVID-19, MRNA-LNP, 24-25, P R, 30MCG/0.3ML, IM, 12YRS AND ABOVE ([employer]) 08/05/2024 COVID-19, MRNA-LNP, PF, 30 M CG/0.3 mL, 12 YRS AND ABOVE, IM ([employer]) 08/08/2023 Covid-19, Mrna, Lnp-s, Pf, B ivalent, 30 Mcg, IM, 12 yrs and above ([employer]) 01/19/2023 DTaP Dipth/Tet/Acell Pertussis (Infanrix), Peds 10/22/2006 [...] No 03/26/2024 Does the household have a [facility] source of income? (Household - for ages [...] encounter Miscellaneous Notes * Telephone Encounter - [facility] - 10/08/2024 11:57 AM EST Refused Prescriptions: Disp Refills metFORMIN HCl ER 500 MG Oral Tablet Extend*180 Ta*3 Sig: Take 1Tablet by mouth 2 times a day with morning and evening meals.Refused By: GUY CARSON for Refusal: Too soon Tadalafil 5 MG Oral Tablet (Cialis) 90 Tab*3 Si daily for lower urinary tract symptoms FILL PRESCRIBEDRefused By: GUY CARSON for Refusal: Too soon documented in this encounter Plan of Treatment Upcoming Encounters Date Type Department Care Team (Late st Contact Info) Description 10/17/2024 9:30 AM EST Imaging Radiology [facility] 132 [facility] [place] [address] 11/12/2024 1:45 PM EST Office Visit Urology, [facility] 132 [facility] [place] [address] Man Odonnell MD [address] [place] [phone] 04/10/2025 1:00 PM EDT Office Visit Orthopaedics Spine Surgery, [facility] 132 [facility] [place] [address] Dinesh Reilly MD [address] [place] [...] without long-term current use of insulin (HCC) Benign prostatic hyperplasia with lower urinary tract symptoms, symptom details unspecified documented in this encounter Care Teams Nuts And Bolts Assembler Relationship Specialty Start Date End Date Arthur Ng DO [address] [place] [address] PCP - General Family Medicine 11/20/19 documented as of this encounter
--- OUTSIDE RECORDS SUMMARY | 2024-12-03 04:50 | External Medical Summary | Summary of Care ---
Author Name Unknown Organization [facility] Address [address] [place] [address] Phone [phone] Care Team Providers Care Exhibitions And Collections Manager Name Role Phone Arthur Ng DO Primary Care Provider Reason for Visit * Reason Onset Date Comments Medication Refill 09/27/2024 Encounter Details Date Type Department Care Team (Late st Contact Info) Description 09/27/2024 Refill Family Practice [facility] [address] [place] [address] Arthur Ng DO [address] [place] [address] Type 2 diabetes mellitus without complication, without long-term current use of insulin (HCC); Benign prostatic hyperplasia with lower urinary tract symptoms, symptom details unspecified Allergies Active Allergy Reactions Criticality Noted Date Comments Amoxicillin-Pot Clavulanate Diarrhea Low 06/18/20 14 Metaxalone 06/18/1998 Skelexin-numbness and tingling, itching Percodan 10/12/1997 GI upset Sulfa Antibiotics 10/28/2002 rash documented as of this encounter (statuses as of 09/29/2024) Medications aspirin enteric coated 81 MG TBEC [...] use of insulin ([facility]) Use as directed 4 times [...] use of insulin ([facility]) Take 1 Tablet by mouth [...] as of this encounter (statuses as of 09/29/2024) Active Problems Problem Noted Date Diagnosed Date [...] back to 5-15 CPAP 8-15 RDI 15.4 Emirati Home Patient Essential hypertension with goal blood pressure less than 140/90 06/11/2008 Insomnia 11/13/2006 Overview (07/23/2017): ICD-10 update of inactive term 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 06/20/2002 Erectile Dysfunction 08/12/1998 documented as of this encounter (statuses as of 09/29/2024) Resolved Problems Problem Noted Date Diagnosed Date [...] as of this encounter (statuses as of 09/29/2024) Immunizations Name Administration Dates Next Due COVID-19 mRNA, LNP-s, No Pre serve, 2-Dose Series ([employer]) 07/30/2021,02/09/2021,01/26/2021,01/10,12/20/2020 COVID-19, MRNA-LNP, 24-25, P R, 30MCG/0.3ML, IM, 12YRS AND ABOVE ([employer]) 08/05/2024 COVID-19, MRNA-LNP, PF, 30 M CG/0.3 mL, 12 YRS AND ABOVE, IM ([employer]) 08/08/2023 Covid-19, Mrna, Lnp-s, Pf, B ivalent, 30 Mcg, IM, 12 yrs and above ([employer]) 01/19/2023 DTaP Dipth/Tet/Acell Pertussis (Infanrix), Peds 10/22/2006 [...] No 03/26/2024 Does the household have a [facility] source of income? (Household - for ages [...] encounter Miscellaneous Notes * Telephone Encounter - [facility] - 09/29/2024 11:13 AM ESTRefused Prescriptions: Disp Refills metFORMIN HCl ER 500 MG Oral Tablet Extend*180 Ta*3 Sig: Take 1Tablet by mouth 2 times a day with morning and evening meals.Refused By: Susan MILLS for Refusal: Too soon Tadalafil 5 MG Oral Tablet (Cialis) 90 Tab*3 Si daily for lower urinary tract symptoms FILL PRESCRIBEDRefused By: Susan MILLS for Refusal: Too soon------ documented in this encounter Plan of Treatment Upcoming Encounters Date Type Department Care Team (Late st Contact Info) Description 10/17/2024 9:30 AM EST Imaging Radiology [address] 132 [facility] [place] [address] 11/12/2024 1:45 PM EST Office Visit Urology, [facility] 132 [facility] [place] [address] Man Odonnell MD [address] [place] [phone] 04/10/2025 1:00 PM EDT Office Visit Orthopaedics Spine Surgery, [facility] 132 [facility] [place] [address] Dinesh Reilly MD [address] [place] [...] unspecified documented in this encounter Care Teams Exhibitions And Collections Manager Relationship Specialty Start Date End Date Arthur Ng DO [address] [place] [address] PCP - General Family Medicine 11/20/19 documented as of this encounter
--- OUTSIDE RECORDS SUMMARY | 2024-12-03 04:51 | External Medical Summary | Summary of Care ---
Author Name Unknown Organization [facility] Address [address] [place] [address] Phone [phone] Care Team Providers Care Colloid Mill Operator Name Role Phone NgCuongArthurruben Duvalmirlande Primary Care Provider Reason for Visit * Reason Comments Outpatient Testing Encounter Details Date Type Department Care Team (Late st Contact Info) Description 09/17/2024 9:10 AM EST Laboratory Laboratory, [facility] [address] [place] [phone] [facility] [address] [place] [address] Essential hypertension with goal blood pressure less than 140/90; Dyslipidemia, goal LDL below 130; Type 2 diabetes mellitus without complication, without long-term current use of insulin ([facility]); Hypomagnesemia; Hypogonadism in male; B12 deficiency; Benign prostatic hyperplasia with lower urinary tract symptoms, symptom details unspecified Allergies Active Allergy Reactions Criticality Noted Date Comments Amoxicillin-Pot Clavulanate Diarrhea Low 06/18/20 14 Metaxalone 06/18/1998 Skelexin-numbness and tingling, itching Percodan 10/12/1997 GI upset Sulfa Antibiotics 10/28/2002 rash documented as of this encounter (statuses as of 09/17/2024) Medications aspirin enteric coated 81 MG TBEC [...] complication, without long-term current use of insulin ([facility]) Use as directed 4 times a day as needed for Hyperglycemia (high sugar). Use up to four times a day as directed 100 Each 11 05/20/20 20 Active Glucose Blood (ONETOUCH VERIO) STRPIndications:Ty pe 2 diabetes mellitus without complication, without long-term current use of insulin ([facility]) Use up to 4 times a day E11.9 100 Strip 11 05/20/20 20 Active Ondansetron 4 MG Oral Tablet Disintegrating (Zofran)Indication s:Nausea Place 1 Tablet on tongue every 8 hours as needed for Nausea. dissolve on tongue. 20 Tablet 03/20/20 23 Active Tamsulosin HCl 0.4 MG Oral Capsule (Flomax) Take 1 Capsule by mouth in the morning. 90 Capsule 3 03/10/20 24 Active Multi-Vitamin Oral Tablet Take 1 Tablet [...] complication, without long-term current use of insulin ([facility]) Take 1 Tablet by mouth [...] In the morning.. 90 Tablet 1 07/17/20 Active Omeprazole 20 MG Oral Capsule Delayed Release (PriLOSEC) Take 1 Capsule by mouth in the morning. 90 Capsule 1 07/17/20 24 Active HYDROcodone-Acetam inophen 5-325 MG Oral TabletIndications: Pain Take 1 Tablet by mouth 3 times a day as needed (for pain). 90 Tablet 08/21/20 24 Active Sertraline HCl 100 MG Oral Tablet (Zoloft)Indication s:Moderate episode of recurrent major depressive disorder (HCC) Take 1 Tablet by mouth in the morning. 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 06/20/2002 Erectile Dysfunction 08/12/1998 documented as of this encounter (statuses as of 09/17/2024) Resolved Problems Problem Noted Date Diagnosed Date [...] as of this encounter (statuses as of 09/17/2024) Immunizations Name Administration Dates Next Due COVID-19 mRNA, LNP-s, No Pre serve, 2-Dose Series ([employer]) 07/30/2021,02/09/2021,01/26/2021,01/10,12/20/2020 COVID-19, MRNA-LNP, 24-25, P R, 30MCG/0.3ML, IM, 12YRS AND ABOVE (Odimax) 08/05/2024 COVID-19, MRNA-LNP, PF, 30 M CG/0.3 mL, 12 YRS AND ABOVE, IM ([employer]) 08/08/2023 Covid-19, Mrna, Lnp-s, Pf, B ivalent, 30 Mcg, IM, 12 yrs and above ([employer]) 01/19/2023 DTaP Dipth/Tet/Acell Pertussis (Infanrix), Peds 10/22/2006 [...] Description 10/17/2024 9:30 AM EST Imaging Radiology [facility] 1st [facility] [address] [address] 04/10/2025 1:00 PM EDT Office Visit Orthopaedics Spine Surgery, [facility] [address] [address] Dinesh Reilly MD [address] [place] [address] Pending Results Name Type Priority Associated Diagnoses Date /Time CBC WITH WBC DIFFERENTIAL Lab Routine Essential hypertension with goal blood pressure less than 140/90 09/17/2024 8:57 AM EST COMPREHENSIVE METABOLIC PANEL Lab Routine Dyslipidemia, goal LDL below 130 09/17/2024 8:57 AM EST HEMOGLOBIN A1C Lab Routine Type 2 diabetes mellitus without complication, without long-term current use of insulin (HCC) 09/17/2024 8:57 AM EST LIPID PANEL WITH DIRECT LDL IF TG IS HIGH Lab Routine Dyslipidemia, goal LDL below 130 09/17/2024 8:57 AM EST MAGNESIUM Lab Routine Hypomagnesemia 09/17/2024 8:57 AM EST TESTOSTERONE: TOTAL, FREE AND BIOAVAILABLE Lab Routine Hypogonadism in male 09/17/2024 8:57 AM EST VITAMIN B12 Lab Routine B12 deficiency 09/17/2024 8:57 AM EST PSA WITH FREE PSA IF INDICATED Lab Routine Benign prostatic hyperplasia with lower urinary tract symptoms, symptom details unspecified 09/17/2024 8:57 AM EST CBC Lab Routine Essential hypertension with goal blood pressure less than 140/90 09/17/2024 8:57 AM EST DIFFERENTIAL, AUTOMATED Lab Routine Essential hypertension with goal blood pressure less than 140/90 09/17/2024 8:57 AM EST ALBUMIN / CREATININE RATIO, URINE Lab Routine Type 2 diabetes mellitus without complication, without long-term current use of insulin (HCC) Essential hypertension with goal blood pressure less than 140/90 09/17/2024 9:03 AM EST Scheduled Procedures Name Priority Associated Diagnoses Date/Ti me COLONOSCOPY FLEXIBLE PROXIMA L DIAGNOSTIC Recall Family history of colon cancer Health Maintenance Due Date Last Done Comments Cologuard 1994 Sigmoidoscopy 1994 Adult Wellness Visit 2015 Fecal Occult Blood Test 10/23/2019 10/23/2018, 08/17 Depression Monitoring 01/24/2024 01/23/2023 B-12 08/21/2024 08/21/2023, 04/0 01/2023, 07/24/2022, Additional history exists COVID-19 Vaccine ( season) 2024 08/05/2024, 08/08/2023, 01/19/2023, Additional history exists HbA1c 11/01/2024 05/01/2024, 07/24, 01/23/2023, Additional history exists Diabetic Foot Exam 12/24/2024 12/25/2023, 0 01/23/2023, 03/09/2022, Additional history exists Diabetic Eye Exam 12/30/2024 12/31/2023, , 05/07/2023, Additional history exists Albumin/Creatinine Ratio 05/01/2025 024, 08/21/2023, 08/13/2023, Additional history exists GFR 05/01/2025 05/01/2024, 07/24, 01/23/2023, Additional history exists Colonoscopy 05/10/2026 05/10/2021, 04/22, 03/01/2016, Additional history exists Colorectal Cancer Screening 05/10/2026 Lipid Panel 05/01/2029 05/01/2024, 07/24, 01/23/2023, Additional history exists DTap/Tdap Vaccines (5 - [...] as of this encounter Visit Diagnoses Diagnosis Essential hypertension with goal blood pressure less than 140/90 Dyslipidemia, goal LDL below 130 Other and unspecified hyperlipidemia Type 2 diabetes mellitus without complication, without long-term current use of insulin (HCC) Hypomagnesemia Disorders of magnesium metabolism Hypogonadism in male B12 deficiency Other B-complex deficiencies Benign prostatic hyperplasia with lower urinary tract symptoms, symptom details unspecified documented in this encounter Care Teams Colloid Mill Operator Relationship Specialty Start Date End Date Arthur Ng DO [address] [place] [address] PCP - General Family Medicine 11/20/19 documented as of this encounter
--- OUTSIDE RECORDS SUMMARY | 2024-12-03 04:51 | External Medical Summary | Summary of Care ---
Author Name Unknown Organization [facility] Address [address] [place] [address] Phone [phone] Care Team Providers Care Consulting Solution Manager Name Role Phone Arthur Ng DO Primary Care Provider Reason for Visit * Reason Onset Date Comments Medication Refill 09/20/2024 Encounter Details Date Type Department Care Team (Late st Contact Info) Description 09/20/2024 Refill Family Practice [facility] [address] [place] [address] Arthur Ng DO [address] [place] [address] Benign prostatic hyperplasia with lower urinary tract [...] 05/07/20 17 Active Blood Glucose Monitoring Suppl (Quellan VERIO) w/Device KITIndications:Typ e 2 diabetes mellitus [...] by mouth in the morning. 90 Capsule 03/10/20 24 Active Multi-Vitamin Oral Tablet Take 1 Tablet by mouth in the morning. 90 Tablet 03/26/20 24 Active Betamethasone Dipropionate Aug 0.05 % External Ointment (Diprolene)Indicat ions:Dermatitis Apply to affected area twice a day, do not use for more than 2 weeks at a time 50 g 3 04/17/20 24 Active metFORMIN HCl ER 500 MG Oral Tablet Extended Release 24 Hour (Glucophage XR)Indications:Typ e 2 diabetes mellitus without complication, without long-term current use of insulin ([facility]) Take 1 Tablet by mouth [...] morning. 90 Tablet 3 09/17/20 24 Active documented as of this encounter [...] back to 5-15 CPAP 8-[address] [place] Essential hypertension with goal blood [...] mRNA, LNP-s, No Pre serve, 2-Dose Series ([email or web address]) 07/30/2021,02/09/2021,01/26/2021,01/10,12/20/2020 COVID-19, MRNA-LNP, 24-25, P R, 30MCG/0.3ML, IM, 12YRS AND ABOVE ([employer]) 08/05/2024 COVID-19, MRNA-LNP, PF, 30 M CG/0.3 mL, 12 YRS AND ABOVE, IM ([employer]) 08/08/2023 Covid-19, Mrna, Lnp-s, Pf, B ivalent, 30 Mcg, IM, 12 yrs and above ([email or web address]) 01/19/2023 DTaP Dipth/Tet/Acell Pertussis (Infanrix), Peds 10/22/2006 [...] encounter Miscellaneous Notes * Telephone Encounter - Ivette Starks RP - 09/22/2024 9:23 AM EST Refused Prescriptions: Disp Refills Tadalafil 5 MG Oral Tablet (Cialis) 90 Tab*3 Si daily for lower urinary tract symptoms FILL PRESCRIBEDRefused By: IVETTE STARKS for Refusal: Too soon documented in this encounter Plan of Treatment Upcoming Encounters Date Type Department Care Team (Late st Contact Info) Description 10/17/2024 9:30 AM EST Imaging Radiology [facility] 1st [facility] [address] [place] [address] 04/10/2025 1:00 PM EDT Office Visit Orthopaedics Spine Surgery, [facility] [address] [place] [address] Dinesh Reilly MD [address] [place] [...] as of this encounter Visit Diagnoses Diagnosis Benign prostatic hyperplasia with lower urinary tract symptoms, symptom details unspecified documented in this encounter Care Teams Consulting Solution Manager Relationship Specialty Start Date End Date Arthur Ng DO [address] [place] [address] PCP - General Family Medicine 11/20/19 documented as of this encounter
--- OUTSIDE RECORDS SUMMARY | 2024-12-03 04:51 | External Medical Summary ---
Author Name Unknown Address Unknown Organization [id number]:[facility]ATORY [facility] - [address] [place] [address] Laboratory Report Ordering Provider Test Date Status COREY ROMAN 09/17/2024 09:03:44 Final Normal: <30 mg/g creatinine< br/>High: 30-300 mg/g creatinine
Very High: >300 mg/g creatinine
Nephrotic: >2200 mg/g creatinine Observation Date Value Abnormality Reference (Units ) Status Albumin, Urine 09/17/2024 09:03:44 <1.20 (mg/dL) Final Creatinine, Urine 09/17/2024 09:03:44 189 (mg/dL) Final Albumin/Creatinine [Mass Ratio] in Urine 09/17/2024 09:03:44 <6 <30 (mg/g Creat) Final Performing Location LAB[facility]ORY [facility] - [address] [place] [address]
--- OUTSIDE RECORDS SUMMARY | 2024-12-03 04:51 | External Medical Summary | Summary of Care ---
Author Name Unknown Organization [facility] Address [address] [place] [address] Phone [phone] Care Team Providers Care Lead Trainer Name Role Phone NgCuongArthurruben Duvalmirlande Primary Care Provider Reason for Visit * Reason Comments Outpatient Testing Encounter Details Date Type Department Care Team (Late st Contact Info) Description 09/17/2024 9:10 AM EST Laboratory Laboratory, [facility] [address] [place] [phone] [facility] [address] [place] [address] Essential hypertension with goal blood pressure less than 140/90; Dyslipidemia, goal LDL below 130; Type 2 diabetes mellitus without complication, without long-term current use of insulin ([facility]); Hypomagnesemia; Hypogonadism in male; B12 deficiency; Benign [...] long-term current use of insulin ([facility]) Use as directed 4 times a day as needed for Hyperglycemia (high sugar). Use up to four times a day as directed 100 Each 11 05/20/20 20 Active Glucose Blood (ONETOUCH VERIO) STRPIndications:Ty pe 2 diabetes mellitus without complication, without long-term current use of insulin ([facility]) Use up to 4 times a [...] long-term current use of insulin ([facility]) Take 1 Tablet by mouth 2 [...] back to 5-15 CPAP 8-15 RDI 15.4 [place] [facility] Patient Essential hypertension with goal blood [...] mRNA, LNP-s, No Pre serve, 2-Dose Series ([employer]) 07/30/2021,02/09/2021,01/26/2021,01/10,12/20/2020 COVID-19, MRNA-LNP, 24-25, P R, 30MCG/0.3ML, IM, 12YRS AND ABOVE ([employer]) 08/05/2024 COVID-19, MRNA-LNP, PF, 30 M CG/0.3 mL, 12 YRS AND ABOVE, IM ([employer]) 08/08/2023 Covid-19, Mrna, Lnp-s, Pf, B ivalent, 30 Mcg, IM, 12 yrs and above ([employer]) 01/19/2023 DTaP Dipth/Tet/Acell Pertussis (Infanrix), Peds 10/22/2006 [...] Description 10/17/2024 9:30 AM EST Imaging Radiology [facility]st [facility] [address] [address] 04/10/2025 1:00 PM EDT Office Visit Orthopaedics Spine Surgery, [facility] [address] [address] Dinesh Reilly MD [address] [place] [address] Pending Results Name Type Priority Associated Diagnoses [...] unspecified documented in this encounter Care Teams Lead Trainer Relationship Specialty Start Date End Date Arthur Ng DO [address] [place] [address] PCP - General Family Medicine 11/20/19 documented as of this encounter
--- OUTSIDE RECORDS SUMMARY | 2024-12-03 04:51 | External Medical Summary ---
Author Name Unknown Address Unknown Organization [id number]:[facility] - [address] [place] [address] Laboratory Report Ordering Provider Test Date Status COREY ROMAN 09/17/2024 08:57:43 Final Observation Date Value Abnormality Reference (Units ) Status Vitamin B12 09/17/2024 08:57:43 [id number] (pg/mL) Final Performing Location LABORATORY [facility] - [address] [place] [address]
--- OUTSIDE RECORDS SUMMARY | 2024-12-03 04:51 | External Medical Summary | Summary of Care ---
Author Name Unknown Organization [facility] Address [address] [place] [address] Phone [phone] Care Team Providers Care Flight Controls Engineer Name Role Phone Arthur Ng DO Primary Care Provider Reason for Referral * Precert (Within 10 days (routine)) - Authorized Specialty Diagnoses / Procedures Referred By Francisco Javier villarreal Referred To Contact Radiology Diagnoses Cognitive impairment Procedures MRI BRAIN MEMORY COGNITION WO CONTRAST Arthur Ng DO [address] [facility] [address] Phone: tel: fax: Referral ID Status Reason Start Date Expiration Date V isits Requested Visits Authorized [id number] Authorized 09/17/2024 999 999 * Evaluate & Treat - Unlimited Visits (Within 10 days (routine)) - Authorized Specialty Diagnoses / Procedures Referred By Francisco Javier villarreal Referred To Contact Psychiatry / Psychology Diagnoses Cognitive impairment Arthur Ng DO [address] [place] [address] Phone: tel: fax: Referral ID Status Reason Start Date Expiration Date Visits Requested Visits Authorized [id number] Authorized Specialty Services Required 4 999 999 Question Answer Referral Priority Within 10 days (routine) Where should this appointment be scheduled? [facility] Is this referral for medication management? No What condition is this patient being seen for? Mild Cognitive Impairment/Mild Neurocognitive Disorder Does the patient have SEVERE cognitive impairment on bedside screeners? (MoCA/MMSE <= 10) No Comments Neuropsychological evaluations are INTERACTIVE and use materials that require a patient to SEE, HEAR, and often WRITE. If a patient is unable to engage in this way, neurocognitive assessment may be abbreviated or deemed inappropriate. Please use caution in establishing expectations with your patient, and note any limitations in the comments section of the referral order. Reason for Visit * Reason Comments Physical-Exam Neurological; Increa sing loss of memory, both short and fdc. Memory gaps and speach and expressive aphasia Encounter Details Date Type Department Care Team (Late st Contact Info) Description 09/17/2024 8:20 AM EST Office Visit [facility] [address] [place] [id number] Arthur Ng DO [address] [place] [address] Type 2 diabetes mellitus without complication, without long-term current use of insulin (HCC)*; Dyslipidemia, goal LDL below 130; Controlled substance agreement signed; Essential hypertension with goal blood pressure less than 140/90; Sacroiliitis, not elsewhere classified (HCC); Moderate episode of recurrent major depressive disorder (HCC); Uncomplicated asthma, unspecified asthma severity, unspecified whether persistent; Hypogonadism in male; Hypomagnesemia; Cognitive impairment; B12 deficiency; Benign prostatic hyperplasia with lower urinary tract symptoms, symptom details unspecified; HTN, goal below 140/90; Diabetes mellitus without complication (HCC) Allergies Active Allergy Reactions Criticality Noted Date Comments Amoxicillin-Pot Clavulanate Diarrhea Low 06/18/20 14 Metaxalone 06/18/1998 Skelexin-numbness and tingling, itching Percodan 10/12/1997 GI upset Sulfa Antibiotics 10/28/2002 rash documented as of this encounter (statuses as of 09/17/2024) Medications aspirin enteric coated 81 MG TBEC Take 1 Tablet by mouth in the morning. 017 Active Blood Glucose Monitoring Suppl (ONETOUCH VERIO) w/Device KITIndications:Ty pe 2 diabetes mellitus without complication, without long-term current use of insulin (HCC) Use up to 4 times a day E11.9 1 Kit 020 Active OneTouch UltraSoft Lancets MISCIndications:T ype 2 diabetes mellitus without complication, without long-term current use of insulin (HCC) Use as directed 4 times a day as needed for Hyperglycemia (high sugar). Use up to four times a day as directed 100 Each 11 Active Glucose Blood (ONETOUCH VERIO) STRPIndications:T ype 2 diabetes mellitus without complication, without long-term current use of insulin (HCC) Use up to 4 times a day E11.9 100 Strip 11 Active Ondansetron 4 MG Oral Tablet Disintegrating (Zofran)Indicatio ns:Nausea Place 1 Tablet on tongue every 8 hours as needed for Nausea. dissolve on tongue. 20 Tablet 023 Active Tamsulosin HCl 0.4 MG Oral Capsule (Flomax) Take 1 Capsule by mouth in the morning. 90 Capsule 3 024 Active Multi-Vitamin Oral Tablet Take 1 Tablet [...] evening meals. 180 Tablet 3 024 Active Tadalafil 5 MG Oral Tablet (Cialis)Indicatio ns:Benign prostatic hyperplasia with lower urinary tract symptoms, symptom details unspecified 1 daily for lower urinary tract symptoms FILL PRESCRIBED 90 Tablet 3 024 Active Testosterone 50 MG/5GM (1%) Transdermal GelIndications:Hy pogonadism in male Apply 5 grams in the morning to the shoulders or upper arms. 300 g 5 024 Active Cyclobenzaprine HCl 5 MG Oral Tablet (Flexeril)Indicat ions:DDD (degenerative disc disease), cervical Take 1 Tablet by mouth at bedtime as needed for Muscle spasms. 30 Tablet 024 Active Atorvastatin Calcium 40 MG Oral Tablet (Lipitor)Indicati ons:Dyslipidemia, goal to be determined Take 1 Tablet by mouth in the morning. In the morning.. 90 Tablet 1 024 Active Omeprazole 20 MG Oral Capsule Delayed Release (PriLOSEC) Take 1 Capsule by mouth in the morning. 90 Capsule 1 024 Active HYDROcodone-Aceta minophen 5-325 MG Oral TabletIndications :Pain Take 1 Tablet by mouth 3 times a day as needed (for pain). 90 Tablet 024 Active Sertraline HCl 100 MG Oral Tablet (Zoloft)Indicatio ns:Moderate episode of recurrent major depressive disorder (HCC) Take 1 Tablet by mouth in the morning. 90 Tablet 3 024 Active Lisinopril-hydroC HLOROthiazide 20-12.5 MG Oral TabletIndications :HTN, goal below 140/90,Diabetes mellitus without complication (HCC) take 1/2 tablet by mouth daily 45 Tablet 3 024 2023 Discontinued Sertraline HCl 50 MG Oral Tablet (Zoloft)Indicatio ns:HTN, goal below 140/90 Take 1 Tablet by mouth in the morning. In the morning.. 90 Tablet 3 024 2023 Discontinued Lisinopril 10 MG Oral Tablet (Prinivil)Indicat ions:Essential hypertension with goal blood pressure less than 140/90 Take 1 Tablet by mouth in the morning. 90 Tablet 3 024 2023 Discontinued Metoprolol Succinate ER 25 MG Oral Tablet Extended Release 24 Hour (toPROL XL)Indications:Es sential hypertension with goal blood pressure less than 140/90 Take 1 Tablet by mouth in the morning. 90 Tablet 3 024 2023 Discontinued documented as of this encounter (statuses [...] back to 5-15 CPAP 8-15 RDI 15.4 [facility] Essential hypertension with goal blood [...] mRNA, LNP-s, No Pre serve, 2-Dose Series (SignStorey) 07/30/2021,02/09/2021,01/26/2021,01/10,12/20/2020 COVID-19, MRNA-LNP, 24-25, P R, 30MCG/0.3ML, IM, 12YRS AND ABOVE [facility] 08/05/2024 COVID-19, MRNA-LNP, PF, 30 M CG/0.3 mL, 12 YRS AND ABOVE, IM (PFIZER-Comirnaty) 08/08/2023 Covid-19, Mrna, Lnp-s, Pf, B ivalent, [...] Sign Reading Time Taken Comments Blood Pressure 124/70 09/17/2024 8:14 AM EST Pulse 70 09/17/2024 8:14 AM EST Temperature 36.7 C (98 F) 09/17/2024 8:14 AM EST Respiratory Rate - - Oxygen Saturation 95% 09/17/2024 8:14 AM EST Inhaled Oxygen Concentration - - Weight 78.8 kg (173 lb 12.8 oz) 09/17/2024 8:14 AM EST Height 167.6 cm (5' 6") 09/17/2024 8:14 AM EST Body Mass Index 28.05 09/17/2024 8:14 AM EST documented in this encounter Progress Notes * Arthur Ng, DO - 09/17/2024 8:19 AM EST Images from the original note were not included. Assessment and Plan Assessment & Plan Cognitive Impairment Reports difficulty maintaining train of thought, word finding difficulty, and occasional disorientation. Symptoms have been present since spring. No significant changes in activity level or sleep pattern. No balance issues reported. - Increase Sertraline to 100mg daily. - Schedule neuropsychological evaluation. - Order brain MRI to assess for any degenerative changes or plaque formation. -encourage good glycemic control, exercise and adequate sleep. Palpitations Reports rare palpitations, no correlation with cognitive symptoms. No current antihypertensive medication use as blood pressure is well controlled. - Monitor symptoms, no change in medication at this time. Weight Loss Significant weight loss from 216lbs to current weight in the 170s. Reports decreased appetite, and lack of intentional dieting. - Encourage maintenance of current weight if stable. Bowel Movements Reports daily bowel movements, occasional loose stools. - Continue current management. DMII Labs today Continue metformin And monitor Nocturia Reports variable frequency, sometimes waking up every 1.5 hours to urinate. - Check PSA levels. Testosterone Replacement Therapy Continues to apply 5g daily to shoulders and upper arms. - Continue current regimen. General Health Maintenance - Continue physical activity as tolerated. 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 Memory gaps and speach and expressive aphasia /) History of Present Illness The patient, with a past medical history of transient global amnesia, presents with cognitive issues that have been worsening since spring. He reports difficulty maintaining a train of thought, word-finding trouble, and occasional disorientation. The patient also describes an irregular heartbeat that occurs sporadically, but is becoming more frequent. He has not been on an EKG during these episodes. The patient also reports urinary issues, with frequency varying from sleeping through the night to waking up every hour and a half to urinate. The patient has been losing weight unintentionally, dropping from 216 lbs to the 160s. He reports adecrease in appetite but has not been actively trying to lose weight. The patient's sleep pattern has been irregular, with him often feeling tired early in the evening and waking up between 4 and 5 in the morning. The patient remains physically active, currently working on a large [employer] project. Physical Exam Vitals: 09/17/24 0814 Temp: 98 F (36.7 C) Pulse: 70 SpO2: 95% BP: 124/70 BMI: 28.07 Physical Exam Vitals and nursing note reviewed. Constitutional: Appearance: Normal appearance. HENT: Head: Normocephalic and atraumatic. Right Ear: Tympanic membrane, ear canal and external ear normal. There is no impacted cerumen. Left Ear: Tympanic membrane, ear canal and external ear normal. There is no impacted cerumen. Nose: Nose normal. Mouth/Throat: Mouth: Mucous membranes are moist. Pharynx: Oropharynx is clear. Eyes: Extraocular Movements: Extraocular movements intact. Conjunctiva/sclera: Conjunctivae normal. Pupils: Pupils are equal, round, and reactive to light. Cardiovascular: Rate and Rhythm: Normal rate and regular rhythm. Heart sounds: Normal heart sounds. Pulmonary: Effort: Pulmonary effort is normal. Breath sounds: Normal breath sounds. Abdominal: General: Abdomen is flat. Palpations: Abdomen is soft. Musculoskeletal: General: Normal range of motion. Cervical back: Normal range of motion and neck supple. Lymphadenopathy: Cervical: No cervical adenopathy. Skin: General: Skin is warm and dry. Neurological: General: No focal deficit present. Mental Status: He is alert and oriented to person, place, and time. Sensory: No sensory deficit. Motor: No weakness. Gait: Gait normal. Wrap-Up Follow-up: Return in about 6 months (around 03/17/2025). | Check-out note: Every 6 months or as close to it as possible - he prefers to stick with me Time: Total time today was 42 minutes excluding any time spent in the performance of separately billed services. Text in this note was generated using an [employer] documentation service. I discussed the use of a device to record and summarize our discussion today. All persons present during the encounter consented to its use. documented in this encounter Nursing Notes * Anupama Foster LPN - 09/17/2024 8:14 AM EST The patient has been properly identified by confirmation of name and date of . Chief Complaint Patient presents with Physical-Exam Neurological; Increasing loss of memory, both short and fdc. Memory gaps and speach and expressive aphasia documented in this encounter Plan of Treatment Upcoming Encounters Date Type Department Care Team (Late st Contact Info) Description 09/17/2024 9:10 AM EST Laboratory Laboratory, [facility] [address] [facility] [place] [phone] [facility] [facility] [address] [facility] [place] [address] Essential hypertension with goal blood pressure less than 140/90; Dyslipidemia, goal LDL below 130; Type 2 diabetes mellitus without complication, without long-term current use of insulin (HCC); Hypomagnesemia; Hypogonadism in male; B12 deficiency; Benign prostatic hyperplasia with lower urinary tract symptoms, symptom details unspecified 10/17/2024 9:30 AM EST Imaging Radiology [facility] [place] [address] [place] [id number] 04/10/2025 1:00 PM EDT Office Visit Orthopaedics Spine Surgery, [facility] [address] [place] [address] Dinesh Reilly MD [address] [place] [phone] Pending Results Name Type Priority Associated Diagnoses Date /Time CBC WITH WBC DIFFERENTIAL Lab Routine Essential hypertension with goal blood pressure less than 140/90 09/17/2024 8:57 AM EST COMPREHENSIVE METABOLIC PANEL Lab Routine Dyslipidemia, goal LDL below 130 09/17/2024 8:57 AM EST HEMOGLOBIN A1C Lab Routine Type 2 diabetes mellitus without complication, without long-term current use of insulin (HCC) 09/17/2024 8:57 AM EST ALBUMIN / CREATININE RATIO, URINE Lab Routine Type 2 diabetes mellitus without complication, without long-term current use of insulin ([facility]) Essential hypertension with goal blood pressure less than 140/90 09/17/2024 9:03 AM EST LIPID PANEL WITH DIRECT LDL [...] symptom details unspecified 09/17/2024 8:57 AM EST Scheduled Orders Name Type Priority Associated Diagnoses Orde r Schedule CBC WITH WBC DIFFERENTIAL Lab Routine Essential hypertension with goal blood pressure less than 140/90 Expected: 09/17/2024 (Approximate), Expires: 09/17/2025 COMPREHENSIVE METABOLIC PANEL Lab Routine Dyslipidemia, goal LDL below 130 Expected: 09/17/2024 (Approximate), Expires: 09/17/2025 HEMOGLOBIN A1C Lab Routine Type 2 diabetes mellitus without complication, without long-term current use of insulin (HCC) Expected: 09/17/2024 (Approximate), Expires: 09/17/2025 ALBUMIN / CREATININE RATIO, URINE Lab Routine Type 2 diabetes mellitus without complication, without long-term current use of insulin (HCC) Essential hypertension with goal blood pressure less than 140/90 Expected: 09/17/2024 (Approximate), Expires: 09/17/2025 LIPID PANEL WITH DIRECT LDL IF TG IS HIGH Lab Routine Dyslipidemia, goal LDL below 130 Expected: 09/17/2024, Expires: 09/17/2025 MAGNESIUM Lab Routine Hypomagnesemia Expected: 09/17/2024 (Approximate), Expires: 09/17/2025 TESTOSTERONE: TOTAL, FREE AND BIOAVAILABLE Lab Routine Hypogonadism in male Expected: 09/17/2024 (Approximate), Expires: 09/17/2025 VITAMIN B12 Lab Routine B12 deficiency Expected: 09/17/2024 (Approximate), Expires: 09/17/2025 PSA WITH FREE PSA IF INDICATED Lab Routine Benign prostatic hyperplasia with lower urinary tract symptoms, symptom details unspecified Expected: 09/17/2024 (Approximate), Expires: 09/17/2025 MRI BRAIN MEMORY COGNITION WO CONTRAST Medical Imaging Routine Cognitive impairment Expected: 09/17/2024, Expires: 10/17/2025 Scheduled Procedures Name Priority Associated Diagnoses Date/Ti me COLONOSCOPY FLEXIBLE PROXIMA L DIAGNOSTIC Recall Family history of colon cancer Scheduled Referrals Name Type Priority Associated Diagnoses Order Schedule ADULT/PEDS NEUROPSYCHOLOGY REFERRAL OP Referral Within 10 days (routine) Cognitive impairment Ordered: 09/17/2024 Health Maintenance Due Date Last Done Comments [...] complication, without long-term current use of insulin (HCC)- Primary Dyslipidemia, goal LDL below 130 Other and unspecified hyperlipidemia Controlled substance agreement signed Encounter for long-term (current) use of other medications Essential hypertension with goal blood pressure less than 140/90 Sacroiliitis, not elsewhere classified (HCC) Sacroiliitis, not elsewhere classified Moderate episode of recurrent major depressive disorder (HCC) Uncomplicated asthma, unspecified asthma severity, unspecified whether persistent Hypogonadism in male Hypomagnesemia Disorders of magnesium metabolism Cognitive impairment Unspecified persistent mental disorders due to conditions classified elsewhere B12 deficiency Other B-complex deficiencies Benign prostatic hyperplasia with lower urinary tract symptoms, symptom details unspecified HTN, goal below 140/90 Unspecified essential hypertension Diabetes mellitus without complication (HCC) Type II or unspecified type diabetes mellitus without mention of complication, not stated as uncontrolled Essential hypertension with goal blood pressure less than 140/90 Dyslipidemia, goal LDL below 130 Other and unspecified hyperlipidemia Type 2 diabetes mellitus without complication, without long-term current use of insulin (HCC) Hypomagnesemia Disorders of magnesium metabolism Hypogonadism in male B12 deficiency Other B-complex deficiencies Benign prostatic hyperplasia with lower urinary tract symptoms, symptom details unspecified documented in this encounter Care Teams Flight Controls Engineer Relationship Specialty Start Date End Date Arthur Ng DO [address] [place] [address] PCP - General Family Medicine 11/20/19 documented as of this encounter
--- OUTSIDE RECORDS SUMMARY | 2024-12-03 04:52 | External Medical Summary | Summary of Care ---
Author Name Unknown Organization [facility] Address [address] [place] [address] Phone [phone] Care Team Providers Care Rail Transportation Operator Name Role Phone Arthur Ng Primary Care Provider Reason for Visit * Reason Onset Date Comments Medication Refill 08/19/2024 Encounter Details Date Type Department Care Team (Late st Contact Info) Description 08/19/2024 Refill Family Practice [facility] [address] [place] [address] Sruthi Garcia CRNP [address] [place] [address] Pain Allergies Active Allergy Reactions Criticality Noted Date Comments Amoxicillin-Pot Clavulanate Diarrhea Low 06/18/20 14 Metaxalone 06/18/1998 Skelexin-numbness and tingling, itching Percodan 10/12/1997 GI upset Sulfa Antibiotics 10/28/2002 rash documented as of this encounter (statuses as of 08/21/2024) Medications Medication Sig Dispensed Refills Start Date End Date Status aspirin enteric coated 81 MG TBEC Take 1 Tablet by mouth in the morning. 7 Active Blood Glucose Monitoring Suppl ([employer] VERIO) w/Device KITIndications:Type 2 diabetes mellitus without complication, without long-term current use of insulin (HCC) Use up to 4 times a day E11.9 1 Kit 0 Active OneTouch UltraSoft Lancets MISCIndications:Typ e 2 diabetes mellitus without complication, without long-term current use of insulin ([facility]) Use as directed 4 times a day as needed for Hyperglycemia (high sugar). Use up to four times a day as directed 100 Each 11 0 Active Glucose Blood (ONETOUCH VERIO) STRPIndications:Typ e 2 diabetes mellitus without complication, without long-term current use of insulin ([facility]) Use up to 4 times a day E11.9 100 Strip 11 0 Active Ondansetron 4 MG Oral Tablet Disintegrating (Zofran)Indications :Nausea Place 1 Tablet on tongue every 8 hours as needed for Nausea. dissolve on tongue. 20 Tablet 3 Active Lisinopril-hydroCHL OROthiazide 20-12.5 MG Oral TabletIndications:H TN, goal below 140/90,Diabetes mellitus without complication (HCC) take 1/2 tablet by mouth daily 45 Tablet 3 4 Active Tamsulosin HCl 0.4 MG Oral Capsule (Flomax) Take 1 Capsule by mouth in the morning. 90 Capsule 3 4 Active Multi-Vitamin Oral Tablet Take 1 Tablet by mouth in the morning. 90 Tablet 3 4 Active Betamethasone Dipropionate Aug 0.05 % External Ointment (Diprolene)Indicati ons:Dermatitis Apply to affected area twice a day, do not use for more than 2 weeks at a time 50 g 3 4 Active metFORMIN HCl ER 500 MG Oral Tablet Extended Release 24 Hour (Glucophage XR)Indications:Type 2 diabetes mellitus without complication, without long-term current use of insulin ([facility]) Take 1 Tablet by mouth 2 times a day with morning and evening meals. 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 300 g 5 4 Active Cyclobenzaprine HCl 5 MG Oral Tablet (Flexeril)Indicatio ns:DDD (degenerative disc disease), cervical Take 1 Tablet by mouth at bedtime as needed for Muscle spasms. 30 Tablet 4 Active Sertraline HCl 50 MG Oral Tablet (Zoloft)Indications :HTN, goal below 140/90 Take 1 Tablet by mouth in the morning. In the morning.. 90 Tablet 3 4 Active Atorvastatin Calcium 40 MG Oral Tablet (Lipitor)Indication s:Dyslipidemia, goal to be determined Take 1 Tablet by mouth in the morning. In the morning.. 90 Tablet 1 4 Active Omeprazole 20 MG Oral Capsule Delayed Release (PriLOSEC) Take 1 Capsule by mouth in the morning. 90 Capsule 1 4 Active HYDROcodone-Acetami nophen 5-325 MG Oral TabletIndications:P ain Take 1 Tablet by mouth 3 times a day as needed (for pain). 90 Tablet 4 Active HYDROcodone-Acetami nophen 5-325 MG Oral TabletIndications:P ain Take 1 Tablet by mouth 3 times a day as needed (for pain). 90 Tablet 4 08/19/20 24 Discontinu ed(Refill) documented as of this encounter (statuses as of 08/21/2024) Active Problems Problem Noted Date Diagnosed Date [...] Family history of malignant neoplasm of colon Overview: brother Family history of malignant neoplasm of prostate 10/29/2018 Overview: brother Controlled substance agreement signed 09/06/2017 Benign localized prostatic h yperplasia with lower urinary tract symptoms (LUTS) 01/23/2017 Dyslipidemia, goal LDL below 130 10/08/2012 Moderate obstructive sleep apnea 11/14/2011 Overview: 03/29/12 -- change back to 5-15 CPAP 8-15 RDI 15.4 [place] [facility] Essential hypertension with goal blood pressure less than 140/90 06/11/2008 Insomnia 11/13/2006 Overview: ICD-10 update of inactive term 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 06/20/2002 Erectile Dysfunction 08/12/1998 documented as of this encounter (statuses as of 08/21/2024) Resolved Problems Problem Noted Date Diagnosed Date Resolved Date Moderate episode of recurren t major depressive disorder 07/20/2022 08/21/2023 Diabetes mellitus 07/20/2022 10/18/2022 Hx of adenomatous colonic polyps 04/17/2019 03/25/2020 Overview: Historical. Preoperative cardiovascular examination 10/08/2012 11/14/2012 Shortness of breath 04/29/2012 11/14/19 13 Other chest pain 04/29/2012 10/08/2012 Bacterial pneumonia 12/07/2011 11/14/19 13 Adenomatous polyp of colon 12/30/2010 0 04/17/2019 Acute bronchitis, complicated 10/18/2010 11/18/2010 Dyslipidemia, goal to be determined 10/07/2009 10/08/2012 Overview: Per Lipid Taxonomy. Type 2 diabetes mellitus 02/27/200701/2020 Overview: Duplicate. ADVANCE DIRECTIVE INFORMATION 11/13/2006 03/25/2020 Overview: No, Advance Directive brochure offered , patient declined. Historical. Major depression, single episode 11/13/2006 03/02/2021 TESTICULAR HYPOFUNC NEC 05/15/200510/23 FAMILY HX-GI MALIGNANCY 04/21/200501/2020 Overview: Historical. ADHESIVE CAPSULIT SHLDER 10/12/1997 Back disorder 11/13/2006 PURE HYPERCHOLESTEROLEM 09/21 Overview: Per Lipid Taxonomy. PULSATILE TINNITUS Overview: Acute. Adenomatous colon polyp 03/23 Overview: 2mm sessile documented as of this encounter (statuses as of 08/21/2024) Immunizations Name Administration Dates Next Due COVID-19 mRNA, LNP-s, No Pre serve, 2-Dose Series ([employer]) 07/30/2021,02/09/2021,01/26/2021,01/10,12/20/2020 COVID-19, MRNA-LNP, 24-25, P R, 30MCG/0.3ML, IM, 12YRS AND ABOVE ([employer]) 08/05/2024 COVID-19, MRNA-LNP, PF, 30 M CG/0.3 mL, 12 YRS AND ABOVE, IM ([employer]) 08/08/2023 Covid-19, Mrna, Lnp-s, Pf, B ivalent, 30 Mcg, IM, 12 yrs and above ([employer]) 01/19/2023 DTaP Dipth/Tet/Acell Pertussis (Infanrix), Peds 10/22/2006 [...] No 03/26/2024 Does the household have a [facility] source of income? (Household - for [...] Assigned at Male 11/20/2019 2:07 PM EST Gender Identity Male 11/20/2019 2:07 PM EST Sexual Orientation Straight 11/20/2019 2: 07 PM EST Job Start Date Occupation Industry Not on file Not on file Not on file documented as of this encounter Miscellaneous Notes * Telephone Encounter - Lakia Holman MD - 08/21/2024 12:48 PM EDT Signed Prescriptions: Disp Refills HYDROcodone-Acetaminophen 5-325 MG Oral Ta*90 Tab*0 Sig: Take 1 Tablet by mouth 3 times a day as needed (for pain).Authorizing Provider: LAKIA HOLMAN----- * Telephone Encounter - Lakia Holman MD - 08/21/2024 12:47 PM EDT I have reviewed the patient's controlled substance dispensing history in the Prescription Drug Monitoring Program in compliance with the [facility] regulations before prescribing a controlled substance. * Telephone Encounter - Eugene Fair [facility] - 08/20/2024 6:00 PM EDTPending Prescriptions: Disp Refills HYDROcodone-Acetaminophen 5-325 MG Oral Ta*90 Tab*0 Sig: Take 1 Tablet by mouth 3 times a day as needed (for pain). * Telephone Encounter - Eugene Fair [facility] - 08/20/2024 5:59 PM EDT I have reviewed the patients controlled substance dispensing history in the Prescription Drug Monitoring Program in compliance with the [facility] regulations before prescribing a controlled substance. PDMP checked on 08/20/2024. Pending Prescriptions: Disp Refills HYDROcodone-Acetaminophen 5-325 MG Oral Ta*90 Tab*0 Sig: Take 1 Tablet by mouth 3 times a day as needed (for pain). Last Visit: 05/01/2024 (in office), Visit date not found (telemedicine) Next Visit: Visit date not found Date medication was last filled: 07-18-24 Date medication is due for refill: 08-16-24 Pharmacy: [id number] Is this request for a controlled substance? and Urine Drug Screen Not completed Toxicology [...] in Results Review. Please approve if appropriate. Nate Worrell.Ph. Clinical Pharmacist Centralized Clinical Pharmacy Services ([facility]) [address] [place] [address], [address] [place] [address] MC: [phone] 08/20/2024,5:59 PM documented in this encounter Plan of Treatment Upcoming Encounters Date Type Department Care Team (Late st Contact Info) Description 04/10/2025 1:00 PM EDT [facility] [address] [facility] [place] [address] Dinesh Reilly MD [address] [place] [phone] Scheduled Procedures Name Priority Associated Diagnoses Date/Ti [...] pain documented in this encounter Care Teams Rail Transportation Operator Relationship Specialty Start Date End Date Arthur Ng DO [address] [place] [address] PCP - General Family Medicine 11/20/19 documented as of this encounter
--- OUTSIDE RECORDS SUMMARY | 2024-12-03 04:52 | External Medical Summary ---
Author Name Unknown Address Unknown Organization [id number]:[facility] [place] [address] - [address] [place] [address] Laboratory Report Ordering Provider Test Date Status COREY ROMAN 09/17/2024 08:57:43 Final Observation Date Value Abnormality Reference (Units ) Status WBC, Total 09/17/2024 08:57:43 8.89 4.00-10.8 0 (K/uL) Final RBC 09/17/2024 08:57:43 4.54 4.50-5.25 (M/uL) Final Hemoglobin 09/17/2024 08:57:43 13.7 Below low normal 14 .0-16.8 (g/dL) Final HCT 09/17/2024 08:57:43 41.1 40.0-48.4 (%) Final MCV 09/17/2024 08:57:43 90.5 82.0-99.5 (fL) Final MCH 09/17/2024 08:57:43 30.2 27.0-34.0 (pg) Final MCHC 09/17/2024 08:57:43 33.3 32.0-36.0 (g/dL) Final RDW 09/17/2024 08:57:43 12.4 11.5-15.5 (%) Final Platelets 09/17/2024 08:57:43 213 140-400 (K /uL) Final MPV 09/17/2024 08:57:43 9.3 6.6-11.1 ( fL) Final Performing Location [facility]ORY [facility] [place] [facility] [place] [id number]
--- OUTSIDE RECORDS SUMMARY | 2024-12-03 04:52 | External Medical Summary ---
Author Name Unknown Address Unknown Organization K01:[facility] [place] [address] [place] [address] Laboratory Report Ordering Provider Test Date Status COREY ROMAN 09/17/2024 08:57:43 Final Observation Date Value Abnormality Reference (Units ) Status PSA 09/17/2024 08:57:43 7.78 Above high normal <4 .10 (ng/mL) Final Performing Location [facility] [place] [address] [place] [address]
--- OUTSIDE RECORDS SUMMARY | 2024-12-03 04:52 | External Medical Summary | Summary of Care ---
Author Name Unknown Organization [facility] Address [address] [place] [address] Phone [phone] Care Team Providers Care Hadoop Engineer Name Role Phone Jessie Ng DO Primary Care Provider Reason for Visit * Reason Onset Date Comments Medication Refill 07/16/2024 Encounter Details Date Type Department Care Team (Late st Contact Info) Description 07/16/2024 Refill Family Practice [facility] [address] [place] [address] Jessie Ng DO [address] [place] [address] HTN, goal below 140/90; Dyslipidemia, goal to be determined; Pain Allergies Active Allergy Reactions Criticality Noted Date Comments Amoxicillin-Pot Clavulanate Diarrhea Low 06/18/20 14 Metaxalone 06/18/1998 Skelexin-numbness and tingling, itching Percodan 10/12/1997 GI upset Sulfa Antibiotics 10/28/2002 rash documented as of this encounter (statuses as of 07/18/2024) Medications Medication Sig Dispensed Refills Start Date End Date Status aspirin enteric coated 81 MG TBEC Take 1 Tablet by mouth in the morning. 7 Active Blood Glucose Monitoring Suppl ([employer] VERIO) w/Device KITIndications:Type 2 diabetes mellitus without [...] needed (for pain). 90 Tablet 4 Active Sertraline HCl 50 MG Oral Tablet (Zoloft)Indications :HTN, goal below 140/90 take 1 tablet by mouth every morning 90 Tablet 3 4 07/16/20 24 Discontinu ed(Refill) Atorvastatin Calcium 40 MG Oral Tablet (Lipitor)Indication s:Dyslipidemia, goal to be determined TAKE 1 TABLET BY MOUTH EVERY MORNING 90 Tablet 1 4 07/16/20 24 Discontinu ed(Refill) Omeprazole 20 MG Oral Capsule Delayed Release (PriLOSEC) Take 1 Capsule by mouth in the morning. 90 Capsule 1 4 07/16/20 24 Discontinu ed(Refill) HYDROcodone-Acetami nophen 5-325 MG Oral TabletIndications:P ain Take 1 Tablet by mouth 3 times a day as needed (for pain). 90 Tablet 4 07/16/20 24 Discontinu ed(Refill) documented as of this encounter (statuses as of 07/18/2024) Active Problems Problem Noted Date Diagnosed Date [...] back to 5-15 CPAP 8-15 RDI 15.4 [place] Patient Essential hypertension with goal blood pressure less than 140/90 06/11/2008 Insomnia 11/13/2006 Overview: ICD-10 update of inactive term 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 06/20/2002 Erectile Dysfunction 08/12/1998 documented as of this encounter (statuses as of 07/18/2024) Resolved Problems Problem Noted Date Diagnosed Date [...] as of this encounter (statuses as of 07/18/2024) Immunizations Name Administration Dates Next Due COVID-19 mRNA, LNP-s, No Pre serve, 2-Dose Series ([employer]) 07/30/2021,02/09/2021,01/26/2021,01/10,12/20/2020 COVID-19, MRNA-LNP, 23-24, P F, 30 MCG/0.3 mL, 12 YRS AND ABOVE, IM ([employer]) 08/08/2023 Covid-19, Mrna, Lnp-s, Pf, B ivalent, 30 Mcg, IM, 12 yrs and above ([employer]) 01/19/2023 DTaP Dipth/Tet/Acell Pertussis (Infanrix), Peds 10/22/2006 Pneumococcal Conjugate Vacc, 13 Valent (Prevnar) 10/21/2015 Pneumococcal Polysaccharide PPV23 (Pneumovax) 07/13/2016 RSV Vac., Bivalent, Perfusio n F, Pf,0.5 Ml (Abrysvo) 08/23/2023 Season Influenza, Quad, PF, Adjuvanted, 65+ Yrs, IM (FLUAD) 07/04/2023,07/11/2022,06/22/2020 Seasonal Influenza Virus Vac cine, Unspecified Formulation 06/22/2021,06/22/2020,06/27/2019,06/27,07/06/2017,07/19/2015,08/05/2014 ,07/22/2013,07/22/2012,07/22/2011,07/22 Seasonal Influenza, PF, 6 M & above, IM , (FluLaval or Fluzone) 06/27/2018 Seasonal Influenza, Quadriva lent, No Preserve, IM 07/19/2015 Seasonal Influenza, Recombin ant, Trivalent, PF (Flublock) 07/31/2016 Seasonal Influenza, Trivalen t, (IIV3), PF, (Fluzone) 07/22/2011,07/31/2010 Seasonal Influenza, Trivalen t, (IIV3), with Preserv, (Fluzone) 07/06/2017,08/05/2014,07/22/2013,07/22 Seasonal Influenza, Trivalen t, Adjuvanted, 65+ YRS, [...] encounter Miscellaneous Notes * Telephone Encounter - Sruthi Merlos CRNP - 07/18/2024 1:24 PM EDTSigned Prescriptions: Disp Refills Sertraline HCl 50 MG Oral Tablet (Zoloft) 90 Tab*3 Sig: Take 1 Tablet by mouth in the morning. In the morning..Authorizing Provider: JESSIE NG User: DURACAITLIN Atorvastatin Calcium 40 MG Oral Tablet (Li*90 Tab*1 Sig: Take 1 Tablet by mouth in the morning. In the morning..Authorizing Provider: JESSIE NG User: DURACAITLIN Omeprazole 20 MG Oral Capsule Delayed Rele*90 Cap*1 Sig: Take 1 Capsule by mouth inthe morning.Authorizing Provider: JESSIE NG User: WOLF MILLSHA HYDROcodone-Acetaminophen 5-325 MG Oral Ta*90 Tab*0 Sig: Take 1 Tablet by mouth 3 times a day as needed (for pain).A uthorizing Provider: SRUTHI MERLOS * Telephone Encounter - Lina Caitlin, [facility] - 07/17/2024 11:00 AM EDTPending Prescriptions: Disp Refills HYDROcodone-Acetaminophen 5-325 MG Oral Ta*90 Tab*0 Sig: Take 1 Tablet by mouth 3 times a day as needed (for pain). Signed Prescriptions: Disp Refills Sertraline HCl 50 MG Oral Tablet (Zoloft) 90 Tab*3 Sig: Take 1 Tablet by mouth in the morning. In the morning.. Authorizing Provider: JESSIE NG User: DURACAITLIN Atorvastatin Calcium 40 MG Oral Tablet (Li*90 Tab*1 Sig: Take 1 Tablet by mouth in the morning. In the morning.. Authorizing Provider: JESSIE NG User: DURA, CAITLIN Omeprazole 20 MG Oral Capsule Delayed Rele*90 Cap*1 Sig: Take 1 Capsule by mouth in the morning. Authorizing Provider: JESSIE NG User : [email or web address] * Telephone Encounter - Caitlin Mills RPh - 07/17/2024 10:58 AM EDT I have reviewed the patients controlled substance dispensing history in the Prescription Drug Monitoring Program in compliance with the [facility] regulations before prescribing a controlled substance. PDMP checked on 07/17/2024. Pending Prescriptions: Disp Refills Sertraline HCl 50 MG Oral Tablet (Zoloft) 90 Tab*3 Sig: Take 1 Tablet by mouth in the morning. In the morning.. Atorvastatin Calcium 40 MG Oral Tablet (L*90 Tab*1 Sig: Take 1 Tablet by mouth in the morning. In the morning.. Omeprazole 20 MG Oral Capsule Delayed Rel*90 Cap*1 Sig: Take 1 Capsule by mouth in the morning. HYDROcodone-Acetaminophen 5-325 MG Oral T*90 Tab*0 Sig: Take 1 Tablet by mouth 3 times a day as needed (for pain). Last Visit: 05/01/2024 (in office), Visit date not found (telemedicine) Next Visit: Visit date not found Date medication was last filled: 06/16/24 Date medication is due for refill: 07/15/24 Pharmacy: [id number] [address] [facility] Is this request for a controlled [...] in Results Review. Please approve if appropriate. ThanksCaitlin PharmD Clinical Pharmacist Centralized Clinical Pharmacy Services ([facility]) [phone] 07/17/2024, 10:58 AM documented in this encounter Plan of Treatment Upcoming Encounters Date Type Department Care Team (Late st Contact Info) Description 04/10/2025 1:00 PM EDT [facility] [address] [facility] [place] [address] Dinesh Reilly MD [address] [place] [id number] Scheduled Procedures Name Priority Associated Diagnoses Date/Ti me COLONOSCOPY FLEXIBLE PROXIMA L DIAGNOSTIC Recall Family history of colon cancer Health Maintenance Due Date Last Done Comments Cologuard 1994 Sigmoidoscopy 1994 Adult Wellness Visit 2015 Fecal Occult Blood Test 10/23/2019 10/23/2018, 08/17 Depression Monitoring 01/24/2024 01/23/2023 COVID-19 Vaccine ( season) 2024 08/08/2023, 01/19/2023, 02/26/2022, Additional history exists Influenza Vaccine (FLU shot) (#1) 2024 07/04/2023, 07/11/2022, 06/22/2021, Additional history exists B-12 08/21/2024 08/21/2023, 04/0 01/2023, 07/24/2022, Additional history exists HbA1c 11/01/2024 05/01/2024, 07/24, [...] Discontinued 05/10/2021, 05/10/2021, 03/01/2016, Additional history exists HPV (Gardasil) Vaccine Aged [...] as of this encounter Visit Diagnoses Diagnosis HTN, goal below 140/90 Unspecified essential hypertension Dyslipidemia, goal to be determined Other and unspecified hyperlipidemia Pain Generalized pain documented in this encounter Care Teams Hadoop Engineer Relationship Specialty Start Date End Date Jessie Ng DO [address] [place] [address] PCP - General Family Medicine 11/20/19 documented as of this encounter
--- OUTSIDE RECORDS SUMMARY | 2024-12-03 04:52 | External Medical Summary ---
Author Name Unknown Address Unknown Organization K0G:[facility] [place] [address] - [address] [place] [address] Laboratory Report Ordering Provider Test Date Status COREY ROMAN 09/17/2024 08:57:43 Final Observation Date Value Abnormality Reference (Units ) Status BUN 09/17/2024 08:57:43 22 Above high normal 6-20 (mg/dL) Final Creatinine 09/17/2024 08:57:43 0.8 0.6-1.2 (mg/dL) Final Glomerular filtration rate/1.73 sq M.predicted [Volume Rate/Area] in Serum, Plasma or Blood by Creatinine-based formula (CKD-EPI) 09/17/2024 08:57:43 >90 >=60 (mL/min) Final eGFR is calculated based on the CKD-EPI 2020 equation. Sodium 09/17/2024 08:57:43 141 135-146 (m mol/L) Final Potassium 09/17/2024 08:57:43 4.5 3.5-5.1 (m mol/L) Final Cl 09/17/2024 08:57:43 101 98-107 (mm ol/L) Final CO2 09/17/2024 08:57:43 30 22-32 (mmo l/L) Final Anion gap 09/17/2024 08:57:43 10 7-15 (mmol /L) Final Glucose 09/17/2024 08:57:43 161 Above high normal 70 -120 (mg/dL) Final Albumin 09/17/2024 08:57:43 4.5 3.8-5.0 (g /dL) Final AST (Aspartate aminotransferase) 09/17/2024 08:57:43 23 10-50 (U/L) Fin al Alk Phos 09/17/2024 08:57:43 97 35-130 (U/ L) Final Bilirubin, Total 09/17/2024 08:57:43 0.4 <=1 .2 (mg/dL) Final Calcium 09/17/2024 08:57:43 9.9 8.4-10.2 ( mg/dL) Final Protein 09/17/2024 08:57:43 6.8 6.0-8.3 (g /dL) Final ALT (Alanine aminotransferase) 09/17/2024 08:57:43 24 10-50 (U/L) Parth clark Performing Location [facility] [place] [facility] - [address] [facility] [address]
--- OUTSIDE RECORDS SUMMARY | 2024-12-03 04:52 | External Medical Summary ---
Author Name Unknown Address Unknown Organization K01:[facility]AT[facility] - [address] [place] [address] Laboratory Report Ordering Provider Test Date Status COREY ROMAN 09/17/2024 08:57:43 Final Observation Date Value Abnormality Reference (Units ) Status Magnesium 09/17/2024 08:57:43 1.7 1.5-2.6 (m g/dL) Final Performing Location LABORATORY [facility] - [address] [place] [address]
--- OUTSIDE RECORDS SUMMARY | 2024-12-03 04:52 | External Medical Summary | Summary of Care ---
Author Name Unknown Organization [facility] Address [address] [place] [address] Phone [phone] Care Team Providers Care Informatica Architect Name Role Phone Arthur Ng Primary Care Provider Reason for Visit * Reason Onset Date Comments Medication Administration 08/01/2024 Flu an d/or Pneumo Inj Encounter Details Date Type Department Care Team (Late st Contact Info) Description 08/01/2024 12:20 PM EDT Immunization Ancillary [facility] [address] [facility] [place] [address] [facility] [address] [facility] [place] [address] Need for prophylactic vaccination and inoculation against influenza* Allergies Active Allergy Reactions Criticality Noted Date Comments Amoxicillin-Pot Clavulanate Diarrhea Low 06/18/20 14 Metaxalone 06/18/1998 Skelexin-numbness and tingling, itching Percodan 10/12/1997 GI upset Sulfa Antibiotics 10/28/2002 rash documented as of this encounter (statuses as of 08/01/2024) Medications Medication Sig Dispensed Refills Start Date End Date Status aspirin enteric coated 81 MG TBEC Take 1 Tablet by mouth in the morning. 05/07/2017 Active Blood Glucose Monitoring Suppl (HiWired VERIO) w/Device KITIndications:Type 2 diabetes mellitus without complication, without long-term current use of insulin (HCC) Use up to 4 times a day E11.9 1 Kit 05/20/2020 Active OneTouch UltraSoft Lancets MISCIndications:Type 2 diabetes mellitus without complication, without long-term current use of insulin (HCC) Use as directed 4 times a day as needed for Hyperglycemia (high sugar). Use up to four times a day as directed 100 Each 11 05/20/2020 Active Glucose Blood (ONETOUCH VERIO) STRPIndications:Type 2 diabetes mellitus without complication, without long-term current use of insulin (HCC) Use up to 4 times a day E11.9 100 Strip 11 05/20/2020 Active Ondansetron 4 MG Oral Tablet Disintegrating (Zofran)Indications: Nausea Place 1 Tablet on tongue every 8 hours as needed for Nausea. dissolve on tongue. 20 Tablet 03/20/2023 Active Lisinopril-hydroCHLO ROthiazide 20-12.5 MG Oral TabletIndications:HT N, goal below 140/90,Diabetes mellitus without complication (HCC) take 1/2 tablet by mouth daily 45 Tablet 3 12/07/2023 Active Tamsulosin HCl 0.4 MG Oral Capsule (Flomax) Take 1 Capsule by mouth in the morning. 90 Capsule 3 03/10/2024 Active Multi-Vitamin Oral Tablet Take 1 Tablet by mouth in the morning. 90 Tablet 3 03/26/2024 Active Betamethasone Dipropionate Aug 0.05 % External Ointment (Diprolene)Indicatio ns:Dermatitis Apply to affected area twice a day, do not use for more than 2 weeks at a time 50 g 3 04/17/2024 Active metFORMIN HCl ER 500 MG Oral Tablet Extended Release 24 Hour (Glucophage XR)Indications:Type 2 diabetes mellitus without complication, without long-term current use of insulin (HCC) Take 1 Tablet by mouth 2 times a day with morning and evening meals. 180 Tablet 3 06/16/2024 Active Tadalafil 5 MG Oral Tablet (Cialis)Indications: Benign prostatic hyperplasia with lower urinary tract symptoms, symptom details unspecified 1 daily for lower urinary tract symptoms FILL PRESCRIBED 90 Tablet 3 06/16/2024 Active Testosterone 50 MG/5GM (1%) Transdermal GelIndications:Hypog onadism in male Apply 5 grams in the morning to the shoulders or upper arms. 300 g 5 06/16/2024 Active Cyclobenzaprine HCl 5 MG Oral Tablet (Flexeril)Indication s:DDD (degenerative disc disease), cervical Take 1 Tablet by mouth at bedtime as needed for Muscle spasms. 30 Tablet 06/16/2024 Active Sertraline HCl 50 MG Oral Tablet (Zoloft)Indications: HTN, goal below 140/90 Take 1 Tablet by mouth in the morning. In the morning.. 90 Tablet 3 07/17/2024 Active Atorvastatin Calcium 40 MG Oral Tablet (Lipitor)Indications :Dyslipidemia, goal to be determined Take 1 Tablet by mouth in the morning. In the morning.. 90 Tablet 1 07/17/2024 Active Omeprazole 20 MG Oral Capsule Delayed Release (PriLOSEC) Take 1 Capsule by mouth in the morning. 90 Capsule 1 07/17/2024 Active HYDROcodone-Acetamin ophen 5-325 MG Oral TabletIndications:Pa in Take 1 Tablet by mouth 3 times a day as needed (for pain). 90 Tablet 07/18/2024 Active documented as of this encounter (statuses as of 08/01/2024) Active Problems Problem Noted Date Diagnosed Date [...] back to 5-15 CPAP 8-15 RDI 15.4 [place] Essential hypertension with goal blood pressure less than 140/90 06/11/2008 Insomnia 11/13/2006 Overview: ICD-10 update of inactive term 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 06/20/2002 Erectile Dysfunction 08/12/1998 documented as of this encounter (statuses as of 08/01/2024) Resolved Problems Problem Noted Date Diagnosed Date [...] 09/21 Overview: Per Lipid Taxonomy. PULSATILE TINNITUS 06/04/202 0 Overview: Acute. Adenomatous colon polyp 03/23 Overview: 2mm sessile documented as of this encounter (statuses as of 08/01/2024) Immunizations Name Administration Dates Next Due COVID-19 mRNA, LNP-s, No Pre serve, 2-Dose Series ([employer]) 07/30/2021,02/09/2021,01/26/2021,01/10,12/20/2020 COVID-19, MRNA-LNP, 23-24, P F, 30 MCG/0.3 mL, 12 YRS AND ABOVE, IM ([employer]) 08/08/2023 Covid-19, Mrna, Lnp-s, Pf, B ivalent, 30 Mcg, IM, 12 yrs and above ([employer]) 01/19/2023 DTaP Dipth/Tet/Acell Pertussis (Infanrix), Peds 10/22/2006 [...] on file documented as of this encounter Patient Instructions * Patient Instructions* Jenny Tarango LPN - 08/01/2024 12:21 PM EDT ~~PATIENT INSTRUCTIONS FOR FLU SHOT~~ Possible side effects of influenza vaccine, (flu shot), are usually mild and include: 1. Soreness or redness at injection site 2. Low grade fever 3. Body aches You may use Tylenol/Acetaminophen as needed for these symptoms. LET YOUR DOCTOR KNOW IMMEDIATELY IF YOU HAVE DIFFICULTY BREATHING OR SWALLOWING, EXPERIENCE ITCHINGOF FEET OR HANDS, HAVE SWELLING OF EYES, FACE OR INSIDE OF NOSE. documented in this encounter Progress Notes * Jenny Tarango LPN - 08/01/2024 12:20 PM EDT PRE - ADMINISTRATION DOCUMENTATION Are you experiencing any cold symptoms or fever? No Have you had Guillain-Miramonte Syndrome (an illness that causes paralysis) within the last 6 weeks? No Have you had the flu shot in the past? YES Have you ever had a reaction to the flu shot? No Jenny Tarango LPN, 08/01/2024 12:20 PM Immunization Administration Documentation Time Out Procedure Performed: Yes Patient Identified (Ask Name/Date of ): Yes Does the patient have a fever greater than 101 degrees today? No Patient allergic to latex? No VFC Stock: No Immunization(s) verified: Yes, Immunization Name: Flu, VIS Sheet(s) given: Yes Verified Side and Site: Yes Verified Shot(s) with Parent(s)/Patient: Yes documented in this encounter Plan of Treatment Upcoming Encounters Date Type Department Care Team (Late st Contact Info) Description 08/05/2024 3:15 PM EDT Immunization [facility] [address] [place] [address] Jessie Alcantaraid19 [facility] [address] [place] [address] 04/10/2025 1:00 PM EDT Office Visit Orthopaedics Spine Surgery, [facility] [address] [place] [address] Dinesh Reilly MD [address] [place] [address] Scheduled Procedures Name Priority Associated Diagnoses Date/Ti me COLONOSCOPY FLEXIBLE PROXIMA L DIAGNOSTIC Recall Family history of colon cancer Health Maintenance Due Date Last Done Comments Cologuard 1994 Sigmoidoscopy 1994 Adult Wellness Visit 2015 Fecal Occult Blood Test 10/23/2019 10/23/2018, 08/17 Depression Monitoring 01/24/2024 01/23/2023 COVID-19 Vaccine ( season) 2024 08/08/2023, 01/19/2023, 02/26/2022, Additional history exists B-12 08/21/2024 08/21/2023, 04/0 [...] exists Influenza Vaccine (FLU shot) Completed 08/01/2024, 07/04/2023, 07/11/2022, Additional history exists HPV (Gardasil) Vaccine Aged [...] as of this encounter Visit Diagnoses Diagnosis Need for prophylactic vaccination and inoculation against influenza- Primary documented in this encounter Care Teams Informatica Architect Relationship Specialty Start Date End Date Arthur Ng DO [address] [place] [address] PCP - General Family Medicine 11/20/19 documented as of this encounter
--- OUTSIDE RECORDS SUMMARY | 2024-12-03 04:52 | External Medical Summary | Summary of Care ---
Author Name Unknown Organization [facility] Address [address] [place] [address] Phone [phone] Care Team Providers Care Whiskey Filterer Name Role Phone Jessie Ng DO Primary Care Provider Reason for Visit * Reason Onset Date Comments Medication Refill 06/13/2024 Encounter Details Date Type Department Care Team (Late st Contact Info) Description 06/13/2024 Refill Family Practice [facility] [address] [place] [address] Jessie Ng DO [address] [place] [address] Type 2 diabetes mellitus without complication, without long-term current use of insulin (HCC); Benign prostatic hyperplasia with lower urinary tract symptoms, symptom details unspecified; Hypogonadism in male; DDD (degenerative disc disease), cervical Allergies Active Allergy Reactions Criticality Noted Date Comments Amoxicillin-Pot Clavulanate Diarrhea Low 06/18/20 14 Metaxalone 06/18/1998 Skelexin-numbness and tingling, itching Percodan 10/12/1997 GI upset Sulfa Antibiotics 10/28/2002 rash documented as of this encounter (statuses as of 06/16/2024) Medications Medication Sig Dispensed Refills Start Date End Date Status aspirin enteric coated 81 MG TBEC Take 1 Tablet by mouth in the morning. 7 Active Blood Glucose Monitoring Suppl (ONETOUCH VERIO) w/Device KITIndications:Type 2 diabetes mellitus without [...] mouth daily 45 Tablet 3 4 Active Sertraline HCl 50 MG Oral Tablet (Zoloft)Indications :HTN, goal below 140/90 take 1 tablet by mouth every morning 90 Tablet 3 4 Active Tamsulosin HCl 0.4 [...] a time 50 g 3 4 Active Atorvastatin Calcium 40 MG Oral Tablet (Lipitor)Indication s:Dyslipidemia, goal to be determined TAKE 1 TABLET BY MOUTH EVERY MORNING 90 Tablet 1 4 Active Omeprazole 20 MG Oral Capsule Delayed Release (PriLOSEC) Take 1 Capsule by mouth in the morning. 90 Capsule 1 4 Active HYDROcodone-Acetami nophen 5-325 MG Oral TabletIndications:P ain Take 1 Tablet by mouth 3 times a day as needed (for pain). 90 Tablet 4 Active metFORMIN HCl ER 500 MG [...] for Muscle spasms. 30 Tablet 4 Active metFORMIN HCl ER 500 MG Oral Tablet Extended Release 24 Hour (Glucophage XR)Indications:Type 2 diabetes mellitus without complication, without long-term current use of insulin (HCC) take 1 tablet by mouth IN THE MORNING and 1 tablet by mouth BEFORE BEDTIME 180 Tablet 3 3 06/13/20 24 Discontinu ed(Refill) Tadalafil 5 MG Oral Tablet (Cialis)Indications :Benign prostatic hyperplasia with lower urinary tract symptoms, symptom details unspecified 1 daily for lower urinary tract symptoms FILL PRESCRIBED 90 Tablet 1 4 06/13/20 24 Discontinu ed(Refill) Testosterone 50 MG/5GM (1%) Transdermal GelIndications:Hypo gonadism in male Apply 5 grams in the morning to the shoulders or upper arms. 300 g 5 4 06/13/20 24 Discontinu ed(Refill) Cyclobenzaprine HCl 5 MG Oral Tablet (Flexeril)Indicatio ns:DDD (degenerative disc disease), cervical Take 1 Tablet by mouth at bedtime as needed for Muscle spasms. 30 Tablet 4 06/13/20 24 Discontinu ed(Refill) documented as of this encounter (statuses as of 06/16/2024) Active Problems Problem Noted Date Diagnosed Date [...] back to 5-15 CPAP 8-15 RDI 15.4 [place] Patient Essential hypertension with goal blood pressure less than 140/90 06/11/2008 Insomnia 11/13/2006 Overview: ICD-10 update of inactive term 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 06/20/2002 Erectile Dysfunction 08/12/1998 documented as of this encounter (statuses as of 06/16/2024) Resolved Problems Problem Noted Date Diagnosed Date [...] as of this encounter (statuses as of 06/16/2024) Immunizations Name Administration Dates Next Due COVID-19 mRNA, LNP-s, No Pre serve, 2-Dose Series ([employer]) 07/30/2021,02/09/2021,01/26/2021,01/10,12/20/2020 COVID-19, MRNA-LNP, 23-24, P F, 30 MCG/0.3 mL, 12 YRS AND ABOVE, IM ([employer]) 08/08/2023 Covid-19, Mrna, Lnp-s, Pf, B ivalent, 30 Mcg, IM, 12 yrs and above ([employer]) 01/19/2023 DTaP Dipth/Tet/Acell Pertussis (Infanrix), Peds 10/22/2006 [...] Preserve, IM 07/19/2015 Seasonal Influenza, Recombin ant, RIV3, No Preserve 07/31/2016 Seasonal Influenza, Split, I IV3, No Preserve, Inj 07/22/2011,07/31/2010 Seasonal Influenza, Split, I IV3, With Preserve, Inj 07/06/2017,08/05/2014,07/22/2013,07/22 Seasonal Influenza, Trivalen t, Adjuvanted, 65+ yrs 06/20/2019,06/27/2018 TD, Preservative Free 07/13/2016 TDAP (age [...] No 03/26/2024 Does the household have a [facility] source of income? (Household - for ages [...] Telephone Encounter - Jessie Ng DO - 06/16/2024 10:51 AM EDT Signed Prescriptions: Disp Refills metFORMIN HCl ER 500 MG Oral Tablet Extend*180 Ta*3 Sig: Take 1 Tablet by mouth 2 times a day with morning and evening meals. Authorizing Provider: JESSIE NG Ordering User: DURA, MELYSSA Tadalafil 5 MG Oral Tablet (Cialis) 90 Tab*3 Si daily for lower urinary tract symptoms FILL PRESCRIBED Aut horizing Provider: JESSIE NG Ordering User: DURA MELYSSA Testosterone 50 MG/5GM (1%) Transdermal [id number] g 5 Sig: Apply 5 grams in the morning to the shoulders or upper arms. Authorizing Provider: JESSIE NG Cyclobenzaprine HCl 5 MG Oral Tablet (Flex*30 Tab*0 Sig: Take 1 Tablet by mouth at bedtime as needed for Muscle spasms. Authorizing Provider: JESSIE PERES Refused Prescriptions: Disp Refills Omeprazole 20 MG Oral Capsule Delayed Rele*90 Cap*1 Sig: Take 1 Capsule by mouth in the morning. Refused By: MELYSSA MILLS Reason for Refusal: Too soon * Telephone Encounter - Melyssa Mills, [facility] - 06/16/2024 9:44 AM EDTPending Prescriptions: Disp Refills Testosterone 50 MG/5GM (1%) Transdermal [id number] g 5 Sig: Apply 5 grams in the morning to the shoulders or upper arms. Cyclobenzaprine HCl 5 MG Oral Tablet (Flex*30 Tab*0 Sig: Take 1 Tablet by mouth at bedtime as needed for Muscle spasms. Signed Prescriptions: Disp Refills metFORMIN HCl ER 5 00 MG Oral Tablet Extend*180 Ta*3 Sig: Take 1 Tablet by mouth 2 times a day with morning and evening meals. Authorizing Provider: JESSIE NG Ordering User: DURA, MELYSSA Tadalafil 5 MG Oral Tablet (Cialis) 90 Tab*3 Si daily for lower urinary tract symptoms FILL PRESCRIBED Authorizing Provider: JESSIE NG Ordering User: MELYSSA MILLS Ref used Prescriptions: Disp Refills Omeprazole 20 MG Oral Capsule Delayed Rele*90 Cap*1 Sig: Take 1 Capsule by mouth in the morning. Refused By: MELYSSA MILLS Reason for Refusal: Too soon * Telephone Encounter - Melyssa Mills RPh - 06/16/2024 9:42 AM EDT I have reviewed the patients controlled substance dispensing history in the Prescription Drug Monitoring Program in compliance with the [facility] regulations before prescribing a controlled substance. PDMP checked on 06/16/2024. Pending Prescriptions: Disp Refills metFORMIN HCl ER 500 MG Oral Tablet Exten*180 Ta*3 Sig: Take 1 Tablet by mouth 2 times a day with morning and evening meals. Tadalafil 5 MG Oral Tablet (Cialis) 90 Tab*3 Si daily for lower urinary tract symptoms FILL PRESCRIBED Testosterone 50 MG/5GM (1%) Transdermal G*300 g 5 Sig: Apply 5 grams in the morning to the shoulders or upper arms. Cyclobenzaprine HCl 5 MG Oral Tablet (Fle*30 Tab*0 Sig: Take 1 Tablet by mouth at bedtime as needed for Muscle spasms. Omeprazole 20 MG Oral Capsule Delayed Rel*90 Cap*1 Sig: Take 1 Capsule by mouth in the morning. Last Visit: 05/01/2024 (in office), Visit date not found (telemedicine) Next Visit: Visit date not found Date medication was last filled: 05/16/24 Date medication is due for refill: 06/14/24 Pharmacy: [id number] Is this request for a controlled [...] in Results Review. Please approve if appropriate. ThanksMelyssa, PharmD Clinical Pharmacist [facility] ([facility]) [phone] 06/16/2024, 9:42 AM documented in this encounter Plan of Treatment Upcoming Encounters Date Type Department Care Team (Late st Contact Info) Description 06/30/2024 12:30 PM EDT Office Visit Otolaryngology [facility] [address] [place] [address] Bert Canela DO [address] [place] [address] 04/10/2025 1:00 PM EDT Office Visit Orthopaedics Spine Surgery, [facility] [address] [place] [address] Dinesh Reilly MD [address] [place] [address] Scheduled Procedures Name Priority Associated Diagnoses Date/Ti me COLONOSCOPY FLEXIBLE PROXIMA L DIAGNOSTIC Recall Family history of colon cancer Health Maintenance Due Date Last Done Comments Cologuard 1994 Sigmoidoscopy 1994 Adult Wellness Visit 2015 Fecal Occult Blood Test 10/23/2019 10/23/2018, 08/17 COVID-19 Vaccine ( season) 2023 08/08/2023, 01/19/2023, 02/26/2022, Additional history exists Depression Monitoring 01/24/2024 01/23/2023 Influenza Vaccine (FLU shot) (#1) 2024 07/04/2023, [...] 05/01/2029 05/01/2024, 07/24, 01/23/2023, Additional history exists DTaP,Tdap,and Td Vaccines (5 - Td or Tdap) 03/18/2034 [...] lower urinary tract symptoms, symptom details unspecified Hypogonadism in male DDD (degenerative disc disease), cervical Degeneration of cervical intervertebral disc documented in this encounter Care Teams Whiskey Filterer Relationship Specialty Start Date End Date Jessie Ng DO [address] [place] [address] PCP - General Family Medicine 11/20/19 documented as of this encounter
--- OUTSIDE RECORDS SUMMARY | 2024-12-03 04:52 | External Medical Summary | Summary of Care ---
Author Name Unknown Organization [facility] Address [address] [facility] [place] [address] Phone [phone] Care Team Providers Care Box Sealing Machine Feeder Name Role Phone Arthur gN DO Primary Care Provider Reason for Visit * Reason Onset Date Comments Health Maintenance 06/10/2024 Encounter Details Date Type Department Care Team (Late st Contact Info) Description 06/10/2024 Telephone Family Practice [facility] [address] [place] [address] Arthur Ng DO [address] [place] [address] Health Maintenance Allergies Active Allergy Reactions Criticality Noted Date Comments Amoxicillin-Pot Clavulanate Diarrhea Low 06/18/20 14 Metaxalone 06/18/1998 Skelexin-numbness and tingling, itching Percodan 10/12/1997 GI upset Sulfa Antibiotics 10/28/2002 rash documented as of this encounter (statuses as of 06/10/2024) Medications Medication Sig Dispensed Refills Start Date End Date Status aspirin enteric coated 81 MG TBEC Take 1 Tablet by mouth in the morning. 05/07/2017 Active Blood Glucose Monitoring Suppl (STYLHUNT VERIO) w/Device KITIndications:Type 2 diabetes mellitus without [...] dissolve on tongue. 20 Tablet 03/20/2023 Active metFORMIN HCl ER 500 MG Oral Tablet Extended Release 24 Hour (Glucophage XR)Indications:Type 2 diabetes mellitus without complication, without long-term current use of insulin (HCC) take 1 tablet by mouth IN THE MORNING and 1 tablet by mouth BEFORE BEDTIME 180 Tablet 3 07/10/2023 Active Lisinopril-hydroCHLO ROthiazide 20-12.5 MG Oral TabletIndications:HT N, goal below 140/90,Diabetes mellitus without complication (HCC) take 1/2 tablet by mouth daily 45 Tablet 3 12/07/2023 Active Tadalafil 5 MG Oral Tablet (Cialis)Indications: Benign prostatic hyperplasia with lower urinary tract symptoms, symptom details unspecified 1 daily for lower urinary tract symptoms FILL PRESCRIBED 90 Tablet 1 12/18/2023 Active Testosterone 50 MG/5GM (1%) Transdermal GelIndications:Hypog onadism in male Apply 5 grams in the morning to the shoulders or upper arms. 300 g 5 01/09/2024 Active Sertraline HCl 50 MG Oral Tablet (Zoloft)Indications: HTN, goal below 140/90 take 1 tablet by mouth every morning 90 Tablet 3 02/10/2024 Active Tamsulosin HCl 0.4 MG Oral Capsule (Flomax) Take 1 Capsule by mouth in the morning. 90 Capsule 3 03/10/2024 Active Multi-Vitamin Oral Tablet Take 1 Tablet by mouth in the morning. 90 Tablet 3 03/26/2024 Active Cyclobenzaprine HCl 5 MG Oral Tablet (Flexeril)Indication s:DDD (degenerative disc disease), cervical Take 1 Tablet by mouth at bedtime as needed for Muscle spasms. 30 Tablet 03/28/2024 Active Betamethasone Dipropionate Aug 0.05 % External Ointment (Diprolene)Indicatio ns:Dermatitis Apply to affected area twice a day, do not use for more than 2 weeks at a time 50 g 3 04/17/2024 Active Atorvastatin Calcium 40 MG Oral Tablet (Lipitor)Indications :Dyslipidemia, goal to be determined TAKE 1 TABLET BY MOUTH EVERY MORNING 90 Tablet 1 04/30/2024 Active Omeprazole 20 MG Oral Capsule Delayed Release (PriLOSEC) Take 1 Capsule by mouth in the morning. 90 Capsule 1 05/06/2024 Active HYDROcodone-Acetamin ophen 5-325 MG Oral TabletIndications:Pa in Take 1 Tablet by mouth 3 times a day as needed (for pain). 90 Tablet 05/16/2024 Active documented as of this encounter (statuses as of 06/10/2024) Active Problems Problem Noted Date Diagnosed Date [...] to 5-15 CPAP 8-[address] [place] [place] Patient Essential hypertension with goal blood pressure less than 140/90 06/11/2008 Insomnia 11/13/2006 Overview: ICD-10 update of inactive term 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 06/20/2002 Erectile Dysfunction 08/12/1998 documented as of this encounter (statuses as of 06/10/2024) Resolved Problems Problem Noted Date Diagnosed Date [...] NEC 05/15/200510/23 FAMILY HX-GI MALIGNANCY 04/21/2005 0601/2020 Overview: Historical. ADHESIVE CAPSULIT SHLDER 10/12/1997 Back disorder 11/13/2006 PURE HYPERCHOLESTEROLEM 09/21 Overview: Per Lipid Taxonomy. PULSATILE TINNITUS Overview: Acute. Adenomatous colon polyp 03/23 Overview: 2mm sessile documented as of this encounter (statuses as of 06/10/2024) Immunizations Name Administration Dates Next Due COVID-19 mRNA, LNP-s, No Pre serve, 2-Dose Series (T-ZONE) 07/30/2021,02/09/2021,01/26/2021,01/10,12/20/2020 COVID-19, MRNA-LNP, 23-24, P F, 30 MCG/0.3 mL, 12 YRS AND ABOVE, IM ([employer]) 08/08/2023 Covid-19, Mrna, Lnp-s, Pf, B ivalent, [...] encounter Miscellaneous Notes * Telephone Encounter - Lizeth Dahl LPN - 06/10/2024 2:47 PM EDT Care Gaps Comprehensive Care Outreach Last Office/Telemedicine Visit: 05/01/2024 (in office), Visit date not found (telemedicine) Next Office Visit: Visit date not found Hemoglobin AIC Results: Lab Results Component Value Date/Time HEMOGLOBIN A1C - [facility] 6.5 (H) 05/01/2024 03:20 PM HEMOGLOBIN A1C - [facility] 6.4 (H) 08/21/2023 08:43 AM HEMOGLOBIN A1C - [facility] 6.8 (H) 01/23/2023 08:56 AM HEMOGLOBIN A1C - [facility] 6.9 (H) 09/02/2020 10:29 AM HEMOGLOBIN A1C - [facility] 7.5 (H) 05/20/2020 08:57 AM HEMOGLOBIN A1C - [facility] 6.9 (H) 11/04/2019 10:19 AM BP Readings from Last 1 Encounters: 05/01/24 110/50 Reviewed Health Maintenance below: Health Maintenance Topic Date Due Adult Wellness Visit Never done COVID-19 Vaccine ( season) 2023 Depression Monitoring 01/24/2024 Influenza Vaccine (FLU shot) (1) 06/22/2024 B-12 08/21/2024 Ov april Awv lab Care Gap Outreach Action Taken: Unable to reach won't ring through documented in this encounter Plan of Treatment Upcoming Encounters Date Type Department Care Team (Late st Contact Info) Description 06/30/2024 12:30 PM EDT Office Visit Otolaryngology [facility] [address] [place] [address] Bert Canela DO [address] [place] [address] 04/10/2025 1:00 PM EDT Office Visit Orthopaedics Spine Surgery, [facility] [address] [place] [address] Dinesh Reilly MD [address] [place] [address] Scheduled Procedures Name Priority [...] filedocumented as of this encounter Care Teams Box Sealing Machine Feeder Relationship Specialty Start Date End Date Arthur Ng DO [address] [place] [address] PCP - General Family Medicine 11/20/19 documented as of this encounter
--- OUTSIDE RECORDS SUMMARY | 2024-12-03 04:52 | External Medical Summary ---
Author Name Unknown Address Unknown Organization [id number]:[facility] - [address] [facility] [place] [address] Laboratory Report Ordering Provider Test Date Status COREY ROMAN 09/17/2024 08:57:43 Final Observation Date Value Abnormality Reference (Units ) Status Triglyceride 09/17/2024 08:57:43 88 <=174 ( mg/dL) Final Triglyceride Reference Range s (mg/dL):
<150 Acceptable
150-174 Borderline high
175-499 High
>=500 Very high Cholesterol 09/17/2024 08:57:43 137 <200 (mg /dL) Final Total Cholesterol Reference Ranges (mg/dL):
<200 Desirable
200-239 Borderline high
>=240 High HDL 09/17/2024 08:57:43 65 >39 (mg/dL ) Final HDL Cholesterol Reference Ra nges (mg/dL):
>=60 High (Desirable)
<50 Low (Undesirable) For Females
<40 Low (Undesirable) For Males NON-HDL CHOLESTEROL 09/17/2024 08:57:43 72 <=159 (mg/dL) Final Non-HDL Cholesterol Referenc e Range (mg/dL):
<100 Target level for high risk ASCVD patient
<130 Optimal for general population
130-159 Near optimal for general population
160-189 Borderline High
190-219 High
>=220 Very High LDL, (calculated) 09/17/2024 08:57:43 54 <= 129 (mg/dL) Final LDL Cholesterol Reference Ra nges (mg/dL):
<70 Target level for high risk ASCVD patient
<100 Optimal for general population
100-129 Near optimal for general population
130-159 Borderline high
160-189 High
>=190 Very high Performing Location [facility] - [address] [facility] [address]
--- OUTSIDE RECORDS SUMMARY | 2024-12-03 04:52 | External Medical Summary ---
Author Name Unknown Address Unknown Organization [id number]:[facility] [place] [facility] - [address] [place] [address] Laboratory Report Ordering Provider Test Date Status COREY ROMAN 09/17/2024 08:57:43 Final Observation Date Value Abnormality Reference (Units ) Status SYNC LEUKOCYTES IN BLOOD BY AUTOMATED COUNT 09/17/2024 08:57:43 8.89 4.00-10.80 (K/uL) Final Segs 09/17/2024 08:57:43 59.8 40.0-75.0 (%) Final Lymphs % 09/17/2024 08:57:43 29.8 18.0-42.0 (%) Final Monos 09/17/2024 08:57:43 7.4 1.0-11.0 (%) Final Eosinophils 09/17/2024 08:57:43 2.7 0.0-6.0 (%) Final Basos 09/17/2024 08:57:43 0.3 0.0-2.0 (%) Final Absolute Segs 09/17/2024 08:57:43 5.31 1.80-7.70 (K/uL) Final Lymphs, absolute 09/17/2024 08:57:43 2.65 1.00-4.80 (K/ul) Final Monos, Abs 09/17/2024 08:57:43 0.66 0.00-1.10 (K/uL) Final Eos, Abs 09/17/2024 08:57:43 0.24 0.00-0.70 (K/uL) Final Basos, Abs 09/17/2024 08:57:43 0.03 0.00-0.20 (K/uL) Final Performing Location [facility] [place] [facility] - [address] [place] [address]
--- OUTSIDE RECORDS SUMMARY | 2024-12-03 04:52 | External Medical Summary | Summary of Care ---
Author Name Unknown Organization [facility] Address [address] [place] [facility] [place] [address] Phone [phone] Care Team Providers Care Clinical Unit Educator Name Role Phone Arthur Ng DO Primary Care Provider Reason for Visit * Reason Onset Date Comments Medication Refill 07/31/2024 Encounter Details Date Type Department Care Team (Late st Contact Info) Description 07/31/2024 Refill Family Practice [facility] [address] [place] [facility] [address] Arthur Ng DO [address] [place] [address] Allergies Active Allergy Reactions Criticality Noted Date Comments Amoxicillin-Pot Clavulanate Diarrhea Low 06/18/20 14 Metaxalone 06/18/1998 Skelexin-numbness and tingling, itching Percodan 10/12/1997 GI upset Sulfa Antibiotics 10/28/2002 rash documented as of this encounter (statuses as of 07/31/2024) Medications Medication Sig Dispensed Refills Start Date End Date Status aspirin enteric coated 81 MG TBEC Take 1 Tablet by mouth in the morning. 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 PULSATILE TINNITUS 0 Overview: Acute. Adenomatous colon polyp 03/23 Overview: 2mm sessile documented as of this encounter (statuses as of 07/31/2024) Immunizations Name Administration Dates Next Due COVID-19 mRNA, LNP-s, No Pre serve, 2-Dose Series (Voxify) 07/30/2021,02/09/2021,01/26/2021,01/10,12/20/2020 COVID-19, MRNA-LNP, 23-24, P F, 30 MCG/0.3 mL, 12 YRS AND ABOVE, IM ([employer]) 08/08/2023 Covid-19, Mrna, Lnp-s, Pf, B ivalent, 30 Mcg, IM, 12 yrs and above (Voxify) 01/19/2023 DTaP Dipth/Tet/Acell Pertussis (Infanrix), Peds 10/22/2006 [...] encounter Miscellaneous Notes * Telephone Encounter - Joie Osman - 07/31/2024 8:57 PM EDTRefused Prescriptions: Disp Refills Omeprazole 20 MG Oral Capsule Delayed Rele*90 Cap*1 Sig: Take 1Capsule by mouth in the morning.Refused By: LENA OSMANeason for Refusal: Duplicate Request------ documented in this encounter Plan of Treatment Upcoming Encounters Date Type Department Care Team (Late st Contact Info) Description 08/01/2024 12:20 PM EDT Immunization [facility] [address] [place] [address] [facility] [address] [place] [address] 08/05/2024 3:15 PM EDT Immunization [facility] [address] [place] [address] [place] [facility] [address] [place] [address] 04/10/2025 1:00 PM EDT Office Visit Orthopaedics Spine Surgery, [facility] [address] [place] [address] Dinesh Reilly MD [address] [place] [address] Scheduled Procedures Name Priority Associated Diagnoses Date/Ti [...] , 05/07/2023, Additional history exists Albumin/Creatinine Ratio 05/01/20252 024, 08/21/2023, 08/13/2023, Additional history exists GFR [...] filedocumented as of this encounter Care Teams Clinical Unit Educator Relationship Specialty Start Date End Date Arthur Ng DO [address] [place] [address] PCP - General Family Medicine 11/20/19 documented as of this encounter
--- OUTSIDE RECORDS SUMMARY | 2024-12-03 04:52 | External Medical Summary ---
Author Name Unknown Address Unknown Organization [id number]:[facility] [place] [address] [facility] [address] Laboratory Report Ordering Provider Test Date Status COREY ROMAN 09/17/2024 08:57:43 Final Observation Date Value Abnormality Reference (Units ) Status HbA1C 09/17/2024 08:57:43 6.2 Above high normal 4. 0-5.6 (%) Final The use of HbA1c to monitor glycemic status is based on normal hemoglobin and HbA composition. This test should not be used in patients with abnormal hemoglobin that affects the half life of the red blood cell or the in vivo glycation rates. Glucose, estimated average 09/17/2024 08:57:43 131 Above high normal <126 (mg/dL) Parth clark Performing Location [facility] [place] [address] [facility] [address]
--- OUTSIDE RECORDS SUMMARY | 2024-12-03 04:52 | External Medical Summary | Summary of Care ---
Author Name Unknown Organization [facility] Address [address] [facility] [place] [address] Phone [phone] Care Team Providers Care Grinder Set Up Operator Internal Name Role Phone Jessie Ng Primary Care Provider Reason for Visit * Reason Onset Date Comments Medication Refill 06/13/2024 Encounter Details Date Type Department Care Team (Late st Contact Info) Description 06/13/2024 Refill Family Practice [facility] [address] [place] [address] Robert Mccormick MD [address] [place] [address] Pain Allergies Active Allergy Reactions Criticality Noted [...] morning. 7 Active Blood Glucose Monitoring Suppl (Ghost VERIO) w/Device KITIndications:Type 2 diabetes mellitus without complication, without long-term current use of insulin (HCC) Use up to 4 times a day E11.9 1 Kit 0 Active OneTouch UltraSoft Lancets MISCIndications:Typ e 2 diabetes mellitus without complication, without long-term current use of insulin ([facility]) Use as directed 4 times a day as needed for Hyperglycemia (high sugar). Use up to four times a day as directed 100 Each 11 0 Active Glucose Blood (ONETOUCH VERIO) STRPIndications:Typ e 2 diabetes mellitus without complication, without long-term current use of insulin ([facility]) Use up to 4 times a day [...] for Muscle spasms. 30 Tablet 4 Active HYDROcodone-Acetami nophen 5-325 MG Oral TabletIndications:P ain Take 1 Tablet by mouth 3 times a day as needed (for pain). 90 Tablet 4 06/13/20 24 Discontinu ed(Refill) documented [...] back to 5-15 CPAP 8-15 RDI 15.4 [place] [facility] Patient Essential hypertension with goal blood [...] mRNA, LNP-s, No Pre serve, 2-Dose Series (Pet Ready) 07/30/2021,02/09/2021,01/26/2021,01/10,12/20/2020 COVID-19, MRNA-LNP, 23-24, P F, 30 MCG/0.3 mL, 12 YRS AND ABOVE, IM ([employer]) 08/08/2023 Covid-19, Mrna, Lnp-s, Pf, B ivalent, 30 Mcg, IM, 12 yrs and above ([employer]) 01/19/2023 DTaP Dipth/Tet/Acell Pertussis (Infanrix), Peds 10/22/2006 [...] Encounter - Jessie Ng DO - 06/16/2024 2:27 PM EDT Signed Prescriptions: Disp Refills HYDROcodone-Acetaminophen 5-325 MG Oral Ta*90 Tab*0 Sig: Take 1 Tablet by mouth 3 times a day as needed (for pain). Authorizing Provider: JESSIE NG * Telephone Encounter - Nat Coelho [facility] - 06/16/2024 12:12 PM EDTPending Prescriptions: Disp Refills HYDROcodone-Acetaminophen 5-325 MG Oral Ta*90 Tab*0 Sig: Take 1 Tablet by mouth 3 times a day as needed (for pain). * Telephone Encounter - Nat Coelho RPh - 06/16/2024 12:12 PM EDT I have reviewed the patients controlled substance dispensing history in the Prescription Drug Monitoring Program in compliance with the [facility] regulations before prescribing a controlled substance. PDMP checked on 06/16/2024. Pending Prescriptions: Disp Refills HYDROcodone-Acetaminophen 5-325 MG Oral T*90 Tab*0 Sig: Take 1 Tablet by mouth 3 times a day as needed (for pain). Last Visit: 05/01/2024 (in office), Visit date not found (telemedicine) Next Visit: Visit date not found Date medication was last filled: 05/16/24 Date medication is due for refill: 06/14/24 Pharmacy: [id number] [address] [facility] Is this request for a controlled substance? [...] in Results Review. Please approve if appropriate. Thanks, Nat Coelho Clinical Pharmacist [facility] ([facility]) [phone] 06/16/2024, 12:12 PM documented in this encounter Plan of Treatment Upcoming Encounters Date Type Department Care Team (Late st Contact Info) Description 06/30/2024 12:30 PM EDT Office Visit Otolaryngology [facility] [address] [place] [address] Bert Canela DO [address] [place] [address] 04/10/2025 1:00 PM EDT Office Visit Orthopaedics Spine Surgery, [facility] [address] [place] [address] Dinesh Reilly MD [address] [place] [address] Scheduled Procedures Name Priority Associated Diagnoses Date/Ti [...] pain documented in this encounter Care Teams Grinder Set Up Operator Internal Relationship Specialty Start Date End Date Jessie Ng DO [address] [place] [address] PCP - General Family Medicine 11/20/19 documented as of this encounter
--- OUTSIDE RECORDS SUMMARY | 2024-12-03 04:52 | External Medical Summary ---
Author Name Unknown Address Unknown Organization K01:LABORATORY [facility] - [facility] [address] [place] [address] Laboratory Report Ordering Provider Test Date Status JESSIECOREY MELGAR 09/17/2024 08:57:43 Final Observation Date Value Abnormality Reference (Units ) Status Albumin 09/17/2024 08:57:43 4.5 3.8-5.0 (g/dL) Final Sex Hormone Binding Globulin 09/17/2024 08:57:43 53 12-91 (nmol/L) Final Testosterone [Mass/volume] in Serum or Plasma 09/17/2024 08:57:43 314.5 193.0-740.0 (ng/dL) Final Free Testosterone, calculated 09/17/2024 08:57:43 44.7 35.0-130.0 (pg/mL) Final Bioavailable Testosterone, calculated 09/17/2024 08:57:43 109.4 79.0-335.0 (ng/dL) Final Performing Location LABORATORY [facility] - [address] [place] [address]
--- OUTSIDE RECORDS SUMMARY | 2024-12-03 04:52 | External Medical Summary ---
Author Name Unknown Address Unknown Organization K01[place] [address] [place] [address] Laboratory Report Ordering Provider Test Date Status JESSIECOREY Sullivan 09/17/2024 08:57:43 Final Observation Date Value Abnormality Reference (Units ) Status Free PSA 09/17/2024 08:57:43 2.58 (ng/mL) Final Free PSA % 09/17/2024 08:57:43 33 >25 (%) Final Performing Location [facility] [place] [address] [place] [address]
[2024-12-03 06:00] LABS: Hematocrit (blood only) 34.6 % (42.0-52.0); Hemoglobin 12.1 g/dl (14.0-18.0); Mean Corpuscular Hemoglobin 29.7 pg (25.0-34.0); Mean Platelet Volume 9.3 fL (9.4-12.4); Platelet Count 191 K/uL (130-400); RDW Standard Deviation 40.1 fL (36.4-46.3); Red Blood Count 4.07 M/uL (4.70-6.10); White Blood Count 6.64 K/ul (4.8-10.8)
[2024-12-03 06:15] LABS: BUN Creatinine Ratio 16.9 (10-20); Calcium 8.5 mg/dl (8.6-10.3); Chol HDL Ratio 2.2 (0-5); Creatinine Clr Calc Pharmacy 80.5 ml/min; Magnesium 2.1 mg/dl (1.7-2.4); Phosphorus 2.7 mg/dl (2.5-4.9); Potassium 3.7 mmol/L (3.5-5.1)
[2024-12-03 07:16] LABS: Estimated Average Glucose 154 mg/dl
[2024-12-03] MEDS: CLOPIDOGREL BISULFATE 75 MG TAB PO SCH (09:12)
[2024-12-03] MEDS: PANTOprazole 40 MG TAB PO SCH (09:12)
[2024-12-03] MEDS: ASPIRIN 81 MG ECTAB PO SCH (09:12)
[2024-12-03] MEDS: MULTIVITAMIN TAB PO SCH (09:12)
[2024-12-03] MEDS: ATORVASTATIN 40 MG TAB PO SCH (09:12)
--- NOTE | 2024-12-03 09:45 | Hospitalist Progress Note ---
Date of Service December 03, 2024 Assessment & Plan (1) Stroke-like symptoms: Plan: 73y/o M with PMHx significant for HTN, HLD, DMII, diabetic polyneuropathy, JERMAINE on CPAP, asthma, GERD, BPH with LUTS, sacroiliitis, insomnia and depression who presented to the ED for evaluation of strokelike symptoms - notably expressive aphasia. Head CT - No acute pathology. Cerebral atrophy and chronic small vessel ischemic disease. Neck CTA - Bilateral carotid atherosclerosis without apparent stenosis. Head CTA - No definite stenosis or aneurysm of the intracranial arteries. S/p 300mg Plavix and 40mg Lipitor in the ED as advised by the [facility] per discussion with the ED provider. MRI brain last night did not show any acute intracranial pathology Currently on ASA 81mg. Also on Plavix started this admission Continue outstanding stroke workup/[employer]ATIONS/PT/OT/TTE Imaging and history makes CVA less likely. Possibilities include Parkinsons etc Will appreciate Neurology's evaluation and input Will continue home zoloft for now till Neurology sees. Patient reports his chronic zoloft was recently increased around the begining of ther year (2) DM type 2 (diabetes mellitus, type 2): Plan: Hold home metformin SSI regimen while inpatient. BSG checks ACHS. Most recent Hgb A1c was 6.2% about 2 months ago. (3) Hypomagnesemia: Plan: Mag 1.4 on presentation. S/p repletion Mg is 2.1 today (4) Depression: Plan: Continue Zoloft 100mg QPM. Recently increased dose of Zoloft from 50mg QPM to 100mg QPM about 2 months ago. DVT Prophylaxis: SQ Heparin Code Status: FULL CODE PCP: Arthur Ng DO I spent a total of 55 minutes coordinating, documenting and providing care for this patient excluding time spent in performance of separately billed services Admission and Anticipated Discharge Date Admission Date: December 02, 2024 Subjective Patient seen and examined Reports he started having some tremors around beginning of the year (over 1 month ago) Can be at intention or at rest Reported his zoloft which he had been on for years was increased around the time but after tremors started. Tremors may have increased afterwards Reports he has been having expressive aphasia/problem saying what he wants to say sometimes since around the beginning of the year that worsened yesterday necessitating presentation. Denied any dysphagia, numbness, focal weakness, change in gait He does not think there is much change in his memory except for problems with expressing what he wants to say sometimes. Denied smoking, alcohol or illicit drug use Denied other complaints on ROS Physical Exam Constitutional: + well hydrated; no acute distress Eyes: PERRL, conjunctivae normal, anicteric sclerae ENMT: external ear and nose normal, oropharynx normal Respiratory: normal respiratory effort, lungs clear to auscultation Cardiovascular: Rate/Rhythm: regular rate and regular rhythm Gastrointestinal (Abdomen): normal bowel sounds, soft, nontender, no hepatosplenomegaly Musculoskeletal: No pedal edema Neurologic: PERRL, EOMI, accommodation nl, no face palsy, no dysarthria Normal mantilla/sensation Psychiatric: A+Ox3, euthymic affect Results & Data Results & Data Vital Signs (Past 12 Hours) Vital Signs Temp Pulse Pulse Pulse Resp BP Pulse Ox 12/03/24 08:24 64 12/03/24 07:00 36.5 C 68 16 162/76 H 98 12/03/24 03:55 37 C 63 16 152/79 H 97 12/02/24 22:39 64 12/02/24 22:18 36.9 C 63 16 167/75 H 96 O2 Del Method 12/03/24 08:24 12/03/24 07:00 Room Air 12/03/24 03:55 Room Air 12/02/24 22:39 12/02/24 22:18 Room Air Laboratory Results Abnormal lab results 12/02/24 12/02/24 12/02/24 Range/Units 16:19 17:30 21:26 RBC 4.03 L (4.70-6.10) M/uL Hgb 11.8 L (14.0-18.0) g/dl Hct 34.8 L (42.0-52.0) % MPV 9.2 L (9.4-12.4) fL [place] # (Auto) 0.64 H (0.11-0.59) K/uL BUN/Creatinine Ratio 23.8 H (10-20) Glucose 164 H (70-99(Fasting)) mg/dl POC Glucose 122 H (70-99) mg/dl Hemoglobin A1c (4.5-5.6) % Calcium 8.4 L (8.6-10.3) mg/dl Magnesium 1.4 L (1.7-2.4) mg/dl Total Protein 5.8 L (6.0-8.3) gm/dl Globulin 2.1 L (2.5-4.0) gm/dl Ur Specific [place] > 1.045 H (1.000-1.030) 12/03/24 Range/Units 05:23 RBC 4.07 L (4.70-6.10) M/uL Hgb 12.1 L (14.0-18.0) g/dl Hct 34.6 L (42.0-52.0) % MPV 9.3 L (9.4-12.4) fL [place] # (Auto) (0.11-0.59) K/uL BUN/Creatinine Ratio (10-20) Glucose 135 H (70-99(Fasting)) mg/dl POC Glucose (70-99) mg/dl Hemoglobin A1c 7.0 H (4.5-5.6) % Calcium 8.5 L (8.6-10.3) mg/dl Magnesium (1.7-2.4) mg/dl Total Protein (6.0-8.3) gm/dl Globulin (2.5-4.0) gm/dl Ur Specific [place] (1.000-1.030) (2) DM type 2 (diabetes mellitus, type 2) Diabetes mellitus intermodal 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
[2024-12-03] MEDS: ACETAMINOPHEN 325 MG TAB PO PRN (11:17)
--- NOTE | 2024-12-03 13:06 | Electrocardiogram Report ---
Test Reason : Blood Pressure : */* mmHG Vent. Rate : 76 BPM Atrial Rate : * BPM P-R Int : * ms QRS Dur : 88 ms QT Int : 412 ms P-R-T Axes : * -1 64 degrees QTcB Int : 463 ms Normal sinus rhythm Low voltage QRS Nonspecific T wave abnormality Abnormal ECG When compared with ECG of 17-Apr-2024 13:25, Nonspecific T wave abnormality now evident in Lateral leads Confirmed by Richard Chou ([id number]) on 12/03/2024 1:05:50 PM Referred By: REFERRED SELF Confirmed By: Richard Chou
--- NOTE | 2024-12-03 15:49 | Neurology Consultation ---
Date of Consultation December 03, 2024 Assessment & Plan (1) Expressive aphasia: MRI of the brain shows extensive white matter changes with differential diagnosis includes chronic microinfarcts, hypertensive encephalopathy,CADASIL(especially with a combination of headaches and possible mood disorder). Cannot rule out lymphoproliferative disease Plan Discontinue Plavix and continue with aspirin 81 mg in addition to atorvastatin. Obtain MRI axial T2 flair sequence, MRI with contrast to rule out any enhancement. The patient will need to follow-up with outpatient neurology. Speech therapy evaluation and treatment. Further recommendations to follow Telehealth Consultation Telehealth Information Telehealth Information: I performed this visit using a real-time telehealth connection between my location and the patients location ([facility]). After connecting through interactive tele-video, patient was identified by name and date of and/or wristband check.Patient (or authorized healthcare sales representative electric service) was informed that this was a telemedicine visit and it was being conducted confidentially over secure lines. My office door was closed and no one else was present in the room with me.Patient (or authorized healthcare sales representative electric service) provided consent to proceed with the visit, expressed an understanding of privacy and security of the telemedicine visit, and gave permission to have a hospital sales representative electric service in the room in order to assist with the visit and to conduct portions of the visit, as needed. I informed the p atient (or authorized healthcare sales representative electric service) that I reviewed their record and presented the opportunity for them to ask any questions regarding the visit today. The patient agreed to participate. History of Present Illness Reason for Consultation: speech changes, headaches Requesting Physician: Jayne Villareal MD Attending Physician: Jayne Villareal MD History of Present Illness Kody Pena is a 73Y old male with PMH of HTN, HLP, history of heart palpitations, depression who presented to ED yesterday with word finding difficulty that resolved by the time of ED evaluation.. The patient tells me that he started having difficulty with his speech that he calls expressive aphasia, however he reports difficulty with his thought process, focusing, even when writing, his writing can, incoherent. Also there are moments where he has difficulty understanding what is being said. He describes a long history of migraines, that has been better controlled over the past 20 years ever since he was started with Zoloft. He denies any associated visual changes any numbness or weakness, he has been some difficulties with hearing. He has difficulties retrieving names and some memory changes as well. Denies any other focal neurological deficits denies any recent illnesses Allergies Allergy/AdvReac Type Severity Reaction Status Date / Time citalopram Allergy Intermediate "ITCHY Unverified 09/19/20 15:09 HANDS" oxycodone Allergy Intermediate GI SYMPTOMS Verified 09/19/20 15:09 meperidine Allergy Mild Verified 09/19/20 15:09 metaxalone Allergy Unknown Verified 09/19/20 15:09 Sulfa (Sulfonamide Allergy Unknown Verified 09/19/20 15:09 Antibiotics) promethazine AdvReac Mild TRIGGERS Verified 09/19/20 15:09 MIGRAINES Home Medications Medication Instructions Recorded Confirmed Type aspirin 81 mg tablet,delayed 81 mg PO QAM 09/19/20 12/02/24 History release atorvastatin 40 mg tablet 40 mg PO QAM 09/19/20 12/02/24 History hydrocodone 5 mg-acetaminophen 325 1 tab PO TID PRN Pain 09/19/20 12/02/24 History mg tablet omeprazole 20 mg capsule,delayed 20 mg PO QAM 09/19/20 12/02/24 History release betamethasone, augmented 0.05 % 1 applic topical BID PRN 12/02/24 12/02/24 History topical ointment DIRECTED metformin 500 mg tablet,extended 500 mg PO BIDM 12/02/24 12/02/24 History release 24 hr multivitamin 1 tab PO QAM 12/02/24 12/02/24 History ondansetron 4 mg disintegrating 4 mg translingual Q8 PRN 12/02/24 12/02/24 History tablet NAUSEA/VOMITING sertraline 100 mg tablet 100 mg PO QPM 12/02/24 12/02/24 History sildenafil 50 mg tablet 50 - 100 mg PO DAILY PRN Erectile 12/02/24 12/02/24 History Dysfunction tamsulosin 0.4 mg capsule 0.4 mg PO QAM 12/02/24 12/02/24 History testosterone 50 mg/5 gram (1 %) 50 mg transdermal QAM 12/02/24 12/02/24 History transdermal gel Patient History Medical History No pertinent family history Diarrhea Hypertension Surgical History No pertinent past surgical history Social History Smoking Status: Former smoker Smoking End Date: 1985; Hx Alcohol Use: No Hx Substance Use: No Preferred Language: Turkish Communication Ability: Effective 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 Required: No Beliefs That Will Affect Care: None Current Living Situation: Spouse Other Information That Helps Us Care for You: No Feels Safe at Home: Yes Safety Concerns: Feels Safe At This Time Assistive Devices: CPAP Review of Systems Constitutional: Patient denies weight loss, fever, chills, and night sweats Eyes: Patient denies change in vision, tearing, pain, and redness ENT: Patient denies pain, bleeding, rhinorrhea, and dysphagia Cardiovascular: Patient denies chest pain, palpitation, dyspnea at rest, and dyspnea with exertion Respiratory: Patient denies shortness of breath, cough, wheezing, and productive cough GI: Patient denies reflux, pain, constipation, and diarrhea Skin: Patient denies rash, dryness, and itching Allergies/Immune System: Patient denies rhinorrhea, seasonal allergies, reaction to current MEDS, and joint swelling Endocrine: Patient denies weight loss, weight gain, temperature intolerance, and excessive thirst Neurological: All negative unless mentioned in the HPI Physical Exam General Constitutional: Appearance normally developed Head and face: normocephalic and atraumatic Eyes: no ptosis, no anisocoria, and no dysconjugate gaze Respiratory: normal effort Cardiovascular: regular rhythm and regular rate Abdomen: non distended Skin: no rashes, lesions, or ulcers noted Psychiatric: normal judgement and insight, normal mood, and normal affect NEUROLOGIC EXAMINATION: Mental Status:alert, oriented to time, place, person, normal recent memory, normal remote memory, normal attention span, normal concentration, some difficulty finding words and normal fund of knowledge Cranial Nerves: CN 2 - no visual defect on confrontation and pupils round, equal, reactive to light CN 3, 4, 6 - extra-ocular movements intact and no nystagmus CN 5 - facial sensation intact CN 7 - no facial asymmetry CN 8 - intact hearing CN 9, 10 - palate symmetric, normal gag CN 11 - good shoulder shrug CN 12 - tongue midline MOTOR: Strength was at least antigravity throughout, Pronator drift was absent and There were no abnormal movements SENSATION: intact and symmetric to pinprick, light touch, vibration and joint position GAIT: stable, no ataxia and can perform tandem walking COORDINATION: no ataxia with finger to nose testing and heel to sanders testing REFLEXES: cannot assess over telemedicine NIH Stroke Scale: 1a. Level of Consciousness: alert = 0 1b. LOC Questions: (month, age): both correct = 0 1c. LOC Commands (open and close eyes, make fist and let go using non-paretic hand): obeys both correctly = 0 2. Best Gaze (eyes open and patient follows examiner's finger or face): normal = 0 3. Visual (visual threat or finger counting in each quadrant): no loss = 0 4. Facial Palsy (show teeth, raise eye brows and squeeze eyes shut, or grimace symmetry in a comatose patient): normal = 0 5a. Motor Arm (extend arm (palms down) to 90 degrees and score drift/movement (10 seconds) - Left: no drift = 0 5b. Motor Arm: (extend arm (palms down) to 90 degrees and score drift/movement (10 seconds) - Right: no drift = 0 6a. Motor Leg (elevate leg 30 degrees and score drift/ movement (5 seconds) - Left: no drift = 0 6b. Motor Leg (elevate leg 30 degrees and score drift/ movement (5 seconds) - Right: no drift = 0 7. Limb Ataxia (finger to nose, heel down sanders): absent = 0 8. Sensory (pin prick to face, arm, trunk and leg, compare side to side): normal = 0 9. Best Language: aphasia = 0 10. Dysarthria (evaluate speech clarity by patient repeating listed words): normal articulation = 0 11. Extinction and Inattention: no neglect = 0 Total: 0 Results & Data Vital Signs (Past 12 Hours) Vital Signs Temp Pulse Pulse Pulse Resp BP Pulse Ox 12/03/24 15:07 72 12/03/24 11:50 36.2 C L 73 17 144/76 H 95 12/03/24 08:24 64 12/03/24 07:00 36.5 C 68 16 162/76 H 98 12/03/24 03:55 37 C 63 16 152/79 H 97 O2 Del Method 12/03/24 15:07 12/03/24 11:50 Room Air 12/03/24 08:24 12/03/24 07:00 Room Air 12/03/24 03:55 Room Air Laboratory Results Laboratory Results - last 24 hr 12/02/24 12/02/24 12/02/24 16:19 17:30 21:26 WBC 7.09 RBC 4.03 L Hgb 11.8 L Hct 34.8 L MCV 86.4 MCH 29.3 MCHC 33.9 RDW Std Deviation 40.5 RDW Coeff of [place] 13.0 Plt Count 179 MPV 9.2 L Immature Gran % (Auto) 0.4 Neut % (Auto) 50.5 Lymph % (Auto) 36.4 [place] % (Auto) 9.0 Eos % (Auto) 3.1 Baso % (Auto) 0.6 Neut # (Auto) 3.58 Lymph # (Auto) 2.58 [place] # (Auto) 0.64 H Eos # (Auto) 0.22 Baso # (Auto) 0.04 Immature Gran # (Auto) 0.03 PT 11.0 INR 1.0 APTT 24 PTT Ratio 0.9 Sodium 137 Potassium 3.5 Chloride 104 Carbon Dioxide 28 Anion Gap 5 BUN 19 Creatinine 0.80 Est Cr Clr Drug Dosing 83.6 eGFR 92.87 BUN/Creatinine Ratio 23.8 H Glucose 164 H POC Glucose 122 H Estimat Average Glucose Hemoglobin A1c Lactate 1.7 Calcium 8.4 L Phosphorus Magnesium 1.4 L Total Bilirubin 0.5 AST 16 ALT 15 Alkaline Phosphatase 62 Troponin I High Sens 3.7 Total Protein 5.8 L Albumin 3.7 Globulin 2.1 L Albumin/Globulin Ratio 1.8 Triglycerides Cholesterol LDL Cholesterol, Calc VLDL Cholesterol, Calc HDL Cholesterol Cholesterol/HDL Ratio Urine Color Yellow Urine Appearance Clear Urine pH 5.5 Ur Specific [place] > 1.045 H Urine Protein Negative Urine Glucose (UA) Negative Urine Ketones Negative Urine Blood Negative Urine Nitrite Negative Urine Bilirubin Negative Urine Urobilinogen Negative Ur Leukocyte Esterase Negative Blood Type O Negative Antibody Screen NEGATIVE 12/03/24 12/03/24 05:23 14:09 WBC 6.64 RBC 4.07 L Hgb 12.1 L Hct 34.6 L MCV 85.0 MCH 29.7 MCHC 35.0 RDW Std Deviation 40.1 RDW Coeff of [place] 13.0 Plt Count 191 MPV 9.3 L Immature Gran % (Auto) Neut % (Auto) Lymph % (Auto) [place] % (Auto) Eos % (Auto) Baso % (Auto) Neut # (Auto) Lymph # (Auto) [place] # (Auto) Eos # (Auto) Baso # (Auto) Immature Gran # (Auto) PT INR APTT PTT Ratio Sodium 142 Potassium 3.7 Chloride 107 Carbon Dioxide 28 Anion Gap 7 BUN 14 Creatinine 0.83 Est Cr Clr Drug Dosing 80.5 eGFR 91.84 BUN/Creatinine Ratio 16.9 Glucose 135 H POC Glucose 141 H Estimat Average Glucose 154 Hemoglobin A1c 7.0 H Lactate Calcium 8.5 L Phosphorus 2.7 Magnesium 2.1 Total Bilirubin AST ALT Alkaline Phosphatase Troponin I High Sens Total Protein Albumin Globulin Albumin/Globulin Ratio Triglycerides 105 Cholesterol 123 LDL Cholesterol, Calc 45 VLDL Cholesterol, Calc 21 HDL Cholesterol 57 Cholesterol/HDL Ratio 2.2 Urine Color Urine Appearance Urine pH Ur Specific [place] Urine Protein Urine Glucose (UA) Urine Ketones Urine Blood Urine Nitrite Urine Bilirubin Urine Urobilinogen Ur Leukocyte Esterase Blood Type Antibody Screen Diagnostic Findings Head CT 12/02/24 16:00 Clinical History: Possible stroke Technique: Axial computed tomography images were obtained of the brain without intravenous contrast. Findings: There is mild cerebral atrophy, within expected limits for the patient's age. Extensive areas of decreased attenuation are seen within the periventricular white matter, likely representing chronic small vessel ischemic disease. There is no definite sign of acute or old infarction. No intracranial hemorrhage is evident. No definite mass lesion is seen on this noncontrast examination. There is no midline shift or other form of herniation. No hydrocephalus is seen. No fracture is identified. There is a small mucous retention cyst in the right maxillary sinus. The mastoid air cells appear clear. Impression: 1. Cerebral atrophy and chronic small vessel ischemic disease 2. No definite acute pathology These findings were discussed with the emergency department physician at 4:18 PM on 12/02/2024 Electronically signed by Cortez Alexis 12-02-2024 4:18 PM Head CTA 12/02/24 16:06 Clinical history: Expressive aphasia. Possible stroke Technique: Axial computed tomography images were obtained of the brain after the administration of intravenous contrast according to the CT angiogram protocol Findings: There is calcified plaque within the cavernous and supraclinoid segments of the internal carotid arteries bilaterally No definite stenosis or aneurysm is seen of the anterior, middle, or posterior cerebral artery circulations. The visualized vertebral arteries and the basilar artery appear unremarkable Impression: No definite stenosis or aneurysm of the intracranial arteries Electronically signed by Cortez Alexis 12-02-2024 4:34 PM Neck CTA 12/02/24 16:06 Clinical history: Expressive aphasia. Possible stroke Technique: Axial computed tomography images were obtained of the neck after the administration of intravenous contrast according to the CT angiogram protocol Findings: No stenosis is seen of the common carotid arteries bilaterally. There is partially calcified plaque within the right carotid bulb and the proximal left internal carotid artery, less than 30% diameter narrowing. The remainder of the internal carotid arteries appear patent bilaterally. No stenosis of the external carotid arteries is seen The vertebral arteries are patent bilaterally with no significant stenosis seen. 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 Impression: Bilateral carotid atherosclerosis, without apparent stenosis Electronically signed by Cortez Alexis 12-02-2024 4:36 PM Chest X-Ray 12/02/24 16:11 Exam: Chest (two views) Reason for exam: Stroke alert Previous studies 01/05/2016 PA and lateral views of the chest demonstrate the lung melissa to be clear and normally expanded. The cardiovascular markings and pulmonary vascular pattern appear normal. Mediastinal structures and ravin are normal. Chronic elevation the right hemidiaphragm is stable. The bones and soft tissues show no active process. Impression: Negative for active cardiopulmonary disease. Electronically signed by Jay Jay Martin 12-02-2024 5:26 PM Brain MRI 12/02/24 20:57 Exam(s): MRI HEAD Without Contrast EXAM: MR Head Without Intravenous Contrast CLINICAL HISTORY: Reason for exam: stroke r/o. TECHNIQUE: Magnetic resonance images of the head/brain without intravenous contrast in multiple planes. COMPARISON: No relevant prior studies available. FINDINGS: Brain: Advanced nonspecific right lateral changes. The flow voids at the base the brain are intact. No mass. No hemorrhage. No acute infarct. Ventricles: Unremarkable. No ventriculomegaly. Bones/joints: Unremarkable. No acute fracture. Sinuses: Unremarkable as visualized. No acute sinusitis. Mastoid air cells: Unremarkable as visualized. No mastoid effusion. Orbits: Bilateral lens replacements. IMPRESSION: No evidence for acute intracranial pathology. Electronically signed by: Amalia Barker MD 12/03/24 00:31 AM Medications Administered Home Medications Medication Instructions Recorded Confirmed Last Taken aspirin 81 mg tablet,delayed 81 mg PO QAM 09/19/20 12/02/24 12/02/24 release atorvastatin 40 mg tablet 40 mg PO QAM 09/19/20 12/02/24 12/02/24 hydrocodone 5 mg-acetaminophen 325 1 tab PO TID PRN Pain 09/19/20 12/02/2409/18/20 mg tablet omeprazole 20 mg capsule,delayed 20 mg PO QAM 09/19/20 12/02/24 12/02/24 release betamethasone, augmented 0.05 % 1 applic topical BID PRN 12/02/24 12/02/24 Unknown topical ointment DIRECTED metformin 500 mg tablet,extended 500 mg PO BIDM 12/02/24 12/02/24 12/02/24 release 24 hr am multivitamin 1 tab PO QA 12/02/24 12/02/24 12/02/24 ondansetron 4 mg disintegrating 4 mg translingual Q8 PRN 12/02/24 12/02/24 Unknown tablet NAUSEA/VOMITING sertraline 100 mg tablet 100 mg PO QPM 12/02/24 12/02/24 12/01/24 sildenafil 50 mg tablet 50 - 100 mg PO DAILY PRN Erectile 12/02/24 12/02/24 Unknown Dysfunction tamsulosin 0.4 mg capsule 0.4 mg PO QA 12/02/24 12/02/24 12/02/24 testosterone 50 mg/5 gram (1 %) 50 mg transdermal QA 12/02/24 12/02/24 12/02/24 transdermal gel Active Medications Generic Name Dose Route Start Last Admin Trade Name Key PRN Reason Stop Dose Admin Acetaminophen 650 mg 12/02/24 20:57 12/03/24 15:26 Acetaminophen 325 Mg Tab PO 01/01/25 20:56 650 mg Q4H PRN Administration Pain or Fever Aspirin 81 mg 12/03/24 09:00 12/03/24 09:12 Aspirin 81 Mg Ectab PO 01/02/25 08:59 81 mg QAM KAREEN Administration Atorvastatin Calcium 40 mg 12/03/24 09:00 12/03/24 09:12 Atorvastatin 40 Mg Tab PO 01/02/25 08:59 40 mg QAM KAREEN Administration Clopidogrel Bisulfate 75 mg 12/03/24 09:00 12/03/24 09:12 Clopidogrel Bisulfate 75 Mg Tab PO 01/02/25 08:59 75 mg QAM KAREEN Administration Heparin Sodium (Porcine) 5,000 units 12/02/24 21:00 12/03/24 09:26 Heparin Sod 5,000 Unit/0.5 Ml Vial SQ 01/01/25 20:59 5,000 units Q12 KAREEN Administration Insulin Aspart 0 units 12/02/24 21:00 12/03/24 14:16 Insulin Aspart Per Unit Charge SC 01/01/25 20:59 7 units ACHS KAREEN Administration Multivitamins 1 tab 12/03/24 09:00 12/03/24 09:12 Multivitamin Tab PO 01/02/25 08:59 1 tab QAM KAREEN Administration Pantoprazole Sodium 40 mg 12/03/24 09:00 12/03/24 09:12 Pantoprazole 40 Mg Tab PO 01/02/25 08:59 40 mg QAM KAREEN Administration Sertraline HCl 100 mg 12/02/24 21:00 12/02/24 21:30 Sertraline Hcl 100 Mg Tablet PO 01/01/25 20:59 100 mg QPM KAREEN Administration
[2024-12-03] MEDS: GADOBUTROL 65ML VIAL IV ONE (17:05)
--- NOTE | 2024-12-03 17:45 | Magnetic Resonance Report ---
MRI of the brain performed with and without IV contrast History: Neuro deficit Comparison: None Technique: Multiplanar T1 weighted, axial T2/FLAIR, and susceptibility images were obtained without intravenous contrast. Following intravenous gadolinium based contrast administration, axial T2 weighted, diffusion, and T1-weighted images were obtained. 8.5 mL Gadavist. Findings: No evidence for intracranial mass lesion, mass-effect, midline shift, or abnormal extra-axial fluid collection. Postcontrast images demonstrate no abnormal intracranial enhancement. The orbits are grossly unremarkable. The ventricles and sulci are within normal limits for age. No microhemorrhages detected on the T2*GRE images. There is extensive, confluent patchy high signal intensity abnormality on T2/FLAIR throughout the white matter of both cerebral hemispheres, with relative sparing of the subcortical U fibers. There are just a few tiny high signal intensity foci in the corrine. There is a single tiny focus of hyperintensity in the left thalamic nucleus. There is involvement of the anterior temporal lobes, as well as the external capsule. There is relative sparing of the occipital and orbital frontal subcortical white matter. No abnormally reduced diffusion or evidence for acute infarct. Normal intravascular flow voids. Impression: No abnormal enhancement, or enhancing masses identified. There is confluent high signal intensity abnormality throughout the white matter on T2/FLAIR. As described above, the findings would be compatible with the differential of CADASIL, with involvement of the anterior temporal lobes and external capsules, and relative sparing of the orbital frontal and occipital lobe white matter. Differential includes small vessel ischemic disease, as well as subcortical arteriosclerotic encephalopathy. Electronically signed by Trever Ng 12-03-2024 5:42 PM
[2024-12-04 07:35] VITALS: RESP 16
[2024-12-04 08:34] LABS: Hematocrit (blood only) 37.3 % (42.0-52.0); Hemoglobin 12.8 g/dl (14.0-18.0); Mean Corpuscular Hemoglobin 29.3 pg (25.0-34.0); Mean Corpuscular Hgb Conc 34.3 g/dL (32.0-36.0); Mean Corpuscular Volume 85.4 fL (80.0-100.0); Mean Platelet Volume 9.1 fL (9.4-12.4); Platelet Count 192 K/uL (130-400); RDW Coefficient of Variation 12.8 % (11.5-14.5); RDW Standard Deviation 39.9 fL (36.4-46.3); Red Blood Count 4.37 M/uL (4.70-6.10); White Blood Count 6.81 K/ul (4.8-10.8)
[2024-12-04 09:10] LABS: BUN Creatinine Ratio 19.4 (10-20); Creatinine Clr Calc Pharmacy 71.3 ml/min; Magnesium 1.9 mg/dl (1.7-2.4); Phosphorus 3.1 mg/dl (2.5-4.9)
[2024-12-04] MEDS: amLODIPine BESYLATE 5 MG TAB PO SCH (09:25)
[2024-12-04 11:48] VITALS: TEMP 98.8; O2SAT 91
--- NOTE | 2024-12-04 13:44 | Communication Note ---
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 This is less likely presentation of vasculitis. Continue supportive care. Continue with aspirin and statin. Follow-up with neurology as an outpatient
--- NOTE | 2024-12-04 14:11 | Discharge Summary ---
Date of Service December 04, 2024 Admission HPI Per Admitting Provider Jean Gates is a 73y/o M with PMHx significant for HTN, HLD, DMII, diabetic polyneuropathy, JERMAINE on CPAP, asthma, GERD, BPH with LUTS, sacroiliitis, insomnia and depression who presented to the ED for evaluation of strokelike symptoms including expressive aphasia and word finding difficulty. History obtained with the patient, at bedside and associated chart review. Patient seen at bedside with Dr. Andrews. Patient initially seen in ED triage and made a stroke alert by nursing staff as it was reported that the patient's strokelike symptoms began an hour prior to presentation. However, upon the ED provider's further discussion with the patient's at bedside, it was determined that the patient's symptoms actually started about 2 weeks ago and subsequently worsened today which prompted her to bring him in for evaluation. Patient reports difficulty with word finding and expressive aphasia over the past 2 weeks. Also with some slurred speech. mentions that it got to the point today where he could "not get his words out." Patient also mentions that he was trying to file out his tax forms earlier today and was unable to write. Mentions he could hold a pen but did could not comprehend how to write anything. Denies any weakness, numbness or tingling in his extremities since this all began 2 weeks ago. Also denies any facial drooping, visual disturbances or gait abnormalities over the past 2 weeks. No recent medication changes other than his Zoloft dose was increased from 50mg QPM to 100mg QPM about 2 months ago. He has BUE tremors which have been ongoing since he started taking Zoloft. He notes that his tremors seem to be worse since increasing his Zoloft dose 2 months ago but denies any loss of strength in his BUE. At the time of our evaluation, patient feels his speech is back to baseline. Head CT noted cerebral atrophy and chronic small vessel ischemic disease but otherwise was negative for any acute infarcts. Head CTA with no definite stenosis or aneurysm of the intracranial arteries. Neck CTA with bilateral carotid atherosclerosis however there is no apparent stenosis. CXR unremarkable. S/p 300mg Plavix and 40mg Lipitor in the ED as advised by the [place] [facility] per discussion with the ED provider. Thrombolytics not indicated. Also s/p 1L NSS in the ED. No alcohol use. Stopped smoking back in October 1985. 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 Admission Exam Per Admitting Provider GENERAL: Alert and oriented x3. NAD, on RA. some pauses during communication, overall was good. HEENT: No pallor, no icterus. Pupils equal, round and reactive to light. Oral mucosa moist. NECK: No JVD, no neck masses. HEART: S1 and S2 heard. Regular rate and rhythm. No murmur, no gallop. RESPIRATORY SYSTEM: Normal AP diameter. No accessory muscle use. No wheezing, no crackles. ABDOMEN: Soft, bowel sounds present, nontender, no distention. CENTRAL NERVOUS SYSTEM: No facial droop. Speech is clear. Obeys simple commands. Moves extremities. power 5/5 all extremities. EXTREMITIES: No edema, no erythema seen. 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) Hypertension Discharge Exam Constitutional + well hydrated; no acute distress Eyes PERRL, conjunctivae normal, anicteric sclerae ENMT external ear and nose normal, oropharynx normal Respiratory normal respiratory effort, lungs clear to auscultation Cardiovascular Rate/Rhythm: regular rate and regular rhythm Gastrointestinal (Abdomen) normal bowel sounds, soft, nontender, no hepatosplenomegaly Musculoskeletal No pedal edema Neurologic PERRL, EOMI, accommodation nl, no face palsy, no dysarthria Psychiatric A+Ox3, euthymic affect Discharge Data Allergies Allergy/AdvReac Type Severity Reaction Status Date / Time citalopram Allergy Intermediate "ITCHY Unverified 09/19/20 15:09 HANDS" oxycodone Allergy Intermediate GI SYMPTOMS Verified 09/19/20 15:09 meperidine Allergy Mild Verified 09/19/20 15:09 metaxalone Allergy Unknown Verified 09/19/20 15:09 Sulfa (Sulfonamide Allergy Unknown Verified 09/19/20 15:09 Antibiotics) promethazine AdvReac Mild TRIGGERS Verified 09/19/20 15:09 MIGRAINES Consultations 12/02/24 17:13 ED Decision to Admit Stat 12/02/24 20:57 Consult Neurology Routine Ordered Studies 12/02/24 16:00 CT head/brain wo con Stat 12/02/24 16:06 CT angio head w con Stat CT angio neck with con Stat 12/02/24 20:57 MR brain wo con Routine 12/03/24 15:51 MR brain wo/w con Urgent Hospital Course (1) Stroke-like symptoms: 73y/o M with PMHx significant for HTN, HLD, DMII, diabetic polyneuropathy, JERMAINE on CPAP, asthma, GERD, BPH with LUTS, sacroiliitis, insomnia and depression who presented to the ED for evaluation of strokelike symptoms - notably expressive aphasia. Head CT - No acute pathology. Cerebral atrophy and chronic small vessel ischemic disease. Neck CTA - Bilateral carotid atherosclerosis without apparent stenosis. Head CTA - No definite stenosis or aneurysm of the intracranial arteries. S/p 300mg Plavix and 40mg Lipitor [facility] the ED [facility] per discussion with the ED provider. MRI brain did not show any acute intracranial pathology His dysphasia improved Neurology evaluated and recommended getting MRI brain w/co and T2 flair MRI Brain w/co had findings compatible with CADASIL Discussed with Neurology who noted that history and findings suggests CADASIL Neurology recommends patient to continue his ASA, atorvastatin and to follow up with Neurology outpatient (2) DM type 2 (diabetes mellitus, type 2): Most recent Hgb A1c was 6.2% about 2 months ago. Continue home metformin (3) Hypomagnesemia: Mag 1.4 on presentation. Repleted and normalized (4) Depression: Continue Zoloft 100mg QPM. 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, [facility] Diet: Heart Healthy Addtl Attending Provider Instructions: Mr Gates You presented to the hospital complaining of word finding difficulties which was extensively evaluated. Please continue your aspirin and atorvastatin You were also found to have elevated blood pressures and started on amlodipine Please ensure follow up with your Primary Doctor and Neurology. It was a pleasure taking care of you Pending Studies at Discharge: No Stand-Alone Forms: My [facility], Smoking Cessation Medications and DC Order Prescriptions: New amlodipine [Norvasc] 5 mg Tablet 5 mg PO QAM 30 Days Qty: 30 0RF Continued atorvastatin 40 mg tablet 40 mg PO QAM hydrocodone-acetaminophen 5-325 mg tablet 1 tab PO TID PRN (Reason: Pain) aspirin 81 mg Tablet,Delayed Release (Dr/Ec) 81 mg PO QAM omeprazole 20 mg capsule,delayed release(DR/EC) 20 mg PO QAM sertraline 100 mg tablet 100 mg PO QPM metformin 500 mg tablet extended release 24 hr 500 mg PO BIDM multivitamin Tablet 1 tab PO QAM ondansetron 4 mg tablet,disintegrating 4 mg translingual Q8 PRN (Reason: NAUSEA/VOMITING) tamsulosin 0.4 mg capsule 0.4 mg PO QAM sildenafil 50 mg tablet 50 - 100 mg PO DAILY PRN (Reason: Erectile Dysfunction) testosterone 50 mg/5 gram (1 %) gel 50 mg transdermal QAM Rx Instructions: APPLY 5 GRAMS TO SHOULDERS AND UPPER ARMS IN THE MORNING betamethasone, augmented 0.05 % ointment 1 applic TOPICAL BID PRN (Reason: DIRECTED) Rx Instructions: DO NOT USE FOR MORE THAN 2 WEEKS AT A TIME Discharge Orders: Discharge Order (Routine); Ordered 12/04/24 Ordered By: Jayne [place]/Other Patient Handouts: Managing Type 2 Diabetes Admission Data Admit Date/Time: 12/02/24 17:25 Attending Provider: Jayne Villareal I. Admit Provider: Brian Andrews Primary Care Provider: Arthur Ng Other Providers: Brian Andrews; Connie Friedman Other Interventions: Discharge Summary Assessment (RN) Last Done: 12/04/24 14:12
[2024-12-04 14:13] VITALS: BP 162/85; PULSE 73
== END 2024-12-04 14:25 | disposition home or self-care (01) | DRG 71 ==
LOC: ED 15:47 → 2N 17:25 → SUATTDRO 17:25 → 2N 20:21